=== PATIENT | male | born 1965 | race Caucasian/White ===

== ENCOUNTER 2016-11-10 13:28 | Emergency (ER) | payer MEDICARE ==
[2016-11-10] MEDS ORDERED: BENZTROPINE MESYLATE INJ 2 MG/2 ML AMPULE IV ONE ×2 (14:00→15:15)
--- NOTE | 2016-11-10 14:02 | ER Document Report ---
ED General - General Mode of Arrival: Medic Information source: Patient, Relative - DAUGHTER TRAVEL OUTSIDE OF THE [place] IN LAST 30 DAYS: No - HPI Onset: Just prior to arrival Associated symptoms: None Exacerbated by: Denies Relieved by: Denies Similar symptoms previously: Yes - A few years ago <DEIDRA NUGENT - Last Filed: 11/10/16 19:20> <ANUPAMISHAANASTACIA - Last Filed: 11/11/16 01:35> <BASHIR BERRY - Last Filed: 11/12/16 15:13> - General Chief Complaint: Allergic Reaction Stated Complaint: POSSIBLE ALLERGIC REACTION Notes: Patient presents via EMS for dystonic reaction. Daughter reports that she went to walk November and when she came back patient was jerking. Patient takes multiple medications for history of stroke bipolar schizophrenia depression. He reports he had a lot of pain on his left side last night he woke up crying. He reports he has a history of pain to that area. This is not unusual. He eventually cried himself to sleep. He felt fine this morning when he woke up. Approximately 2 hours ago he started having a dystonic reaction such as muscle jerking the left side. He now has arched back, facial mouth tugging to right side. Reports he feels like he is having a hard time breathing. Denies fever vomiting diarrhea. Denies trauma. (DEIDRA NUGENT) - Related Data Allergies/Adverse Reactions: varenicline tartrate [From Chantix] Allergy (Unknown, Verified 04/18/14 08:47) Past Medical History - General Information source: Patient, Relative - Social History Frequency of alcohol use: None Drug Abuse: None Lives with: Family - Past Medical History Cardiac Medical History: Reports: Hx Coronary Artery Disease, Hx Hypercholesterolemia, Hx Hypertension Denies: Hx Heart Attack Pulmonary Medical History: Reports: Hx COPD, Hx Pneumonia Denies: Hx Asthma, Hx Bronchitis Neurological Medical History: Reports: Hx Cerebrovascular Accident - left side effected. Denies: Hx Seizures Musculoskeltal Medical History: Reports Hx Arthritis Psychiatric Medical History: Reports: Hx Bipolar Disorder - Immunizations Hx Diphtheria, Pertussis, Tetanus Vaccination: No <DEIDRA NUGENT - Last Filed: 11/10/16 19:20> - Social History Smoking Status: Unknown if Ever Smoked Family History: Reviewed & Not Pertinent <BASHIR BERRY - Last Filed: 11/12/16 15:13> Course - Laboratory Result Diagrams: 11/10/16 17:05 11/10/16 13:40 <DEIDRA NUGENT - Last Filed: 11/10/16 19:20> - Laboratory Result Diagrams: 11/10/16 17:05 11/10/16 13:40 <ANUPANASTACIA LION - Last Filed: 11/11/16 01:35> - Laboratory Result Diagrams: 11/10/16 17:05 11/10/16 13:40 <BASHIR BERRY - Last Filed: 11/12/16 15:13> - Re-evaluation Re-evalutation: 11/10/16 14:16 I have consulted the attending provider dr archibald per [facility] guidelines who advised cogentin 1mg IV. Pt has already received 50mg IV benadryl Daughter is not sure of all his medications. Daughter reports she hides his medications from him because he tries to take them as he wants. 11/10/16 14:20 I contacted [facility] they are faxing me his list of medications. 11/10/16 15:01 Received faxed medication list from [facility]. Patient is supposed to be taking Cogentin 2 mg by mouth every day with food. Daughter reports they have not been able to afford the medication he has not been receiving it. Also discovered patient has smoked pot at approximately 10:00. Daughter went to [facility] at around 11:30 when she came back he was having a dystonic type reaction. Patient received 1 mg of Cogentin in his IV. He seems to be relaxing more. 11/10/16 16:48 I had José Miguel from the psych consult patient. She has contacted Dr. Amilcar Limon. During conversation with the daughters it was discovered that he stopped all his antipsychotic medication at one time. The following medications were stopped- cogentin, trazadone, clonopin, celexa, geodon, gapabentin. Dr Limon is concerned for neuro malignant syndrome. 11/10/16 17:42 CK. Not elevated. I contacted Dr. Limon. She reports he came needs to be repeated in 6 hours. She also reports the first CK is often not elevated. She reports needs to be monitored if the CK does go up and he should be admitted to be treated for those symptoms with fluids. If not he should be kept in the emergency department overnight monitored and she will be in in the morning to see him. Patient has been given amantadine and will have another dose later tonight. Dr. Archibald updated on plan of care 11/10/16 19:21 Report given to Anastacia BOLNAOS. (DEIDRA NUGENT) 11/11/16 Patient reevaluated, he states that he feels restless and he wants to be old asleep, he is asking for something for this, ticks and spasms have not appeared to have worsened. Patient given Ativan 0.5 mg after he continued ask. CK trended, is not significantly elevated, no evidence of rhabdomyolysis or other acute abnormality, patient medically cleared. (ANASTACIA SOLORIO) 11/12/16 15:09 Pt has no complaint at this time. CT shows old lacunar infarcts and no acute changes. He is medically cleared. Evaluated by psych and IVC will be upheld. Will be transferred to [facility] under Dr. Johnson's service. (BASHIR BERRY) - Vital Signs Vital signs: Temp Pulse Resp BP Pulse Ox 97.8 F 85 16 145/80 H 97 11/12/16 10:20 11/12/16 10:20 11/12/16 10:20 11/12/16 10:20 11/12/16 10:20 (ANASTACIA SOLORIO) (BASHIR BERRY) - Laboratory Laboratory results interpreted by me: 11/10/16 11/10/16 11/10/16 13:40 15:48 17:05 Hgb 12.4 L 12.4 L Hct 37.4 L MCV 79 L MCH 26.1 L 26.3 L Monocytes % 14.3 H 16.0 H Urine Protein 30 H Urine Ketones TRACE H (ANASTACIA SOLORIO) (BASHIR BERRY) Discharge <DEIDRA NUGENT - Last Filed: 11/10/16 19:20> <ANASTACIA SOLORIO - Last Filed: 11/11/16 01:35> - Discharge Admitting Provider: Dr. Johnson <BASHIR BERRY - Last Filed: 11/12/16 15:13> - Discharge Clinical Impression: Dystonic drug reaction Psychosis Qualifiers: Psychosis type: unspecified psychosis type Qualified Code(s): F29 - Unspecified psychosis not due to a substance or known physiological condition Condition: Stable Disposition: PSYCH HOSP/UNIT Referrals: BASHIR KELLY MD [Primary Care Provider] - Follow up as needed
[2016-11-10 14:56] LABS: ABSOLUTE BASOPHILS # (AUTO) 0.1 10^3/uL (0.0-0.2); ABSOLUTE EOSINOPHILS # (AUTO) 0.1 10^3/uL (0.0-0.6); ABSOLUTE LYMPHOCYTES (AUTO) 1.4 10^3/uL (0.5-4.7); ABSOLUTE NEUT (AUTO) 4.7 10^3/uL (1.7-8.2); BASOPHILS % (AUTO) 0.8 % (0-2); EOSINOPHILS % (AUTO) 1.8 % (0-6); HEMATOCRIT 38.1 % (37.9-51.0); HEMOGLOBIN 12.4 g/dL (13.5-17.0); HGB HCT DIFFERENCE -0.9; LYMPHOCYTES % (AUTO) 18.9 % (13-45); MEAN CORPUSCULAR HEMOGLOBIN 26.1 pg (27.0-33.4); MEAN CORPUSCULAR HGB CONC 32.5 g/dL (32.0-36.0); MEAN CORPUSCULAR VOLUME 80 fl (80-97); MONOCYTES % (AUTO) 14.3 % (3-13); RED BLOOD COUNT 4.75 10^6/uL (4.35-5.55); RED CELL DISTRIBUTION WIDTH 13.9 % (11.5-14.0); SEGMENTED NEUTROPHILS % (AUTO) 64.2 % (42-78); WHITE BLOOD COUNT 7.2 10^3/uL (4.0-10.5)
[2016-11-10 15:11] LABS: ALANINE AMINOTRANSFERASE 23 U/L (21-72); ALBUMIN 3.8 g/dL (3.5-5.0); ALKALINE PHOSPHATASE 108 U/L (38-126); ANION GAP 12 (5-19); ASPARTATE AMINO TRANSFERASE 17 U/L (17-59); BILIRUBIN,TOTAL 0.5 mg/dL (0.2-1.3); BLOOD UREA NITROGEN 11 mg/dL (7-20); CALCIUM 9.5 mg/dL (8.4-10.2); CARBON DIOXIDE 25 mmol/L (22-30); CHLORIDE 103 mmol/L (98-107); CREATININE RESULT 1.08 mg/dL (0.52-1.25); GLUCOSE 82 mg/dL (75-110); POTASSIUM 4.3 mmol/L (3.6-5.0); SODIUM 139.6 mmol/L (137-145); TOTAL PROTEIN 7.4 g/dL (6.3-8.2)
[2016-11-10] MEDS ORDERED: NORMAL SALINE 1000 ML 1,000 ML IV ONE (16:47)
[2016-11-10 17:11] LABS: URINE BARBITURATES SCREEN NEGATIVE; URINE METHADONE SCREEN NEGATIVE; URINE OPIATES LOW NEGATIVE; URINE PHENCYCLIDINE SCREEN NEGATIVE
[2016-11-10 17:21] LABS: ABSOLUTE BASOPHILS # (AUTO) 0.1 10^3/uL (0.0-0.2); ABSOLUTE EOSINOPHILS # (AUTO) 0.1 10^3/uL (0.0-0.6); ABSOLUTE LYMPHOCYTES (AUTO) 1.7 10^3/uL (0.5-4.7); ABSOLUTE MONOCYTES (AUTO) 1.2 10^3/uL (0.1-1.4); ABSOLUTE NEUT (AUTO) 4.4 10^3/uL (1.7-8.2); BASOPHILS % (AUTO) 0.8 % (0-2); EOSINOPHILS % (AUTO) 1.9 % (0-6); HEMATOCRIT 37.4 % (37.9-51.0); HEMOGLOBIN 12.4 g/dL (13.5-17.0); HGB HCT DIFFERENCE -0.2; LYMPHOCYTES % (AUTO) 22.5 % (13-45); MEAN CORPUSCULAR HEMOGLOBIN 26.3 pg (27.0-33.4); MEAN CORPUSCULAR HGB CONC 33.2 g/dL (32.0-36.0); MEAN CORPUSCULAR VOLUME 79 fl (80-97); RED BLOOD COUNT 4.73 10^6/uL (4.35-5.55); SEGMENTED NEUTROPHILS % (AUTO) 58.8 % (42-78); WHITE BLOOD COUNT 7.5 10^3/uL (4.0-10.5)
[2016-11-10] MEDS: AMANTADINE HCL 100 MG CAPSULE PO SCH (17:41)
[2016-11-10 19:10] LABS: APPEARANCE,URINE CLEAR; BILIRUBIN,URINE NEGATIVE (NEGATIVE); GLUCOSE, URINE NEGATIVE (NEGATIVE); KETONES,URINE TRACE mg/dL (NEGATIVE); LEUKOCYTE ESTERASE,URINE NEGATIVE (NEGATIVE); NITRITE,URINE NEGATIVE (NEGATIVE); PROTEIN,URINE 30 mg/dL (NEGATIVE); URINE SPECIFIC GRAVITY 1.008; UROBILINOGEN,URINE NEGATIVE mg/dL (<2.0)
[2016-11-10] MEDS ORDERED: LORAZEPAM INJ 2 MG/1 ML VIAL IV ONE (23:02)
[2016-11-11] MEDS ORDERED: DIPHENHYDRAMINE HCL 50 MG/ML VIAL IV ONE (03:32)
[2016-11-11] MEDS: AMANTADINE HCL 100 MG CAPSULE PO SCH ×3 (05:58→22:00)
[2016-11-11] MEDS: METFORMIN HCL 500 MG TABLET PO SCH ×2 (09:43→19:08)
[2016-11-11] MEDS ORDERED: NORMAL SALINE 1000 ML 1,000 ML IV SCH (10:00)
--- NOTE | 2016-11-11 10:29 | ER Document Report ---
Doctor's Note Notes: 11/11/16 10:25 Patient is currently laying in bed. He still does do some jerking periodically. His total CK on repeated determinations yesterday was quite low. He remains unclear if his behavior was all psychiatric, or partially dystonic due to not taking his medication.
--- NOTE | 2016-11-11 11:00 | PSYCHOLOGICAL NOTE ---
Psych Note - Psych Note Psych Note: Patient presents via EMS for dystonic reaction. Patient is demonstrating inappropriate affect with randomly laughing and crying. Patient states there is a man in the corner who is trying to kill him and he is scared. Patient continued disclosed that he is trying to get a washing machine for his daughter. Patient then discussed broadening his grandson. Patient is demonstrating dystonic reaction. Patient's daughter Navdeep states that the patient is on numerous medications and they were unable to fill the prescription for his psych medications this month. She continue disclosed the patient is seen by [facility] and ran out of his meds on Tuesday. She continued disclosed that she has never seen him like this. Patient is alert and orientated to person place and time. Mood is expanded with labile affect. Patient denies suicidal and homicidal ideation. Patient is responding to internal stimuli in the form of auditory and visual hallucinations; persecutory delusions are noted. Thought process is disorganized. Conversational speech is pressured. Eye contact was poor. Intellectual abilities appear to be average range. Attention and concentration are poor. Insight, judgment, impulse control are poor. 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 Unspecified bipolar per history by family Schizophrenia per history by family Impression\plan: At this time patient needs to be watched for possible medical complications due to stopping all psychiatric medications appropriately. Once medically cleared patient will be reevaluated. Dr. Limon was consulted on the care and management of this patient attending physician is in agreement with recommendations and disposition
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
[2016-11-11] MEDS: LEVETIRACETAM 500 MG TABLET PO SCH (19:09)
[2016-11-11] MEDS: BENZTROPINE MESYLATE 1 MG TABLET PO SCH (19:09)
[2016-11-11] MEDS: HALOPERIDOL 5 MG TABLET PO SCH (19:10)
[2016-11-11] MEDS ORDERED: LORAZEPAM 1 MG TABLET PO ONE (23:19)
[2016-11-12] MEDS: BENZTROPINE MESYLATE 1 MG TABLET PO SCH (10:25)
[2016-11-12] MEDS: METFORMIN HCL 500 MG TABLET PO SCH (10:25)
[2016-11-12] MEDS: LEVETIRACETAM 500 MG TABLET PO SCH (10:25)
[2016-11-12] MEDS: HALOPERIDOL 5 MG TABLET PO SCH (10:25)
--- NOTE | 2016-11-12 12:47 | PSYCHOLOGICAL NOTE ---
Psych Note - Psych Note Psych Note: Clinician conducted check in with patient Patient presented via EMS for dystonic reaction. Patient is demonstrating continued psychosis. Patient discloses that he no longer sees the man in the corner however is continuing with flight of thought and discussion of hallucinations such as the crocodile he states was in his room earlier. Patient was agitated because he felt he was lied to by staff and family because he had been unable to speak with his daughter. Clinician assisted patient in calling his daughter Navdeep. No concerns are noted during phone call other than continued inappropriate laughing. Patient calmly ended phone call went back to room with clinician. Patient is alert and orientated to person place and time. Mood is expanded with labile affect. Patient denies suicidal homicidal ideation. Patient is demonstrating responding to internal stimuli in the form of auditory and visual hallucinations; persecutory delusions are noted. Thought process is disorganized with flight of thought. Conversational speech is pressured. Eye contact was fair. Intellectual abilities. Be within average range. Attention and concentration are poor insight, judgment, impulse control are poor Unspecified bipolar per history by family Schizophrenia per history by family Impression\plan: Patient is recommended for IVC; he currently is a danger to himself with his impaired insight judgment impulse control due to his current psychosis. Patient is recommended for inpatient treatment. Dr. Limon was consulted on the care and management of this patient; attending physician is in agreement with recommendations and disposition.
[2016-11-12 17:14] VITALS: BP 136/80
== END 2016-11-12 17:10 ==
LOC: ER 13:28
DX: G24.09 Other drug induced dystonia (principal); F29 Unspecified psychosis not due to a substance or known physiological condition; I25.10 Atherosclerotic heart disease of native coronary artery without angina pectoris; E78.00 Pure hypercholesterolemia, unspecified; I10 Essential (primary) hypertension; J44.9 Chronic obstructive pulmonary disease, unspecified; Z86.73 Personal history of transient ischemic attack (TIA), and cerebral infarction without residual deficits; F31.9 Bipolar disorder, unspecified; F20.9 Schizophrenia, unspecified
CPT/HCPCS: 96376; 99285; 96374; 96375; 36415; 82550; 85025; 80053; 81001; 80307; 70450; A9270 ×11; J0515; J1200; J2060; J7030; J3490

== ENCOUNTER 2017-08-29 10:35 | Inpatient (IN) | payer MEDICARE ==
[2017-08-29] MEDS ORDERED: NORMAL SALINE 1000 ML 1,000 ML IV ONE (11:31)
--- NOTE | 2017-08-29 11:31 | ER Document Report ---
ED Medical Screen (RME) - General Chief Complaint: Abdominal Pain Stated Complaint: ABDOMINAL PAIN Time Seen by Provider: 08/29/17 11:26 Notes: Patient is a difficult historian. Patient presents with complaints of abdominal pain nausea vomiting as well as chest congestion and shortness of breath. TRAVEL OUTSIDE OF THE [place] IN LAST 30 DAYS: No - Related Data Allergies/Adverse Reactions: varenicline tartrate [From Chantix] Allergy (Unknown, Verified 08/29/17 10:36) Past Medical History - Social History Chew tobacco use (# tins/day): No Frequency of alcohol use: None Drug Abuse: None - Past Medical History Cardiac Medical History: Reports: Hx Coronary Artery Disease, Hx Hypercholesterolemia, Hx Hypertension Denies: Hx Heart Attack Pulmonary Medical History: Reports: Hx COPD, Hx Pneumonia Denies: Hx Asthma, Hx Bronchitis Neurological Medical History: Reports: Hx Cerebrovascular Accident - left side effected. Denies: Hx Seizures Renal/ Medical History: Denies: Hx Peritoneal Dialysis Musculoskeltal Medical History: Reports Hx Arthritis Psychiatric Medical History: Reports: Hx Bipolar Disorder, Hx Schizophrenia - Immunizations Hx Diphtheria, Pertussis, Tetanus Vaccination: No Physical Exam - Vital signs Vitals: Temp Pulse Resp BP Pulse Ox 98.7 F 104 H 17 130/87 H 95 08/29/17 10:46 08/29/17 10:46 08/29/17 10:46 08/29/17 10:46 08/29/17 10:46 Course - Vital Signs Vital signs: Temp Pulse Resp BP Pulse Ox 98.7 F 104 H 17 130/87 H 95 08/29/17 10:46 08/29/17 10:46 08/29/17 10:46 08/29/17 10:46 08/29/17 10:46
[2017-08-29] MEDS ORDERED: ONDANSETRON HCL INJ/PF 4 MG/2 ML SDV ONE (12:11)
[2017-08-29] MEDS ORDERED: ONDANSETRON HCL INJ/PF 4 MG/2 ML SDV IV ONE (12:11)
[2017-08-29] MEDS ORDERED: MORPHINE SULFATE 10 MG/ML INJ IV ONE (12:12)
[2017-08-29 12:25] LABS: HEMATOCRIT 41.6 % (37.9-51.0); HEMOGLOBIN 13.9 g/dL (13.5-17.0); HGB HCT DIFFERENCE 0.1; MEAN CORPUSCULAR HEMOGLOBIN 25.9 pg (27.0-33.4); MEAN CORPUSCULAR HGB CONC 33.5 g/dL (32.0-36.0); MEAN CORPUSCULAR VOLUME 77 fl (80-97); RED BLOOD COUNT 5.39 10^6/uL (4.35-5.55); RED CELL DISTRIBUTION WIDTH 13.7 % (11.5-14.0)
[2017-08-29 12:30] LABS: APPEARANCE,URINE SLIGHTLY-CLOUDY; BILIRUBIN,URINE NEGATIVE (NEGATIVE); GLUCOSE, URINE NEGATIVE (NEGATIVE); KETONES,URINE 20 mg/dL (NEGATIVE); LEUKOCYTE ESTERASE,URINE NEGATIVE (NEGATIVE); NITRITE,URINE NEGATIVE (NEGATIVE); PROTEIN,URINE >=500 mg/dL (NEGATIVE); URINE SPECIFIC GRAVITY 1.026; UROBILINOGEN,URINE NEGATIVE mg/dL (<2.0)
[2017-08-29 12:34] LABS: ALANINE AMINOTRANSFERASE 27 U/L (21-72); ALBUMIN 4.4 g/dL (3.5-5.0); ALKALINE PHOSPHATASE 126 U/L (38-126); ASPARTATE AMINO TRANSFERASE 19 U/L (17-59); BILIRUBIN,DIRECT 0.5 mg/dL (0.0-0.4); BILIRUBIN,TOTAL 0.8 mg/dL (0.2-1.3); BLOOD UREA NITROGEN 17 mg/dL (7-20); CARBON DIOXIDE 34 mmol/L (22-30); CHLORIDE 81 mmol/L (98-107); CREATININE RESULT 0.99 mg/dL (0.52-1.25); GLUCOSE 121 mg/dL (75-110); LIPASE 68.9 U/L (23-300); POTASSIUM 3.6 mmol/L (3.6-5.0); TOTAL PROTEIN 7.7 g/dL (6.3-8.2)
[2017-08-29 12:42] LABS: ANION GAP 19 (5-19); SODIUM 134.2 mmol/L (137-145)
[2017-08-29 12:49] LABS: BACTERIA,URINE TRACE /HPF; WBC,URINE 0-1 /HPF
[2017-08-29 12:49] LABS: BASOPHILS % (MANUAL) 0 % (0-2); EOSINOPHILS % (MANUAL) 0 % (0-6); LYMPHOCYTES % (MANUAL) 7 % (13-45); TOTAL CELLS COUNTED 100
[2017-08-29 12:53] LABS: RBC MORPHOLOGY COMMENT NORMO-CYTIC/CHROMIC
[2017-08-29] MEDS ORDERED: METOCLOPRAMIDE HCL INJ/PF 10 MG/2 ML SDV IV ONE (13:10)
[2017-08-29] MEDS ORDERED: RINGERS SOLUTION,LACTATED 1,000 ML IV ONE (13:10)
--- NOTE | 2017-08-29 13:17 | ER Document Report ---
ED General - General Mode of Arrival: Ambulatory Information source: Patient TRAVEL OUTSIDE OF THE [place] IN LAST 30 DAYS: No - HPI Onset: Yesterday <ALONDRA CASTELLANOS - Last Filed: 08/29/17 13:41> <CHLOE PRATER - Last Filed: 08/29/17 16:03> - General Chief Complaint: Abdominal Pain Stated Complaint: ABDOMINAL PAIN Time Seen by Provider: 08/29/17 11:26 Notes: Patient is a 51 year old male presenting to the emergency department accompanied by relative complaining of multiple symptoms including abdominal pain, nausea and vomiting onset last night. Relative states that the patient had symptoms had started off as rhinorrhea, cough with sputum, and chest congestion onset a week ago that has progressively gotten worse. Relative states patient was at his PCP's, Dr. Kelly, office when he began to repeatedly vomit, to which he was directed to the emergency department. (ALONDRA CASTELLANOS) - Related Data Allergies/Adverse Reactions: varenicline tartrate [From Chantix] Allergy (Unknown, Verified 08/29/17 10:36) Past Medical History - General Information source: Patient - Social History Smoking Status: Current Every Day Smoker Chew tobacco use (# tins/day): No Frequency of alcohol use: None Drug Abuse: None Family History: Reviewed & Not Pertinent Patient has suicidal ideation: No Patient has homicidal ideation: No - Past Medical History Cardiac Medical History: Reports: Hx Coronary Artery Disease, Hx Hypercholesterolemia, Hx Hypertension Pulmonary Medical History: Reports: Hx COPD, Hx Pneumonia Neurological Medical History: Reports: Hx Cerebrovascular Accident - left side effected Musculoskeltal Medical History: Reports Hx Arthritis Psychiatric Medical History: Reports: Hx Bipolar Disorder, Hx Schizophrenia - Immunizations Hx Diphtheria, Pertussis, Tetanus Vaccination: No <ALONDRA CASTELLANOS - Last Filed: 08/29/17 13:41> Review of Systems - Review of Systems Constitutional: No symptoms reported EENT: See HPI, Nose discharge, Other Cardiovascular: No symptoms reported Respiratory: See HPI, Cough, Sputum Gastrointestinal: See HPI, Abdominal pain, Nausea, Vomiting Genitourinary: No symptoms reported Male Genitourinary: No symptoms reported Musculoskeletal: No symptoms reported Skin: No symptoms reported Hematologic/Lymphatic: No symptoms reported Neurological/Psychological: No symptoms reported -: Yes All other systems reviewed and negative <ALONDRA CASTELLANOS - Last Filed: 08/29/17 13:41> Physical Exam - General General appearance: Appears well, Alert In distress: None - HEENT Head: Normocephalic, Atraumatic Eyes: Normal Conjunctiva: Normal Pupils: PERRL Mucous membranes: Moist - Respiratory Respiratory status: No respiratory distress Chest status: Nontender Breath sounds: Rhonchi - Cardiovascular Rhythm: Regular Heart sounds: Normal auscultation Murmur: No Friction rub: No Gallop: None auscultated - Abdominal Inspection: Normal Distension: No distension Bowel sounds: Normal Tenderness: Nontender Organomegaly: No organomegaly - Back Back: Normal - Extremities General upper extremity: Normal inspection, Normal ROM General lower extremity: Normal inspection, Normal ROM - Neurological Neuro grossly intact: Yes Cognition: Normal Orientation: AAOx4 Sd Coma Scale Eye Opening: Spontaneous [place] Coma Scale Verbal: Oriented Sd Coma Scale Motor: Obeys Commands [place] Coma Scale Total: 15 Speech: Normal - Psychological Associated symptoms: Normal affect, Normal mood - Skin Skin Temperature: Warm Skin Moisture: Dry Skin Color: Normal <ALONDRA CASTELLANOS - Last Filed: 08/29/17 13:41> - Vital signs Vitals: Temp Pulse Resp BP Pulse Ox 98.7 F 104 H 17 130/87 H 95 08/29/17 10:46 08/29/17 10:46 08/29/17 10:46 08/29/17 10:46 08/29/17 10:46 Course - Laboratory Result Diagrams: 08/29/17 11:59 08/29/17 11:59 <ALONDRA CASTELLANOS - Last Filed: 08/29/17 13:41> - Laboratory Result Diagrams: 08/29/17 11:59 08/29/17 11:59 - Diagnostic Test Radiology reviewed: Image reviewed, Reports reviewed - CT scan shows gastric distention with no other abdominal abnormality. There is an 8 mm nodule in the right middle lobe. - EKG Interpretation by Dc EKG shows normal: Sinus rhythm, Moira, Intervals, QRS Complexes. abnormal: ST-T Waves - Diffuse nonspecific T abnormalities Rate: Normal - 81 Rhythm: NSR When compared to previous EKG there are: Changes noted - There are biphasic T waves in the V leads which are new compared to 5 years ago. - Consults Dr. Kelly Time consulted: 15:30 Consulted provider: will see as inpatient - Telemetry observation <CHLOE PRATER - Last Filed: 08/29/17 16:03> - Re-evaluation Re-evalutation: 08/29/17 16:02 Patient does have biphasic P waves in the V leads which are new compared to 5 years ago. He is hypomagnesemic at this time. He specifically denies any chest pain last night when the nausea vomiting started or at all throughout the day today. (CHLOE PRATER) - Vital Signs Vital signs: Temp Pulse Resp BP Pulse Ox 98.1 F 100 12 143/87 H 97 08/29/17 12:40 08/29/17 12:40 08/29/17 15:13 08/29/17 15:12 08/29/17 15:13 - Laboratory Laboratory results interpreted by me: 08/29/17 08/29/17 08/29/17 11:40 11:59 11:59 WBC 25.0 H MCV 77 L MCH 25.9 L Seg Neuts % (Manual) 84 H Lymphocytes % (Manual) 7 L Abs Neuts (Manual) 21.0 H Abs Monocytes (Manual) 2.3 H Sodium 134.2 L Chloride 81 L Carbon Dioxide 34 H Glucose 121 H Magnesium Direct Bilirubin 0.5 H Urine Protein >=500 H Urine Ketones 20 H 08/29/17 11:59 WBC MCV MCH Seg Neuts % (Manual) Lymphocytes % (Manual) Abs Neuts (Manual) Abs Monocytes (Manual) Sodium Chloride Carbon Dioxide Glucose Magnesium 1.2 L* Direct Bilirubin Urine Protein Urine Ketones Discharge <ALONDRA CASTELLANOS - Last Filed: 08/29/17 13:41> - Discharge Admitting Provider: Damon Unit Admitted: Telemetry <CHLOE PRATER - Last Filed: 08/29/17 16:03> - Discharge Clinical Impression: Viral upper respiratory tract infection with cough, Hypomagnesemia, Gastric distention Abdominal pain Qualifiers: Abdominal location: unspecified location Qualified Code(s): R10.9 - Unspecified abdominal pain Nausea and vomiting Qualifiers: Vomiting type: unspecified Vomiting Intractability: non-intractable Qualified Code(s): R11.2 - Nausea with vomiting, unspecified Leukocytosis Qualifiers: Leukocytosis type: unspecified Qualified Code(s): D72.829 - Elevated white blood cell count, unspecified Condition: Stable Disposition: ADMITTED OBSERVATION Referrals: BASHIR KELLY MD [Primary Care Provider] - Follow up as needed Scribe Attestation: 08/29/17 14:18 I personally performed the services described in the documentation, reviewed and edited the documentation which was dictated to the scribe in my presence, and it accurately records my words and actions. (CHLOE PRATER) Scribe Documentation - Scribe Written by Blaynee:: Katerin Pedro, 08/29/2017, 13:21 acting as scribe for :: Christiano <ALONDRA CASTELLANOS - Last Filed: 08/29/17 13:41>
[2017-08-29 13:18] LABS: ADD ON TESTING BLD IN LAB ACKNOWLEDGE
[2017-08-29 14:15] LABS: MAGNESIUM 1.2 mg/dL (1.6-2.3)
[2017-08-29] MEDS ORDERED: MAGNESIUM SULFATE/D5W 1 GM/100 ML RTUPB IV ONE (14:17)
--- NOTE | 2017-08-29 14:17 | RADIOLOGY REPORT (SQ) ---
EXAM DESCRIPTION: CHEST PA/LAT COMPLETED DATE/TIME: 08/29/2017 1:44 pm REASON FOR STUDY: abd pain/vomit COMPARISON: 06/12/2012 NUMBER OF VIEWS: Two view. TECHNIQUE: Frontal and lateral radiographic views of the chest acquired. LIMITATIONS: None. FINDINGS: LUNGS AND PLEURA: No opacities, masses or pneumothorax. No pleural effusion. Attenuated bl ood vessels and flattened kolton-diaphragms. MEDIASTINUM AND HILAR STRUCTURES: No masses. No contour abnormalities. HEART AND VASCULAR STRUCTURES: Heart normal in size and contour. No evidence for failure. BONES: No acute findings. HARDWARE: None in the chest. OTHER: No other significant finding. IMPRESSION: COPD. NO ACUTE RADIOGRAPHIC FINDING IN THE CHEST. TECHNICAL DOCUMENTATION: JOB ID: [id number] [employer]- All Rights Reserved
--- NOTE | 2017-08-29 14:21 | RADIOLOGY REPORT (SQ) ---
EXAM DESCRIPTION: CT ABD/PELVIS WITH IV ONLY COMPLETED DATE/TIME: 08/29/2017 2:02 pm REASON FOR STUDY: abd pain/vomit COMPARISON: None. TECHNIQUE: CT scan of the abdomen and pelvis performed using helical scanning technique with dynamic intravenous contrast injection. No oral contrast. Images reviewed with lung, soft tissue, and bone windows. Reconstructed coronal and sagittal MPR images reviewed. Delayed images for evaluation of the urinary system also acquired. All images stored on PACS. All CT scanners at this facility use dose modulation, iterative reconstruction, and/or weight based d osing when appropriate to reduce radiation dose to as low as reasonably achievable (ALARA). [facility]: Dose Right [facility]: CareDose [facility]: Dose Right [facility]: Teradose 4D [facility]: [employer] CONTRAST TYPE AND DOSE: contrast/concentration: Isovue 370.00 mg/ml; Total Contrast Delivered: 63.0 ml; Total Saline Delivered: 61.0 ml RENAL FUNCTION: BUN 17 creatinine 1.0 RADIATION DOSE: . LIMITATIONS: Motion. FINDINGS: LOWER CHEST: 8 mm nodule in the middle lobe. LIVER: Normal size. No masses. No dilated ducts. SPLEEN: Normal size. No focal lesions. PANCREAS: No masses. No significant calcifications. No adjacent inflammation or peripancreatic fluid collections. Pancreatic duct not dilated. GALLBLADDER: No identified stones by CT criteria. No inflammatory changes to suggest cholecystitis. ADRENAL GLANDS: No significant masses or asymmetry. RIGHT KIDNEY AND URETER: No solid masses. No significant calcifications. No hydronephrosis or hyd roureter. LEFT KIDNEY AND URETER: No solid masses. No significant calcifications. No hydronephrosis or hydr oureter. AORTA AND VESSELS: No aneurysm. No dissection. Renal arteries, SMA, celiac without stenosis. RETROPERITONEUM: No retroperitoneal adenopathy, hemorrhage or masses. BOWEL AND PERITONEAL CAVITY: Mild gastric distention. No masses or inflammatory changes. No free flu id or peritoneal masses. APPENDIX: Normal. PELVIS: No mass. No free fluid. Normal bladder. ABDOMINAL WALL: Clips left groin. BONES: No significant or acute findings. OTHER: No other significant finding. IMPRESSION: 1. Mild gastric distention. No evidence of small-bowel obstruction. 2. 8 mm ground-glass nodule in the middle lobe. TECHNICAL DOCUMENTATION: JOB ID: [id number] Quality ID # [id number]: Final reports with documentation of one or more dose reduction techniques (e.g., Au tomated exposure control, adjustment of the mA and/or kV according to patient size, use of iterative reconstruction technique) 2010 [employer]- All Rights Reserved
[2017-08-29 16:05] LABS: ADD ON TESTING BLD IN LAB ACKNOWLEDGE
[2017-08-29 16:45] LABS: CREATINE KINASE 91 U/L (55-170)
[2017-08-29] MEDS ORDERED: ZOLPIDEM TARTRATE 5 MG TABLET PO PRN (17:40)
[2017-08-29] MEDS ORDERED: DOCUSATE SODIUM 100 MG CAPSULE PO PRN (17:40)
[2017-08-29] MEDS ORDERED: IPRATROPIUM/ALBUTEROL 0.5-2.5 MG/3 ML AMPUL NEB PRN (17:51)
[2017-08-29] MEDS ORDERED: MORPHINE SULFATE 10 MG/ML INJ IV PRN (18:12)
--- NOTE | 2017-08-29 18:12 | PDOC H&P ---
History of Present Illness Admission Date/PCP: 08/29/17 16:12 BASHIR KELLY Patient complains of: Nausea, vomiting, abd. pain- for the past 1-2 days; had cough and fever 1 week ago prior to onset of vomiting. History of Present Illness: AMISHA ABBOTT is a 51 year old male with hx of DM2/HTN/Hyperlipidemia/CAD s.p NC/CVD s.p CVA/COPD/GERD/Vitamin D def./Depression/Bipolar disorder/ Schizophrenia/Chronic smoker, who is chronically non- compliant with meds and clinic visit.He was brought by her daughter to my office and he was vomiting continuously and he was sent to ER for evaluation. He has had cough and fever the previous week and started having persistent nausea and vomiting with some abdominal pain the day prior to presentation. Denied hx of travel or diarrhea. Past Medical History Cardiac Medical History: Reports: Coronary Artery Disease, Hyperlipidema, Hypertension Denies: Myocardial Infarction Pulmonary Medical History: Reports: Chronic Obstructive Pulmonary Disease (COPD) , Pneumonia Denies: Asthma, Bronchitis Neurological Medical History: Denies: Seizures Musculoskeltal Medical History: Reports: Arthritis Psychiatric Medical History: Reports: Bipolar Disorder Hematology: Reports: Anemia Social History Smoking Status: Current Every Day Smoker Family History Family History: Reviewed & Not Pertinent Parental Family History Reviewed: Yes Children Family History Reviewed: Yes Sibling(s) Family History Reviewed.: Yes Medication/Allergy Allergies/Adverse Reactions: varenicline tartrate [From Chantix] Allergy (Unknown, Verified 08/29/17 10:36) Review of Systems All systems: as per PMH Constitutional: PRESENT: as per HPI, fever(s), weakness Eyes: PRESENT: as per HPI Ears: PRESENT: as per HPI Nose, Mouth, and Throat: PRESENT: as per HPI Cardiovascular: PRESENT: as per HPI Respiratory: PRESENT: cough Gastrointestinal: PRESENT: abdominal pain, nausea, vomiting Genitourinary: PRESENT: as per HPI Musculoskeletal: PRESENT: as per HPI Integumentary: PRESENT: as per HPI Neurological: PRESENT: as per HPI Psychiatric: PRESENT: as per HPI Endocrine: PRESENT: as per HPI Hematologic/Lymphatic: PRESENT: as per HPI Physical Exam Vital Signs: Temp Pulse Resp BP Pulse Ox 98.1 F 100 17 131/87 H 93 08/29/17 12:40 08/29/17 12:40 08/29/17 17:41 08/29/17 17:41 08/29/17 17:41 General appearance: PRESENT: cooperative, mild distress Eye exam: PRESENT: EOMI, PERRLA Ear exam: PRESENT: normal external ear exam, TM's normal bilaterally Mouth exam: PRESENT: dry mucosa, neck supple Neck exam: PRESENT: full ROM Respiratory exam: PRESENT: decreased breath sounds, symmetrical Cardiovascular exam: PRESENT: +S1, +S2 Pulses: PRESENT: +2 pedal pulses bilateral GI/Abdominal exam: PRESENT: normal bowel sounds, soft Rectal exam: PRESENT: deferred Extremities exam: PRESENT: full ROM Musculoskeletal exam: PRESENT: full ROM Neurological exam: PRESENT: alert, awake, oriented to person, oriented to place , oriented to time Psychiatric exam: PRESENT: normal mood Results Impressions: Abdomen/Pelvis CT 08/29/17 11:26 IMPRESSION: 1. Mild gastric distention. No evidence of small-bowel obstruction. 2. 8 mm ground-glass nodule in the middle lobe. Chest X-Ray 08/29/17 11:26 IMPRESSION: COPD. NO ACUTE RADIOGRAPHIC FINDING IN THE CHEST. Assessment & Plan - Diagnosis (1) Nausea and vomiting Qualifiers: Vomiting type: unspecified Vomiting Intractability: non-intractable Qualified Code(s): R11.2 - Nausea with vomiting, unspecified Is this a current diagnosis for this admission?: Yes Plan: Ct with IV fluid normal saline at 100 longterm/hour; ct with Zofran 4 mg q4h iV prn; Ct with Reglan 5 mg QAC po; Monitor fluid input/out chart; Monitor chemistries daily. (2) Abdominal pain Qualifiers: Abdominal location: unspecified location Qualified Code(s): R10.9 - Unspecified abdominal pain Is this a current diagnosis for this admission?: Yes Plan: Ct with Morphine 2 mg q4h IV prn; Tylenol 650 mg q4h po prn. (3) Leukocytosis Qualifiers: Leukocytosis type: unspecified Qualified Code(s): D72.829 - Elevated white blood cell count, unspecified Is this a current diagnosis for this admission?: Yes Plan: Follow up repeat CBC; monitor vital signs closely; for blood culture if leukocytosis persists. (4) Hypomagnesemia Is this a current diagnosis for this admission?: Yes Plan: Ct with Mg sulfate 2 IV x1; Mg oxide 400 mg BID po; f/u mg level. (5) Diabetes mellitus type 2 in nonobese Is this a current diagnosis for this admission?: Yes Plan: Ct with accucheck qac, qhs with slidding scale humalog insulin [facility] protocol; Metformin 500 mg BID po; 1800 calorie ADA diet. (6) Hypertension Qualifiers: Hypertension type: essential hypertension Qualified Code(s): I10 - Essential (primary) hypertension Is this a current diagnosis for this admission?: Yes Plan: Ct with Losartan 50 mg qd po; 2 g sodium diet. (7) Hyperlipidemia Qualifiers: Hyperlipidemia type: mixed hyperlipidemia Qualified Code(s): E78.2 - Mixed hyperlipidemia Is this a current diagnosis for this admission?: Yes Plan: Ct with Simvastatin 20 mg qhs po; 200 mg cholesterol diet. (8) COPD (chronic obstructive pulmonary disease) Is this a current diagnosis for this admission?: Yes Plan: Ct with Duonebs q6h prn; Oxygen by N/C 2 L/min to keep saturation >92%. (9) CVA (cerebrovascular accident) Is this a current diagnosis for this admission?: Yes Plan: Ct with Aspirin 325 mg qd po, cardiac diet (10) CAD (coronary artery disease) Qualifiers: Associated angina: without angina Is this a current diagnosis for this admission?: Yes Plan: Ct with Aspirin 325 mg qd po; cardiac diet. (11) Reflux esophagitis Is this a current diagnosis for this admission?: Yes Plan: Ct with Prevacid 30 mg qd po. (12) Depression Qualifiers: Depression Type: major depressive disorder Is this a current diagnosis for this admission?: Yes Plan: Ct with Celexa 40 mg qd po. (13) Bipolar disorder Is this a current diagnosis for this admission?: Yes Plan: Ct with Gabapentin 600 mg TID PO. (14) DVT prophylaxis Is this a current diagnosis for this admission?: Yes Plan: Ct with Lovenox 40 mg qd subcut; SCD. - Time Time Spent: 30 to 50 Minutes Smoking Cessation Education: 3 to 10 minutes Medications reviewed and adjusted accordingly: Yes Anticipated discharge: Home Within: within 48 hours
[2017-08-29] MEDS ORDERED: DEXTROSE 40% GEL 15 GM TUBE X 2 PO PRN (18:37)
[2017-08-29] MEDS ORDERED: DEXTROSE 50%-WATER SYRINGE 12.5 GM/25 ML DOSE IV PRN (18:37)
[2017-08-29] MEDS ORDERED: DEXTROSE 50%-WATER SYRINGE 25 GM/50 ML DOSE IV PRN (18:37)
[2017-08-29] MEDS ORDERED: DEXTROSE 40% GEL 15 GM TUBE PO PRN (18:37)
[2017-08-29] MEDS ORDERED: GLUCAGON,HUMAN RECOMB 1 MG INJ IM PRN (18:37)
[2017-08-29] MEDS ORDERED: INFLUENZA ADLT QUAD (36MOS+) 2017-18 VAC 0.5 ML SYR IM PRN (18:39)
[2017-08-29 18:44] LABS: CHOLESTEROL 149.33 mg/dL (0-200); Direct HDL 55 mg/dL (>40); TRIGLYCERIDES 91 mg/dL (<150)
[2017-08-29 18:55] LABS: DIRECT LDL 79 mg/dL (<100)
[2017-08-29] MEDS: ONDANSETRON HCL INJ/PF 4 MG/2 ML SDV IV PRN (18:56)
[2017-08-29] MEDS ORDERED: ENOXAPARIN SODIUM INJ 40 MG/0.4 ML DISP.SYRIN SUBCUT ONE (19:00)
[2017-08-29] MEDS ORDERED: MAGNESIUM OXIDE 400 MG TABLET PO ONE (19:30)
--- NOTE | 2017-08-29 20:35 | EKG REPORT ---
SEVERITY:- ABNORMAL ECG - SINUS RHYTHM NONSPECIFIC T ABNORMALITIES, DIFFUSE LEADS : Confirmed by: Kenna Carlson 29-Aug-2017 20:35:08
[2017-08-29] MEDS: NORMAL SALINE 1000 ML 1,000 ML IV PRN (20:40)
[2017-08-29] MEDS: MAGNESIUM SULFATE/D5W 1 GM/100 ML RTUPB IV SCH ×2 (20:41→22:39)
[2017-08-29] MEDS: METOCLOPRAMIDE HCL 10 MG TABLET PO SCH (21:13)
[2017-08-29] MEDS: SIMVASTATIN 10 MG TABLET PO SCH (21:13)
[2017-08-29] MEDS: GABAPENTIN 300 MG CAPSULE PO SCH (21:13)
[2017-08-30] MEDS: GABAPENTIN 300 MG CAPSULE PO SCH ×3 (05:26→22:11)
[2017-08-30] MEDS: LANSOPRAZOLE 30 MG TAB.RAP.DR PO SCH (05:27)
[2017-08-30 05:49] LABS: HEMATOCRIT 35.6 % (37.9-51.0); HGB HCT DIFFERENCE -0.5; MEAN CORPUSCULAR HEMOGLOBIN 25.9 pg (27.0-33.4); MEAN CORPUSCULAR HGB CONC 32.8 g/dL (32.0-36.0); MEAN CORPUSCULAR VOLUME 79 fl (80-97)
[2017-08-30 05:51] LABS: HEMOGLOBIN 11.7 g/dL (13.5-17.0)
[2017-08-30 05:54] LABS: ANION GAP 11 (5-19); BLOOD UREA NITROGEN 9 mg/dL (7-20); CALCIUM 8.5 mg/dL (8.4-10.2); CARBON DIOXIDE 29 mmol/L (22-30); CHLORIDE 95 mmol/L (98-107); CREATININE RESULT 0.82 mg/dL (0.52-1.25); GLUCOSE 88 mg/dL (75-110); POTASSIUM 3.7 mmol/L (3.6-5.0); SODIUM 135.2 mmol/L (137-145)
[2017-08-30] MEDS: ACETAMINOPHEN 325 MG TABLET PO PRN (06:08)
[2017-08-30] MEDS: NORMAL SALINE 1000 ML 1,000 ML IV PRN ×2 (08:11→16:41)
[2017-08-30] MEDS: METOCLOPRAMIDE HCL 10 MG TABLET PO SCH ×4 (08:13→22:10)
[2017-08-30] MEDS: METFORMIN HCL 500 MG TABLET PO SCH ×2 (08:14→16:38)
[2017-08-30] MEDS: INSULIN LISPRO 100 UNIT/ML 3 ML VIAL SUBCUT SCH ×3 (08:17→16:41)
[2017-08-30] MEDS: ONDANSETRON HCL INJ/PF 4 MG/2 ML SDV IV PRN ×2 (08:17→12:25)
--- NOTE | 2017-08-30 09:57 | PDOC PROGRESS REPORT ---
Subjective Progress Note for:: 08/30/17 Subjective:: He is feeling better He is no longer vomiting but still has mild nausea.He has some throat pain from repeated vomiting yesterday. We will put him on throat lozenges. The leukocytosis has decreased. He is for discharge tomorrow since he is on observation. Reason For Visit: INTRACTABLE VOMITING/METABOLIC ALKALOSIS, Physical Exam Vital Signs: Temp Pulse Resp BP Pulse Ox 97.7 F 68 16 139/97 H 98 08/30/17 07:26 08/30/17 07:26 08/30/17 07:26 08/30/17 07:26 08/30/17 07:26 Intake & Output 08/29/17 08/30/17 08/31/17 06:59 06:59 06:59 Intake Total 2065 260 Output Total 1250 Balance 815 260 Weight 58.6 kg General appearance: PRESENT: no acute distress, cooperative, well-developed, well-nourished Head exam: PRESENT: atraumatic, normocephalic Eye exam: PRESENT: EOMI, PERRLA Ear exam: PRESENT: normal external ear exam, TM's normal bilaterally Mouth exam: PRESENT: neck supple, tongue midline Neck exam: PRESENT: full ROM Respiratory exam: PRESENT: decreased breath sounds, symmetrical Cardiovascular exam: PRESENT: +S1, +S2 Pulses: PRESENT: +2 pedal pulses bilateral GI/Abdominal exam: PRESENT: normal bowel sounds, soft Rectal exam: PRESENT: deferred Extremities exam: PRESENT: full ROM Musculoskeletal exam: PRESENT: full ROM Neurological exam: PRESENT: alert, awake, oriented to person, oriented to place , oriented to time Psychiatric exam: PRESENT: normal mood Results Laboratory Results: 08/30/17 04:58 08/30/17 04:58 08/30/17 08/30/17 04:58 04:58 WBC 16.0 H RBC 4.50 Hgb 11.7 L D Hct 35.6 L MCV 79 L MCH 25.9 L MCHC 32.8 RDW 14.0 Plt Count 276 Sodium 135.2 L Potassium 3.7 Chloride 95 L Carbon Dioxide 29 Anion Gap 11 BUN 9 Creatinine 0.82 Est GFR ( Amer) > 60 Est GFR (Non-Af Amer) > 60 Glucose 88 Calcium 8.5 Impressions: Abdomen/Pelvis CT 08/29/17 11:26 IMPRESSION: 1. Mild gastric distention. No evidence of small-bowel obstruction. 2. 8 mm ground-glass nodule in the middle lobe. Chest X-Ray 08/29/17 11:26 IMPRESSION: COPD. NO ACUTE RADIOGRAPHIC FINDING IN THE CHEST. Assessment & Plan - Diagnosis (1) Nausea and vomiting Qualifiers: Vomiting type: unspecified Vomiting Intractability: non-intractable Qualified Code(s): R11.2 - Nausea with vomiting, unspecified Is this a current diagnosis for this admission?: Yes Plan: Ct with IV fluid normal saline at 100 correction/hour; ct with Zofran 4 mg q4h iV prn; Ct with Reglan 5 mg QAC po; Monitor fluid input/out chart; Monitor chemistries daily. (2) Abdominal pain Qualifiers: Abdominal location: unspecified location Qualified Code(s): R10.9 - Unspecified abdominal pain Is this a current diagnosis for this admission?: Yes Plan: Ct with Morphine 2 mg q4h IV prn; Tylenol 650 mg q4h po prn. (3) Leukocytosis Qualifiers: Leukocytosis type: unspecified Qualified Code(s): D72.829 - Elevated white blood cell count, unspecified Is this a current diagnosis for this admission?: Yes Plan: Follow up repeat CBC; monitor vital signs closely; for blood culture if leukocytosis persists. (4) Hypomagnesemia Is this a current diagnosis for this admission?: Yes Plan: Ct with Mg sulfate 2 IV x1; Mg oxide 400 mg BID po; f/u mg level. (5) Diabetes mellitus type 2 in nonobese Is this a current diagnosis for this admission?: Yes Plan: Ct with accucheck qac, qhs with slidding scale humalog insulin [facility] protocol; Metformin 500 mg BID po; 1800 calorie ADA diet. (6) Hypertension Qualifiers: Hypertension type: essential hypertension Qualified Code(s): I10 - Essential (primary) hypertension Is this a current diagnosis for this admission?: Yes Plan: Ct with Losartan 50 mg qd po; 2 g sodium diet. (7) Hyperlipidemia Qualifiers: Hyperlipidemia type: mixed hyperlipidemia Qualified Code(s): E78.2 - Mixed hyperlipidemia Is this a current diagnosis for this admission?: Yes Plan: Ct with Simvastatin 20 mg qhs po; 200 mg cholesterol diet. (8) COPD (chronic obstructive pulmonary disease) Is this a current diagnosis for this admission?: Yes Plan: Ct with Duonebs q6h prn; Oxygen by N/C 2 L/min to keep saturation >92%. (9) CVA (cerebrovascular accident) Is this a current diagnosis for this admission?: Yes Plan: Ct with Aspirin 325 mg qd po, cardiac diet (10) CAD (coronary artery disease) Qualifiers: Associated angina: without angina Is this a current diagnosis for this admission?: Yes Plan: Ct with Aspirin 325 mg qd po; cardiac diet. (11) Reflux esophagitis Is this a current diagnosis for this admission?: Yes Plan: Ct with Prevacid 30 mg qd po. (12) Depression Qualifiers: Depression Type: major depressive disorder Is this a current diagnosis for this admission?: Yes Plan: Ct with Celexa 40 mg qd po. (13) Bipolar disorder Is this a current diagnosis for this admission?: Yes Plan: Ct with Gabapentin 600 mg TID PO. (14) DVT prophylaxis Is this a current diagnosis for this admission?: Yes Plan: Ct with Lovenox 40 mg qd subcut; SCD.
[2017-08-30] MEDS: ENOXAPARIN SODIUM INJ 40 MG/0.4 ML DISP.SYRIN SUBCUT SCH (10:19)
[2017-08-30] MEDS: ASPIRIN 325 MG TABLET PO SCH (10:19)
[2017-08-30] MEDS: LOSARTAN POTASSIUM 50 MG TABLET PO SCH (10:19)
[2017-08-30] MEDS: MAGNESIUM OXIDE 400 MG TABLET PO SCH ×2 (10:20→17:09)
[2017-08-30] MEDS: CITALOPRAM HYDROBROMIDE 20 MG TABLET PO SCH (10:22)
[2017-08-30] MEDS: BENZOCAINE/MENTHOL SORE THROAT LOZENGE BUCCAL PRN ×3 (10:57→19:24)
--- NOTE | 2017-08-30 11:38 | Physician Advisory Note ---
Physician Advisor ProgressNote .: Pursuant to the plan for [facility], I have reviewed the medical record for this patient. Physician Advisor Statement: Please consider documentin. "Acute ___[location] abd pain, suspect due to " 2. "Acute Hyponatremia, likely due to ____" [intravascular volume depletion?] 3. Medical necessity: "Pt still with , not yet safe for d/c clinically", or "I am concerned about " Ex: substantial leukocytosis, continued hyponatremia, recurrent tachycardia (then bradycardia at 41 on 12 AM?), intermittent tachypnea to 26, relative hypoxemia (?chronic from COPD?), ? not yet able to maintain adequate po intake? , ... - If this Medicare pt is being kept in hospital a 2nd MN for clinical reasons beyond just mild nausea (which is typically managed outpt), then appropriate to change to Inpatient status. 4. Please avoid copy/paste in notes unless fully editing it for accuracy each day. (It's catnip for auditors, & can give inaccurate impressions, such as: - Did you intend to give pt more IV Mag on 08/30, or was that old info that only applied to 08/29?) Thanks for your help with increasing documentation specificity/accuracy! CK
[2017-08-30] MEDS: SIMVASTATIN 10 MG TABLET PO SCH (22:12)
[2017-08-31] MEDS: ACETAMINOPHEN 325 MG TABLET PO PRN (05:00)
[2017-08-31] MEDS: BENZOCAINE/MENTHOL SORE THROAT LOZENGE BUCCAL PRN ×2 (05:00→10:56)
[2017-08-31] MEDS: GABAPENTIN 300 MG CAPSULE PO SCH ×2 (05:01→14:42)
[2017-08-31] MEDS: LANSOPRAZOLE 30 MG TAB.RAP.DR PO SCH (05:01)
[2017-08-31 08:12] LABS: HEMATOCRIT 34.5 % (37.9-51.0); HEMOGLOBIN 11.5 g/dL (13.5-17.0); MEAN CORPUSCULAR HEMOGLOBIN 26.3 pg (27.0-33.4); MEAN CORPUSCULAR HGB CONC 33.3 g/dL (32.0-36.0); MEAN CORPUSCULAR VOLUME 79 fl (80-97); RED BLOOD COUNT 4.38 10^6/uL (4.35-5.55); WHITE BLOOD COUNT 12.1 10^3/uL (4.0-10.5)
[2017-08-31 08:29] LABS: ANION GAP 11 (5-19); BLOOD UREA NITROGEN 6 mg/dL (7-20); CALCIUM 8.5 mg/dL (8.4-10.2); CARBON DIOXIDE 23 mmol/L (22-30); CHLORIDE 105 mmol/L (98-107); CREATININE RESULT 0.77 mg/dL (0.52-1.25); GLUCOSE 130 mg/dL (75-110); SODIUM 139.1 mmol/L (137-145)
[2017-08-31] MEDS: INSULIN LISPRO 100 UNIT/ML 3 ML VIAL SUBCUT SCH (10:45)
[2017-08-31] MEDS: ENOXAPARIN SODIUM INJ 40 MG/0.4 ML DISP.SYRIN SUBCUT SCH (10:56)
[2017-08-31] MEDS: ASPIRIN 325 MG TABLET PO SCH (10:56)
[2017-08-31] MEDS: LOSARTAN POTASSIUM 50 MG TABLET PO SCH (10:56)
[2017-08-31] MEDS: MAGNESIUM OXIDE 400 MG TABLET PO SCH (10:56)
[2017-08-31] MEDS: METOCLOPRAMIDE HCL 10 MG TABLET PO SCH ×2 (10:57→12:33)
[2017-08-31] MEDS: CITALOPRAM HYDROBROMIDE 20 MG TABLET PO SCH (10:57)
[2017-08-31] MEDS: METFORMIN HCL 500 MG TABLET PO SCH (10:57)
[2017-08-31] MEDS ORDERED: INSULIN LISPRO 100 UNIT/ML 3 ML VIAL SUBCUT PRN (12:26)
[2017-08-31] MEDS ORDERED: ALPRAZOLAM 0.5 MG TABLET PO ONE (14:45)
--- NOTE | 2017-08-31 15:03 | PDOC DISCHARGE SUMMARY ---
General - Admit/Disc Date/PCP Admission Date/Primary Care Provider: 08/30/17 16:24 BASHIR KELLY Discharge Date: 08/31/17 - Discharge Diagnosis (1) Nausea and vomiting Is this a current diagnosis for this admission?: Yes (2) Abdominal pain Is this a current diagnosis for this admission?: Yes (3) Leukocytosis Is this a current diagnosis for this admission?: Yes (4) Hypomagnesemia Is this a current diagnosis for this admission?: Yes (5) Diabetes mellitus type 2 in nonobese Is this a current diagnosis for this admission?: Yes (6) Hypertension Is this a current diagnosis for this admission?: Yes (7) Hyperlipidemia Is this a current diagnosis for this admission?: Yes (8) COPD (chronic obstructive pulmonary disease) Is this a current diagnosis for this admission?: Yes (9) CVA (cerebrovascular accident) Is this a current diagnosis for this admission?: Yes (10) CAD (coronary artery disease) Is this a current diagnosis for this admission?: Yes (11) Reflux esophagitis Is this a current diagnosis for this admission?: Yes (12) Depression Is this a current diagnosis for this admission?: Yes (13) Bipolar disorder Is this a current diagnosis for this admission?: Yes (14) DVT prophylaxis Is this a current diagnosis for this admission?: Yes - Additional Information Resuscitation Status: Full Code Home Medications: Aspirin/Dipyridamole [Aggrenox 25 mg-200 mg Capsule] 1 cap PO Q12 08/29/17 Benztropine Mesylate [Benztropine Mesylate 2 mg Tablet] 2 mg PO Q12 08/29/17 Citalopram Hydrobromide [Citalopram HBr] 40 mg PO DAILY 08/29/17 Ergocalciferol (Vitamin D2) [Drisdol 50,000 unit (1.25MG) Capsule] 50,000 unit PO MO@1000 08/29/17 Gabapentin [Neurontin 300 mg Capsule] 600 mg PO Q8 08/29/17 Metformin HCl [Glucophage 500 mg Tablet] 500 mg PO BIDBS 08/29/17 Ranitidine HCl [Zantac 150 mg Tablet] 300 mg PO DAILY 08/29/17 Simvastatin [Zocor 40 mg Tablet] 40 mg PO QHS 08/29/17 Trazodone HCl [Desyrel] 300 mg PO QHS 08/29/17 Ziprasidone HCl [Geodon 40 mg Capsule] 40 mg PO Q12 08/29/17 Zolpidem Tartrate [Ambien 5 mg Tablet] 10 mg PO QHS 08/29/17 Benzocaine/Menthol [Chloraseptic Sore Throat Lozenge] 1 each BUCCAL Q4H PRN #90 lozenge 08/31/17 Losartan Potassium [Cozaar 50 mg Tablet] 50 mg PO DAILY #30 tablet 08/31/17 Magnesium Oxide [Mag-Ox 400 mg Tablet] 400 mg PO DAILY #30 tablet 08/31/17 Metoclopramide HCl [Reglan 10 mg Tablet] 5 mg PO ACHS #120 tablet 08/31/17 History of Present Illness History of Present Illness: AMISHA ABBOTT is a 51 year old male with hx of DM2/HTN/Hyperlipidemia/CAD s.p OR/CVD s.p CVA/COPD/GERD/Vitamin D def./Depression/Bipolar disorder/ Schizophrenia/Chronic smoker, who is chronically non- compliant with meds and clinic visit.He was brought by her daughter to my office and he was vomiting continuously and he was sent to ER for evaluation. He has had cough and fever the previous week and started having persistent nausea and vomiting with some abdominal pain the day prior to presentation. Denied hx of travel or diarrhea. Hospital Course Hospital Course: 51 year old man with multiple medical history and non-compliant to medications and clinic appointments who was admitted for abd. pain and vomiting- resolved/ Hypomagnesemia and hyponatremia- resolved and Leukocytosis- almost resolved. He was admitted at telemetry floor and started on IV fluids, Zofran, Reglan, Morphine prn, Chloraseptic lozenges. The abdominal CT showed only mild gastric distension possibly due to DM gastroparesis. He is table and back to his baseline. Extensive was done on dietary and medication compliance and he has a lot of social issues and was referred to social services aide/data recovery planner. He will be discharged home today to follow up with his PCP in 1 week. All his medications were refilled as requested and called in to [facility] pharmacy, [facility]. Physical Exam Vital Signs: Temp Pulse Resp BP Pulse Ox 98.1 F 71 16 128/76 H 96 08/31/17 12:04 08/31/17 12:08/31/17 12:04 08/31/17 12:04 08/31/17 12:04 Intake & Output 08/30/17 08/31/17 09/01/17 06:59 06:59 06:59 Intake Total 2639 Output Total 1275 Balance 1364 Weight 60.5 kg General appearance: PRESENT: no acute distress, well-developed, well-nourished Head exam: PRESENT: atraumatic, normocephalic Eye exam: PRESENT: PERRLA Mouth exam: PRESENT: moist, neck supple, tongue midline Neck exam: PRESENT: full ROM Respiratory exam: PRESENT: clear to auscultation roshan, symmetrical Cardiovascular exam: PRESENT: +S1, +S2 Pulses: PRESENT: +2 pedal pulses bilateral GI/Abdominal exam: PRESENT: normal bowel sounds, soft Rectal exam: PRESENT: deferred Extremities exam: PRESENT: full ROM Musculoskeletal exam: PRESENT: full ROM Neurological exam: PRESENT: alert, awake, oriented to person, oriented to place , oriented to time Psychiatric exam: PRESENT: normal mood Results Laboratory Results: 08/31/17 07:09 08/31/17 07:09 08/31/17 08/31/17 07:09 07:09 WBC 12.1 H RBC 4.38 Hgb 11.5 L Hct 34.5 L MCV 79 L MCH 26.3 L MCHC 33.3 RDW 14.0 Plt Count 246 Sodium 139.1 Potassium 4.0 Chloride 105 Carbon Dioxide 23 Anion Gap 11 BUN 6 L Creatinine 0.77 Est GFR ( Amer) > 60 Est GFR (Non-Af Amer) > 60 Glucose 130 H Calcium 8.5 Impressions: Abdomen/Pelvis CT 08/29/17 11:26 IMPRESSION: 1. Mild gastric distention. No evidence of small-bowel obstruction. 2. 8 mm ground-glass nodule in the middle lobe. Chest X-Ray 08/29/17 11:26 IMPRESSION: COPD. NO ACUTE RADIOGRAPHIC FINDING IN THE CHEST.
[2017-08-31 16:15] VITALS: BP 148/75
== END 2017-08-31 17:51 | disposition home or self-care (01) | DRG 74 ==
LOC: ER 10:35 → EH 16:12 → 4W 20:02 → OBSVTOIN 08-30 16:24
PROVIDERS: ADMIT Internal Medicine; ATTEND Internal Medicine
PROC: 3E0F73Z Introduction of Anti-inflammatory into Respiratory Tract, Via Natural or Artificial Opening (ICD-10-PCS; principal; 2017-08-30)
DX: E11.43 Type 2 diabetes mellitus with diabetic autonomic (poly)neuropathy (principal); E87.2 Acidosis; I69.854 Hemiplegia and hemiparesis following other cerebrovascular disease affecting left non-dominant side; E87.1 Hypo-osmolality and hyponatremia; K31.84 Gastroparesis; E83.42 Hypomagnesemia; I10 Essential (primary) hypertension; J44.9 Chronic obstructive pulmonary disease, unspecified; I25.10 Atherosclerotic heart disease of native coronary artery without angina pectoris; K21.0 Gastro-esophageal reflux disease with esophagitis; F31.9 Bipolar disorder, unspecified; E55.9 Vitamin D deficiency, unspecified; F20.9 Schizophrenia, unspecified; M19.90 Unspecified osteoarthritis, unspecified site; D64.9 Anemia, unspecified; F17.210 Nicotine dependence, cigarettes, uncomplicated; E78.2 Mixed hyperlipidemia; J06.9 Acute upper respiratory infection, unspecified; Z91.14 Patient's other noncompliance with medication regimen; I25.2 Old myocardial infarction; Z79.899 Other long term (current) drug therapy; Z88.8 Allergy status to other drugs, medicaments and biological substances
CPT/HCPCS: 36415; 71020; 74177; 80048; 80053; 80061; 81001; 82550; 82962; 83036; 83690; 83735; 84484; 85025; 85027; 93005; 93010; 96361; 96365; 96375; 99285; J1650; J2270; J2405; J2765; J3475; J7030; J7120

== ENCOUNTER 2017-09-30 10:20 | Emergency (ER) | payer MEDICARE ==
--- NOTE | 2017-09-30 11:21 | ER Document Report ---
HPI - HPI Patient complains to provider of: Med refill Onset: Last week Quality of pain: No pain Severity: None Pain Level: Denies Context: Patient came to the ED for med refills. He states he had a appointment a couple days ago was not able to keep the appointment due to the snow and now he is out of medications and needs a refill. Associated Symptoms: Other - He states he is starting to feel weird as he is out of his medicines Exacerbated by: Denies Relieved by: Denies Similar symptoms previously: Yes Recently seen / treated by doctor: No - ROS ROS below otherwise negative: Yes - CONSTITUTIONAL Constitutional: DENIES: Fever, Chills - EENT EENT: DENIES: Sore Throat, Ear Pain, Eye problems - NEURO Neurology: DENIES: Headache, Weakness, Vision blurred, Dizzinesss / Vertigo - CARDIOVASCULAR Cardiovascular: DENIES: Chest pain - RESPIRATORY Respiratory: DENIES: Trouble Breathing, Coughing - GASTROINTESTINAL Gastrointestinal: DENIES: Abdominal Pain, Nausea, Patient vomiting, Diarrhea, Constipation, Black / Bloody Stools - URINARY Urinary: DENIES: Dysuria, Urgency, Frequency - REPRODUCTIVE Reproductive: DENIES: :, Postmenopausal, Abnormal bleeding / discharge - MUSCULOSKELETAL Musculoskeletal: DENIES: Extremity pain, Back Pain, Neck Pain, Swelling - DERM Skin Color: Normal Skin Problems: None Past Medical History - General Information source: Patient - Social History Smoking Status: Current Every Day Smoker Cigarette use (# per day): Yes Chew tobacco use (# tins/day): No Smoking Education Provided: Yes - 4 minutes Frequency of alcohol use: None Drug Abuse: None Lives with: Family Family History: Reviewed & Not Pertinent Patient has suicidal ideation: No Patient has homicidal ideation: No - Past Medical History Cardiac Medical History: Reports: Hx Coronary Artery Disease, Hx Hypercholesterolemia, Hx Hypertension Pulmonary Medical History: Reports: Hx COPD, Hx Pneumonia EENT Medical History: Reports: None Neurological Medical History: Reports: Hx Cerebrovascular Accident - left side effected Endocrine Medical History: Reports: None Renal/ Medical History: Reports: None Malignancy Medical History: Reports None GI Medical History: Reports: None Musculoskeltal Medical History: Reports Hx Arthritis Skin Medical History: Reports None Psychiatric Medical History: Reports: Hx Bipolar Disorder, Hx Depression, Hx Schizophrenia Traumatic Medical History: Reports: None Infectious Medical History: Reports: None Past Surgical History: Reports: Hx Abdominal Surgery - hernia x 2 - Immunizations Hx Diphtheria, Pertussis, Tetanus Vaccination: No Vertical Provider Document - CONSTITUTIONAL Agree With Documented VS: Yes Exam Limitations: No Limitations General Appearance: WD/WN, No Apparent Distress - INFECTION CONTROL TRAVEL OUTSIDE OF THE [place] IN LAST 30 DAYS: No - HEENT HEENT: Atraumatic, Normal ENT Exam, Normocephalic, PERRLA - NECK Neck: Normal Inspection - RESPIRATORY Respiratory: Breath Sounds Normal O2 Sat by Pulse Oximetry: 96 - CARDIOVASCULAR Cardiovascular: Regular Rate, Regular Rhythm - MUSCULOSKELETAL/EXTREMETIES Musculoskeletal/Extremeties: MAEW, FROM, Non-Tender - NEURO Level of Consciousness: Awake, Alert Motor/Sensory: No Motor Deficit, No Sensory Deficit - DERM Integumentary: Warm, Dry, No Rash Course - Re-evaluation Re-evalutation: 09/30/17 21:50 Prescriptions for Geodon 40 mg twice daily Cogentin 2 mg twice daily Celexa 40 mg daily gabapentin 600 mg 3 times daily and trazodone 300 mg nightly called into [facility] after discussing with Dr. miguel. Patient was instructed to follow-up with his primary doctor by telephone on Tuesday and schedule an appointment for further refills - Vital Signs Vital signs: Temp Pulse Resp BP Pulse Ox 98.8 F 81 18 122/78 96 09/30/17 10:30 09/30/17 10:30 09/30/17 10:30 09/30/17 10:30 09/30/17 10:30 Discharge - Discharge Clinical Impression: Out of psych meds Condition: Stable Disposition: HOME, SELF-CARE Additional Instructions: He was seen today because your iron of your psych medications. I will write you one weeks worth of your Geodon 40 mg twice daily Cogentin 2 mg twice daily Celexa 40 mg daily Gabapentin 600 mg 3 times a day And trazodone 300 mg every bedtime. These prescriptions were called in to [facility] on [facility] in [place] Please call your psychiatrist as soon as possible to schedule an appointment as I am only writing these for 1 week. FOLLOW-UP CARE: If you have been referred to a physician for follow-up care, call the physician s office for an appointment as you were instructed or within the next two days. If you experience worsening or a significant change in your symptoms, notify the physician immediately or return to the Emergency Department at any time for re-evaluation. Referrals: [facility] [Provider Group] - Follow up as needed
[2017-09-30 12:06] VITALS: BP 116/77
== END 2017-09-30 12:06 | disposition home or self-care (01) ==
LOC: ER 10:20
DX: Z76.0 Encounter for issue of repeat prescription (principal); F17.210 Nicotine dependence, cigarettes, uncomplicated
CPT/HCPCS: 99281; 99406

== ENCOUNTER 2017-12-03 08:39 | Emergency (ER) | payer MEDICARE ==
[2017-12-03] MEDS ORDERED: KETOROLAC TROMETHAMINE INJ/PF 30 MG/1 ML SDV IV ONE (09:07)
[2017-12-03 09:31] LABS: ABSOLUTE EOSINOPHILS # (AUTO) 0.4 10^3/uL (0.0-0.6); ABSOLUTE LYMPHOCYTES (AUTO) 1.8 10^3/uL (0.5-4.7); ABSOLUTE MONOCYTES (AUTO) 0.8 10^3/uL (0.1-1.4); ABSOLUTE NEUT (AUTO) 5.2 10^3/uL (1.7-8.2); BASOPHILS % (AUTO) 0.6 % (0-2); EOSINOPHILS % (AUTO) 4.7 % (0-6); HEMATOCRIT 37.8 % (37.9-51.0); HEMOGLOBIN 12.3 g/dL (13.5-17.0); LYMPHOCYTES % (AUTO) 21.5 % (13-45); MEAN CORPUSCULAR HEMOGLOBIN 25.5 pg (27.0-33.4); MEAN CORPUSCULAR HGB CONC 32.5 g/dL (32.0-36.0); MEAN CORPUSCULAR VOLUME 79 fl (80-97); MONOCYTES % (AUTO) 9.3 % (3-13); PLATELET COUNT 242 10^3/uL (150-450); RED BLOOD COUNT 4.81 10^6/uL (4.35-5.55); RED CELL DISTRIBUTION WIDTH 14.4 % (11.5-14.0); SEGMENTED NEUTROPHILS % (AUTO) 63.9 % (42-78); TOTAL CELLS COUNTED % (AUTO) 100 %; WHITE BLOOD COUNT 8.2 10^3/uL (4.0-10.5)
[2017-12-03 09:52] LABS: ALANINE AMINOTRANSFERASE 23 U/L (21-72); ALBUMIN 4.1 g/dL (3.5-5.0); ALKALINE PHOSPHATASE 76 U/L (38-126); ANION GAP 13 (5-19); ASPARTATE AMINO TRANSFERASE 13 U/L (17-59); BILIRUBIN,DIRECT 0.2 mg/dL (0.0-0.4); BILIRUBIN,TOTAL 0.2 mg/dL (0.2-1.3); BLOOD UREA NITROGEN 24 mg/dL (7-20); CALCIUM 10.4 mg/dL (8.4-10.2); CARBON DIOXIDE 28 mmol/L (22-30); CHLORIDE 100 mmol/L (98-107); GLUCOSE 96 mg/dL (75-110); POTASSIUM 4.5 mmol/L (3.6-5.0); SODIUM 141.3 mmol/L (137-145); TOTAL PROTEIN 6.8 g/dL (6.3-8.2)
[2017-12-03 11:46] LABS: APPEARANCE,URINE CLEAR; BILIRUBIN,URINE NEGATIVE (NEGATIVE); COLOR,URINE YELLOW; GLUCOSE, URINE NEGATIVE (NEGATIVE); KETONES,URINE NEGATIVE (NEGATIVE); LEUKOCYTE ESTERASE,URINE NEGATIVE (NEGATIVE); NITRITE,URINE NEGATIVE (NEGATIVE); PROTEIN,URINE NEGATIVE (NEGATIVE); URINE SPECIFIC GRAVITY 1.006; UROBILINOGEN,URINE NEGATIVE mg/dL (<2.0)
--- NOTE | 2017-12-03 12:12 | ER Document Report ---
ED GI/ - General Chief Complaint: Flank Pain Stated Complaint: FLANK PAIN Time Seen by Provider: 12/03/17 08:59 Mode of Arrival: Ambulatory Information source: Patient Notes: Patient is a 52-year-old male who presents to the ER today for about 5 days of right flank pain. Patient states that it stays in that area, does not radiate anywhere else and feels like a "burn." Patient also admits that he has been having some burning with urination. He denies being concerned about any STDs, denies any history of kidney stones denies any blood in his urine, fever, chills. TRAVEL OUTSIDE OF THE [place] IN LAST 30 DAYS: No - Related Data Allergies/Adverse Reactions: varenicline tartrate [From Chantix] Allergy (Unknown, Verified 12/03/17 08:40) Past Medical History - General Information source: Patient - Social History Smoking Status: Current Every Day Smoker Frequency of alcohol use: None Drug Abuse: None Family History: Reviewed & Not Pertinent Patient has suicidal ideation: No Patient has homicidal ideation: No - Past Medical History Cardiac Medical History: Reports: Hx Coronary Artery Disease, Hx Hypercholesterolemia, Hx Hypertension Denies: Hx Heart Attack Pulmonary Medical History: Reports: Hx COPD, Hx Pneumonia Denies: Hx Asthma, Hx Bronchitis Neurological Medical History: Reports: Hx Cerebrovascular Accident - left side effected. Denies: Hx Seizures Renal/ Medical History: Denies: Hx Peritoneal Dialysis Musculoskeltal Medical History: Reports Hx Arthritis Psychiatric Medical History: Reports: Hx Bipolar Disorder, Hx Depression, Hx Schizophrenia Past Surgical History: Reports: Hx Abdominal Surgery - hernia x 2 - Immunizations Hx Diphtheria, Pertussis, Tetanus Vaccination: No Review of Systems - Review of Systems Constitutional: No symptoms reported EENT: No symptoms reported Cardiovascular: No symptoms reported Respiratory: No symptoms reported Gastrointestinal: No symptoms reported Genitourinary: See HPI Male Genitourinary: No symptoms reported Musculoskeletal: No symptoms reported Skin: No symptoms reported Hematologic/Lymphatic: No symptoms reported Neurological/Psychological: No symptoms reported Physical Exam - Vital signs Vitals: Temp Pulse Resp BP Pulse Ox 98.2 F 73 18 101/51 L 96 12/03/17 08:44 12/03/17 08:44 12/03/17 08:44 12/03/17 08:44 12/03/17 08:44 - Notes Notes: PHYSICAL EXAMINATION: GENERAL: Well-appearing and in no acute distress. HEAD: Atraumatic, normocephalic. EYES: Pupils equal round and reactive to light, extraocular movements intact, sclera anicteric, conjunctiva are normal. NECK: Normal range of motion, supple without lymphadenopathy LUNGS: CTAB and equal. No wheezes rales or rhonchi. HEART: Regular rate and rhythm without murmurs ABDOMEN: Soft, no tenderness. No guarding, no rebound BACk: no vertebral tenderness, normal ROM GI/: Right CVA tenderness EXTREMITIES: Normal range of motion, no pitting edema. No cyanosis. NEUROLOGICAL: Cranial nerves grossly intact. Normal sensory/motor exams. PSYCH: Normal mood, normal affect. SKIN: Warm, Dry, normal turgor, no rashes or lesions noted Course - Re-evaluation Re-evalutation: 12/03/17 13:36 Lab work is unremarkable today, urinalysis is completely clear of any blood or infection. Patient be placed on muscle relaxers as he was exquisitely tender for me to palpate his right lower back. 12/03/17 13:36 Patient cannot give us a second urine sample for urine gonorrhea/chlamydia sample and wants to go home. I did advise that if symptoms continue, especially with burning with urination that he needs evaluation for STDs such as gonorrhea and chlamydia. He does agree to this. He denies any penile discharge. - Vital Signs Vital signs: Temp Pulse Resp BP Pulse Ox 98.5 F 62 16 103/64 98 12/03/17 12:29 12/03/17 12:29 12/03/17 12:29 12/03/17 12:29 12/03/17 12:29 - Laboratory Result Diagrams: 12/03/17 09:10 12/03/17 09:10 Laboratory results interpreted by me: 12/03/17 12/03/17 09:10 09:10 Hgb 12.3 L Hct 37.8 L MCV 79 L MCH 25.5 L RDW 14.4 H BUN 24 H Calcium 10.4 H AST 13 L Discharge - Discharge Clinical Impression: Right flank pain Condition: Stable Disposition: HOME, SELF-CARE Additional Instructions: Return immediately for any new or worsening symptoms. Follow up with primary care provider, call tomorrow to make followup appointment. Prescriptions: Cyclobenzaprine HCl [Flexeril 10 mg Tablet] 10 mg PO TIDP PRN #15 tab PRN Reason: Referrals: BASHIR KELLY MD [Primary Care Provider] - Follow up as needed
[2017-12-03 12:30] VITALS: BP 103/64
== END 2017-12-03 12:29 | disposition home or self-care (01) ==
LOC: ER 08:39
DX: R10.9 Unspecified abdominal pain (principal); R30.0 Dysuria; F17.200 Nicotine dependence, unspecified, uncomplicated; I25.10 Atherosclerotic heart disease of native coronary artery without angina pectoris; I10 Essential (primary) hypertension; J44.9 Chronic obstructive pulmonary disease, unspecified; Z88.8 Allergy status to other drugs, medicaments and biological substances
CPT/HCPCS: 99284; 96374; 36415; 85025; 80053; 81001; J1885

== ENCOUNTER 2017-12-29 16:46 | Observation (INO) | payer MEDICARE ==
[2017-12-29] MEDS ORDERED: NORMAL SALINE 1000 ML 1,000 ML IV ONE ×3 (17:08→19:10)
[2017-12-29 17:45] LABS: ABSOLUTE EOSINOPHILS # (AUTO) 0.4 10^3/uL (0.0-0.6); ABSOLUTE LYMPHOCYTES (AUTO) 1.7 10^3/uL (0.5-4.7); ABSOLUTE NEUT (AUTO) 9.6 10^3/uL (1.7-8.2); BASOPHILS % (AUTO) 0.3 % (0-2); HEMATOCRIT 37.4 % (37.9-51.0); HEMOGLOBIN 12.1 g/dL (13.5-17.0); LYMPHOCYTES % (AUTO) 13.3 % (13-45); MEAN CORPUSCULAR HEMOGLOBIN 25.1 pg (27.0-33.4); MEAN CORPUSCULAR HGB CONC 32.3 g/dL (32.0-36.0); MEAN CORPUSCULAR VOLUME 78 fl (80-97); MONOCYTES % (AUTO) 8.1 % (3-13); PLATELET COUNT 239 10^3/uL (150-450); RED BLOOD COUNT 4.81 10^6/uL (4.35-5.55); RED CELL DISTRIBUTION WIDTH 14.3 % (11.5-14.0); SEGMENTED NEUTROPHILS % (AUTO) 75.3 % (42-78); TOTAL CELLS COUNTED % (AUTO) 100 %; WHITE BLOOD COUNT 12.8 10^3/uL (4.0-10.5)
[2017-12-29 17:48] LABS: PROTHROMBIN TIME 13.7 SEC (11.4-15.4)
[2017-12-29 18:03] LABS: ALANINE AMINOTRANSFERASE 16 U/L (21-72); ALBUMIN 3.8 g/dL (3.5-5.0); ALKALINE PHOSPHATASE 70 U/L (38-126); ANION GAP 12 (5-19); ASPARTATE AMINO TRANSFERASE 24 U/L (17-59); BILIRUBIN,DIRECT 0.2 mg/dL (0.0-0.4); BILIRUBIN,TOTAL 0.2 mg/dL (0.2-1.3); BLOOD UREA NITROGEN 36 mg/dL (7-20); CARBON DIOXIDE 25 mmol/L (22-30); CHLORIDE 99 mmol/L (98-107); GLUCOSE 109 mg/dL (75-110); SODIUM 136.3 mmol/L (137-145); TOTAL PROTEIN 6.8 g/dL (6.3-8.2)
[2017-12-29 18:26] LABS: VENOUS BLOOD BASE EXCESS -0.2 mmol/L; VENOUS BLOOD HCO3 24.3 mmol/L (20-32); VENOUS BLOOD PCO2 38.8 mmHg (35-63); VENOUS BLOOD PH 7.41 (7.30-7.42)
[2017-12-29 19:49] LABS: APPEARANCE,URINE SLIGHTLY-CLOUDY; BILIRUBIN,URINE SMALL (NEGATIVE); COLOR,URINE YELLOW; GLUCOSE, URINE NEGATIVE (NEGATIVE); KETONES,URINE NEGATIVE (NEGATIVE); LEUKOCYTE ESTERASE,URINE NEGATIVE (NEGATIVE); NITRITE,URINE NEGATIVE (NEGATIVE); PROTEIN,URINE 30 mg/dL (NEGATIVE); URINE SPECIFIC GRAVITY 1.018; UROBILINOGEN,URINE NEGATIVE mg/dL (<2.0)
--- NOTE | 2017-12-29 20:46 | RADIOLOGY REPORT (SQ) ---
EXAM DESCRIPTION: CHEST SINGLE VIEW COMPLETED DATE/TIME: 12/29/2017 8:14 pm REASON FOR STUDY: hypotension COMPARISON: 08/29/2017 EXAM PARAMETERS: NUMBER OF VIEWS: One view. TECHNIQUE: Single frontal radiographic view of the chest acquired. RADIATION DOSE: NA LIMITATIONS: None. FINDINGS: LUNGS AND PLEURA: Mild basilar subsegmental atelectasis. No dense consolidation or signif icant effusion. Similar emphysema and chronic interstitial changes. No pneumothorax. MEDIASTINUM AND HILAR STRUCTURES: Stable. HEART AND VASCULAR STRUCTURES: Stable. BONES: No acute findings. HARDWARE: None in the chest. OTHER: No other significant finding. IMPRESSION: Mild basilar subsegmental atelectasis. No dense consolidation or significant effusion. TECHNICAL DOCUMENTATION: JOB ID: [id number] [place]-72 2010 [employer]- All Rights Reserved Reading location - IP/workstation name: [email or web address]
--- NOTE | 2017-12-29 21:49 | EKG REPORT ---
SEVERITY:- BORDERLINE ECG - SINUS RHYTHM BORDERLINE PROLONGED QT INTERVAL : Confirmed by: Kenna Carlson 29-Dec-2017 21:48:57
--- NOTE | 2017-12-29 22:12 | RADIOLOGY REPORT (SQ) ---
EXAM DESCRIPTION: CT LTD RENAL STONE PROTOCOL ON COMPLETED DATE/TIME: 12/29/2017 9:04 pm REASON FOR STUDY: abd pain hypotension COMPARISON: None. TECHNIQUE: CT scan of the abdomen and pelvis performed without intravenous or oral contrast. Images reviewed with lung, soft tissue, and bone windows. Reconstructed coronal and sagittal MPR images revi ewed. All images stored on PACS. All CT scanners at this facility use dose modulation, iterative reconstruction, and/or weight based d osing when appropriate to reduce radiation dose to as low as reasonably achievable (ALARA). [facility]: Dose Right [facility]: CareDose [facility]: Dose Right [facility]: Teradose 4D [facility]: Smart Technologies RADIATION DOSE: CT Rad equipment meets quality standard of care and radiation dose reduction techniq ues were employed. CTDIvol: 5.1 mGy. DLP: 249 mGy-cm.mGy. LIMITATIONS: None. FINDINGS: LOWER CHEST: Chronic interstitial changes and basilar scarring -subsegmental atelectasis. NON-CONTRASTED LIVER, SPLEEN, ADRENALS: Evaluation limited by lack of IV contrast. No identified sign ificant masses. PANCREAS: No masses. No peripancreatic inflammatory changes. GALLBLADDER: No identified stones by CT criteria. No inflammatory changes to suggest cholecystitis. RIGHT KIDNEY AND URETER: No suspicious masses. Assessment limited by lack of IV contrast. No signif icant calcifications. No hydronephrosis or hydroureter. LEFT KIDNEY AND URETER: No suspicious masses. Assessment limited by lack of IV contrast. No signifi cant calcifications. No hydronephrosis or hydroureter. AORTA AND RETROPERITONEUM: No aneurysm. No retroperitoneal masses or adenopathy. BOWEL AND PERITONEAL CAVITY: No obvious masses or inflammatory changes. No free fluid. APPENDIX: Normal. PELVIS, BLADDER, AND ABDOMINAL WALL:No abnormal masses. No free fluid. Bladder normal. BONES: No acute findings. OTHER: No other significant finding. IMPRESSION: NO ACUTE PROCESS IN THE ABDOMEN OR PELVIS. COMMENT: Quality ID # [id number]: Final reports with documentation of one or more dose reduction techniques (e.g., Automated exposure control, adjustment of the mA and/or kV according to patient size, use of iterative reconstruction technique) TECHNICAL DOCUMENTATION: JOB ID: [id number] [place]-72 2010 [employer]- All Rights Reserved Reading location - IP/workstation name: [email or web address]
--- NOTE | 2017-12-29 23:28 | ER Document Report ---
ED General - General Chief Complaint: Low Blood Pressure Stated Complaint: BLOOD PRESSURE ISSUES Time Seen by Provider: 12/29/17 17:08 TRAVEL OUTSIDE OF THE U.[place]. IN LAST 30 DAYS: No - HPI Patient complains to provider of: Generalized weakness low blood pressure Notes: Patient coming in for generalized weakness and low blood pressure. Patient states diffuse diarrhea or last few days denies any vomiting. Patient denies any pain upon my evaluation but does complain of significant dizziness. States dizziness is worse with movement. Patient states he does have a history of stroke in the past however currently patient is moving all 4 extremities. Patient resting comfortably upon my evaluation with systolic blood pressure in the 70s. Denies fevers chills nausea vomiting - Related Data Allergies/Adverse Reactions: varenicline tartrate [From Chantix] Allergy (Unknown, Verified 12/29/17 16:57) Past Medical History - Social History Smoking Status: Current Every Day Smoker Chew tobacco use (# tins/day): No Frequency of alcohol use: Social Drug Abuse: None Family History: Reviewed & Not Pertinent Patient has suicidal ideation: No Patient has homicidal ideation: No - Past Medical History Cardiac Medical History: Reports: Hx Coronary Artery Disease, Hx Hypercholesterolemia, Hx Hypertension Denies: Hx Heart Attack Pulmonary Medical History: Reports: Hx COPD, Hx Pneumonia Denies: Hx Asthma, Hx Bronchitis Neurological Medical History: Reports: Hx Cerebrovascular Accident - left side effected. Denies: Hx Seizures Renal/ Medical History: Reports: Hx Peritoneal Dialysis Musculoskeltal Medical History: Reports Hx Arthritis Psychiatric Medical History: Reports: Hx Bipolar Disorder, Hx Depression, Hx Schizophrenia Past Surgical History: Reports: Hx Abdominal Surgery - hernia x 2 - Immunizations Hx Diphtheria, Pertussis, Tetanus Vaccination: No Review of Systems - Review of Systems Constitutional: Other - Hypertension weakness diarrhea dizziness EENT: No symptoms reported Cardiovascular: No symptoms reported Respiratory: No symptoms reported Gastrointestinal: No symptoms reported Genitourinary: No symptoms reported Male Genitourinary: No symptoms reported Musculoskeletal: No symptoms reported Skin: No symptoms reported Hematologic/Lymphatic: No symptoms reported Neurological/Psychological: No symptoms reported -: Yes All other systems reviewed and negative Physical Exam - Vital signs Vitals: Resp Pulse Ox 16 96 12/29/17 16:56 12/29/17 16:56 Interpretation: Hypotensive - General General appearance: Appears well, Alert - HEENT Head: Normocephalic, Atraumatic Eyes: Normal Pupils: PERRL - Respiratory Respiratory status: No respiratory distress Chest status: Nontender Breath sounds: Normal Chest palpation: Normal - Cardiovascular Rhythm: Regular Heart sounds: Normal auscultation Murmur: No - Abdominal Inspection: Normal Distension: No distension Bowel sounds: Normal Tenderness: Nontender Organomegaly: No organomegaly - Back Back: Normal, Nontender - Extremities General upper extremity: Normal inspection, Nontender, Normal color, Normal ROM , Normal temperature General lower extremity: Normal inspection, Nontender, Normal color, Normal ROM , Normal temperature, Normal weight bearing. No: Russell's sign - Neurological Neuro grossly intact: Yes Cognition: Normal Orientation: AAOx4 [place] Coma Scale Eye Opening: Spontaneous Sd Coma Scale Verbal: Oriented Sd Coma Scale Motor: Obeys Commands Sd Coma Scale Total: 15 Speech: Normal Motor strength normal: LUE, RUE, LLE, RLE Sensory: Normal - Psychological Associated symptoms: Normal affect, Normal mood - Skin Skin Temperature: Warm Skin Moisture: Dry Skin Color: Normal Course - Re-evaluation Re-evalutation: 12/29/17 23:26 Laboratory studies not reveal any critical pathology for the patient's symptoms but does show signs of acute renal failure. Patient blood pressure did respond to boluses however still monitoring the patient's blood pressures in the past normally 120-140 systolics. Systolics here still remain 100. Patient still states slightly dizzy. Because of new onset renal failure and patient still be symptomatic the discussed with hospital staff will admit the patient for further evaluation for his prerenal azotemia due to dehydration - Vital Signs Vital signs: Temp Pulse Resp BP Pulse Ox 98.1 F 14 98/64 L 94 12/29/17 20:10 12/29/17 23:01 12/29/17 23:00 12/29/17 23:01 - Laboratory Result Diagrams: 12/29/17 17:20 12/29/17 17:20 Laboratory results interpreted by me: 12/29/17 12/29/17 12/29/17 17:20 17:20 18:54 WBC 12.8 H Hgb 12.1 L Hct 37.4 L MCV 78 L MCH 25.1 L RDW 14.3 H Absolute Neutrophils 9.6 H Sodium 136.3 L BUN 36 H Creatinine 1.99 H Est GFR ( Amer) 43 L Est GFR (Non-Af Amer) 35 L ALT 16 L Urine Protein 30 H Urine Bilirubin SMALL H Critical Care Note - Critical Care Note Total time excluding time spent on procedures (mins): 35 Comments: Multiple evaluation for hypotension Discharge - Discharge Clinical Impression: Diarrhea Qualifiers: Diarrhea type: unspecified type Qualified Code(s): R19.7 - Diarrhea, unspecified Hypotension Qualifiers: Hypotension type: unspecified hypotension type Qualified Code(s): I95.9 - Hypotension, unspecified Acute renal failure Qualifiers: Acute renal failure type: unspecified Qualified Code(s): N17.9 - Acute kidney failure, unspecified Condition: Good Disposition: ADMITTED OBSERVATION Admitting Provider: [facility] Unit Admitted: Medical Floor Referrals: BASHIR KELLY MD [Primary Care Provider] - Follow up as needed
[2017-12-29] MEDS ORDERED: ZOLPIDEM TARTRATE 5 MG TABLET PO PRN (23:40)
[2017-12-29] MEDS ORDERED: ONDANSETRON HCL INJ/PF 4 MG/2 ML SDV IV PRN (23:40)
[2017-12-29] MEDS ORDERED: NORMAL SALINE 1000 ML 1,000 ML IV PRN (23:47)
--- NOTE | 2017-12-30 00:02 | PDOC H&P ---
History of Present Illness Admission Date/PCP: 12/29/17 23:42 BASHIR KELLY History of Present Illness: AMISHA ABBOTT is a 52 year old male patient with past medical history of bipolar disorder, schizophrenia, COPD, coronary artery disease, hyperlipidemia, history of stroke 2x and tobacco dependence. He presented with several day history of watery diarrhea and associated generalized weakness and dizziness. Patient denied any sick contact or any similar illness in the family. At presentation in ER patient found to be hypoxic hypotensive with blood pressure of 70/51. 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 His labs shows creatinine of 1.99 due to prerenal azotemia. Since his blood pressure stays on the low side patient will be admitted for observation and will hydrate him further and his potential discharge in the next 24 hours. Past Medical History Cardiac Medical History: Reports: Coronary Artery Disease, Hyperlipidema, Hypertension Denies: Myocardial Infarction Pulmonary Medical History: Reports: Chronic Obstructive Pulmonary Disease (COPD) , Pneumonia Denies: Asthma, Bronchitis Neurological Medical History: Denies: Seizures Musculoskeltal Medical History: Reports: Arthritis Psychiatric Medical History: Reports: Bipolar Disorder, Depression Hematology: Reports: Anemia Past Surgical History Past Surgical History: Reports: None Social History Smoking Status: Current Every Day Smoker Frequency of Alcohol Use: None Hx Recreational Drug Use: No Hx Prescription Drug Abuse: No Family History Family History: Reviewed & Not Pertinent, COPD Parental Family History Reviewed: Yes Children Family History Reviewed: No Sibling(s) Family History Reviewed.: Yes Medication/Allergy Home Medications: Benztropine Mesylate [Benztropine Mesylate 2 mg Tablet] 2 mg PO Q12 08/29/17 Citalopram Hydrobromide [Citalopram HBr] 40 mg PO DAILY 08/29/17 Ergocalciferol (Vitamin D2) [Drisdol 50,000 unit (1.25MG) Capsule] 50,000 unit PO MO@1000 08/29/17 Gabapentin [Neurontin 300 mg Capsule] 600 mg PO Q8 08/29/17 Metformin HCl [Glucophage 500 mg Tablet] 500 mg PO BIDBS 08/29/17 Ranitidine HCl [Zantac 150 mg Tablet] 300 mg PO DAILY 08/29/17 Simvastatin [Zocor 40 mg Tablet] 40 mg PO QHS 08/29/17 Trazodone HCl [Desyrel] 300 mg PO QHS 08/29/17 Ziprasidone HCl [Geodon 40 mg Capsule] 40 mg PO Q12 08/29/17 Zolpidem Tartrate [Ambien 5 mg Tablet] 10 mg PO QHS 08/29/17 Losartan Potassium [Cozaar 50 mg Tablet] 50 mg PO DAILY #30 tablet 08/31/17 Magnesium Oxide [Mag-Ox 400 mg Tablet] 400 mg PO DAILY #30 tablet 08/31/17 Metoclopramide HCl [Reglan 10 mg Tablet] 5 mg PO ACHS #120 tablet 08/31/17 Allergies/Adverse Reactions: varenicline tartrate [From Chantix] Allergy (Unknown, Verified 12/29/17 16:57) Review of Systems Constitutional: ABSENT: chills, fever(s), headache(s), weight gain, weight loss Ears: ABSENT: hearing changes Cardiovascular: ABSENT: chest pain, dyspnea on exertion, edema, orthropnea, palpitations Respiratory: PRESENT: cough Gastrointestinal: PRESENT: diarrhea Musculoskeletal: PRESENT: muscle weakness Neurological: PRESENT: focal weakness Physical Exam Vital Signs: Temp Pulse Resp BP Pulse Ox 98.1 F 14 98/64 L 94 12/29/17 20:10 12/29/17 23:01 12/29/17 23:00 12/29/17 23:01 General appearance: PRESENT: no acute distress Head exam: PRESENT: atraumatic Mouth exam: PRESENT: dry mucosa Cardiovascular exam: PRESENT: RRR Pulses: PRESENT: normal carotid pulses GI/Abdominal exam: PRESENT: hyperactive bowel sounds Results Impressions: Chest X-Ray 12/29/17 20:00 IMPRESSION: Mild basilar subsegmental atelectasis. No dense consolidation or significant effusion. Limited or Localized CT 12/29/17 20:47 IMPRESSION: NO ACUTE PROCESS IN THE ABDOMEN OR PELVIS. Assessment & Plan - Diagnosis (1) Acute kidney injury Is this a current diagnosis for this admission?: Yes Plan: We will cautiously hydrate him with normal saline at a rate of 1 25 mL/h. Avoid nephrotoxic agent is and monitor his renal function test (2) Hypotension Qualifiers: Hypotension type: other hypotension type Qualified Code(s): I95.89 - Other hypotension Is this a current diagnosis for this admission?: Yes Plan: We will continue hydration (3) Diarrhea Qualifiers: Diarrhea type: unspecified type Qualified Code(s): R19.7 - Diarrhea, unspecified Is this a current diagnosis for this admission?: Yes Plan: Isolation Stool for C. difficile colitis - Time Critical Time spent with patient: 25-34 minutes
[2017-12-30] MEDS ORDERED: LANSOPRAZOLE 30 MG TAB.RAP.DR PO SCH (06:00)
[2017-12-30 07:49] LABS: HEMATOCRIT 34.5 % (37.9-51.0); HEMOGLOBIN 11.1 g/dL (13.5-17.0); MEAN CORPUSCULAR HEMOGLOBIN 25.1 pg (27.0-33.4); MEAN CORPUSCULAR HGB CONC 32.2 g/dL (32.0-36.0); MEAN CORPUSCULAR VOLUME 78 fl (80-97); PLATELET COUNT 201 10^3/uL (150-450); RED BLOOD COUNT 4.42 10^6/uL (4.35-5.55); RED CELL DISTRIBUTION WIDTH 14.4 % (11.5-14.0); WHITE BLOOD COUNT 9.5 10^3/uL (4.0-10.5)
[2017-12-30 08:14] LABS: ANION GAP 11 (5-19); BLOOD UREA NITROGEN 23 mg/dL (7-20); CALCIUM 8.9 mg/dL (8.4-10.2); CARBON DIOXIDE 23 mmol/L (22-30); CHLORIDE 106 mmol/L (98-107); GLUCOSE 88 mg/dL (75-110); POTASSIUM 4.3 mmol/L (3.6-5.0); SODIUM 140.4 mmol/L (137-145)
[2017-12-30] MEDS ORDERED: ACETAMINOPHEN 325 MG TABLET PO PRN (08:51)
[2017-12-30] MEDS ORDERED: NORMAL SALINE 1000 ML 1,000 ML IV PRN (09:01)
[2017-12-30] MEDS ORDERED: ENOXAPARIN SODIUM INJ 40 MG/0.4 ML DISP.SYRIN SUBCUT SCH (10:00)
[2017-12-30] MEDS ORDERED: (PENDING PHARMACY ID) (Citalopram Hydrobromide [Citalopram Hbr] 40 MG) PO SCH (10:00)
[2017-12-30] MEDS ORDERED: (PENDING PHARMACY ID) (Ranitidine Hcl [Zantac 150 Mg Tablet] 300 MG) PO SCH (10:00)
[2017-12-30] MEDS ORDERED: ZIPRASIDONE HCL 40 MG CAPSULE PO SCH (10:00)
[2017-12-30] MEDS ORDERED: MAGNESIUM OXIDE 400 MG TABLET PO SCH (10:00)
[2017-12-30] MEDS ORDERED: (PENDING PHARMACY ID) (Benztropine Mesylate [Benztropine Mesylate 2 Mg Tablet] 2 MG) PO SCH (10:00)
[2017-12-30] MEDS ORDERED: METOCLOPRAMIDE HCL 10 MG TABLET PO SCH (11:00)
[2017-12-30] MEDS ORDERED: BENZTROPINE MESYLATE 1 MG TABLET PO ONE (11:30)
[2017-12-30] MEDS ORDERED: CITALOPRAM HYDROBROMIDE 20 MG TABLET PO ONE (11:30)
[2017-12-30] MEDS ORDERED: GABAPENTIN 300 MG CAPSULE PO SCH (14:00)
--- NOTE | 2017-12-30 14:47 | PDOC DISCHARGE SUMMARY ---
General - Admit/Disc Date/PCP Admission Date/Primary Care Provider: 12/29/17 23:42 BASHIR KELLY Discharge Date: 12/30/17 - Discharge Diagnosis (1) Acute kidney injury Is this a current diagnosis for this admission?: Yes (2) Diarrhea Is this a current diagnosis for this admission?: Yes Summary: resolved prior to admission (3) Hypotension Is this a current diagnosis for this admission?: Yes Summary: resolved (4) Abdominal pain Is this a current diagnosis for this admission?: Yes (5) Bipolar disorder Is this a current diagnosis for this admission?: Yes (6) CAD (coronary artery disease) Is this a current diagnosis for this admission?: Yes (7) COPD (chronic obstructive pulmonary disease) Is this a current diagnosis for this admission?: Yes (8) CVA (cerebrovascular accident) Is this a current diagnosis for this admission?: Yes Summary: H/O (9) Hyperlipidemia Is this a current diagnosis for this admission?: Yes (10) Hypertension Is this a current diagnosis for this admission?: Yes (11) Reflux esophagitis Is this a current diagnosis for this admission?: Yes - Additional Information Resuscitation Status: Full Code Discharge Diet: As Tolerated Discharge Activity: Activity As Tolerated Home Medications: Benztropine Mesylate [Benztropine Mesylate 2 mg Tablet] 2 mg PO Q12 08/29/17 Citalopram Hydrobromide [Citalopram HBr] 40 mg PO DAILY 08/29/17 Ergocalciferol (Vitamin D2) [Drisdol 50,000 unit (1.25MG) Capsule] 50,000 unit PO MO@1000 08/29/17 Gabapentin [Neurontin 300 mg Capsule] 600 mg PO Q8 08/29/17 Metformin HCl [Glucophage 500 mg Tablet] 500 mg PO BIDBS 08/29/17 Ranitidine HCl [Zantac 150 mg Tablet] 300 mg PO DAILY 08/29/17 Simvastatin [Zocor 40 mg Tablet] 40 mg PO QHS 08/29/17 Trazodone HCl [Desyrel] 300 mg PO QHS 08/29/17 Ziprasidone HCl [Geodon 40 mg Capsule] 40 mg PO Q12 08/29/17 Zolpidem Tartrate [Ambien 5 mg Tablet] 10 mg PO QHS 08/29/17 Magnesium Oxide [Mag-Ox 400 mg Tablet] 400 mg PO DAILY #30 tablet 12/06/17 Metoclopramide HCl [Reglan 10 mg Tablet] 5 mg PO ACHS #120 tablet 08/31/17 History of Present Illness History of Present Illness: AMISHA ABBOTT is a 52 year old male patient with past medical history of bipolar disorder, schizophrenia, COPD, coronary artery disease, hyperlipidemia, history of stroke 2x and tobacco dependence. He presented with several day history of watery diarrhea and associated generalized weakness and dizziness. Patient denied any sick contact or any similar illness in the family. At presentation in ER patient found to be hypoxic hypotensive with blood pressure of 70/51. He was given about 2 L of normal saline and his blood pressure started to picker tender. His labs shows creatinine of 1.99 due to prerenal azotemia. Since his blood pressure stays on the low side patient will be admitted for observation and will hydrate him further and his potential discharge in the next 24 hours. Hospital Course Hospital Course: He was admitted for IVFs. His ARB was held. His creatinine normalized. His BP improved as well. His hospital stay was uneventful. CT abdomen was unremarkable. He was instructed to follow up with his PCP, Dr Kelly before resuming losartan. Physical Exam Vital Signs: Temp Pulse Resp BP Pulse Ox 97.6 F 79 16 95/45 L 94 12/30/17 12:12 12/30/17 12:12 12/30/17 09:29 12/30/17 12:12 12/30/17 12:12 Intake & Output 12/29/17 12/30/17 12/31/17 06:59 06:59 06:59 Intake Total 200 Output Total 1050 Balance -850 Weight 53.2 kg General appearance: PRESENT: no acute distress, well-developed, well-nourished Head exam: PRESENT: atraumatic, normocephalic Eye exam: PRESENT: EOMI, PERRLA Respiratory exam: PRESENT: clear to auscultation roshan. ABSENT: rales, rhonchi, wheezes Cardiovascular exam: PRESENT: RRR. ABSENT: diastolic murmur, rubs, systolic murmur GI/Abdominal exam: PRESENT: normal bowel sounds, soft, tenderness - mild RUQ. ABSENT: distended, guarding, mass, organolmegaly, rebound Musculoskeletal exam: PRESENT: ambulatory Neurological exam: PRESENT: alert, awake, oriented to person, oriented to place , oriented to time, oriented to situation, CN II-XII grossly intact. ABSENT: motor sensory deficit Psychiatric exam: PRESENT: appropriate affect, normal mood. ABSENT: homicidal ideation, suicidal ideation Results Laboratory Results: 12/30/17 07:16 12/30/17 07:16 12/30/17 12/30/17 07:16 07:16 WBC 9.5 RBC 4.42 Hgb 11.1 L Hct 34.5 L MCV 78 L MCH 25.1 L MCHC 32.2 RDW 14.4 H Plt Count 201 Sodium 140.4 Potassium 4.3 Chloride 106 Carbon Dioxide 23 Anion Gap 11 BUN 23 H Creatinine 1.01 Est GFR ( Amer) > 60 Est GFR (Non-Af Amer) > 60 Glucose 88 Calcium 8.9 Impressions: Chest X-Ray 12/29/17 20:00 IMPRESSION: Mild basilar subsegmental atelectasis. No dense consolidation or significant effusion. Limited or Localized CT 12/29/17 20:47 IMPRESSION: NO ACUTE PROCESS IN THE ABDOMEN OR PELVIS. Qualifiers - * PATEINT BEING DISCHARGED WITH ANY OF THE FOLLOWING DIAGNOSIS?: No Plan Time Spent: Greater than 30 Minutes - 35 minutes
[2017-12-30 14:49] VITALS: BP 104/61
[2017-12-30] MEDS ORDERED: TRAZODONE HCL 50 MG TABLET PO SCH (22:00)
[2017-12-30] MEDS ORDERED: (PENDING PHARMACY ID) (Trazodone Hcl [Desyrel] 300 MG) PO SCH (22:00)
[2017-12-30] MEDS ORDERED: ZOLPIDEM TARTRATE 5 MG TABLET PO SCH (22:00)
[2017-12-30] MEDS ORDERED: SIMVASTATIN 40 MG TABLET PO SCH (22:00)
[2017-12-30] MEDS ORDERED: BENZTROPINE MESYLATE 1 MG TABLET PO SCH (22:00)
[2017-12-31] MEDS ORDERED: CITALOPRAM HYDROBROMIDE 20 MG TABLET PO SCH (10:00)
== END 2017-12-30 15:17 | disposition home or self-care (01) ==
LOC: ER 16:46 → EH 23:42 → 5 12-30 02:16
PROVIDERS: ADMIT Internal Medicine; ATTEND Internal Medicine
DX: N17.9 Acute kidney failure, unspecified (principal); I95.9 Hypotension, unspecified; R19.7 Diarrhea, unspecified; I25.10 Atherosclerotic heart disease of native coronary artery without angina pectoris; J44.9 Chronic obstructive pulmonary disease, unspecified; F31.9 Bipolar disorder, unspecified; F20.9 Schizophrenia, unspecified; E78.5 Hyperlipidemia, unspecified; I10 Essential (primary) hypertension; K21.0 Gastro-esophageal reflux disease with esophagitis; Z86.73 Personal history of transient ischemic attack (TIA), and cerebral infarction without residual deficits; F17.200 Nicotine dependence, unspecified, uncomplicated; Z79.899 Other long term (current) drug therapy
CPT/HCPCS: 93005; 99291; 96360; 96361; 36415 ×2; 87040; 87086; 82962; 85025; 85027; 85610; 80048; 80053; 81001; 84484; 82803; 83605; 71045; 76380; 93010; 97110; 97163; A9270 ×6; J1650; J7030 ×2; G8978; G8979

== ENCOUNTER 2019-02-24 10:17 | Emergency (ER) | payer MEDICARE ==
[2019-02-24] MEDS ORDERED: ACETAMINOPHEN 325 MG TABLET PO ONE (10:36)
--- NOTE | 2019-02-24 10:38 | ER Document Report ---
ED Medical Screen (RME) - General Chief Complaint: Headache Stated Complaint: HEADACHE Time Seen by Provider: 02/24/19 10:34 Primary Care Provider: BASHIR KELLY MD [Primary Care Provider] - Follow up as needed Mode of Arrival: Wheelchair Information source: Patient Notes: Patient presents with headache that started around 5:00 this morning. Patient initially stated headache with light to the left side but later in the interview reports that headache is global. Patient also reports that he is having left arm pain shortness of breath chest pain. Patient is concerned he may be having a heart attack as well as stroke. Patient does have a history of CVA x2 in the past. Patient had residual left leg weakness altered sensation and left arm weakness. Patient states that he could be having an anxiety attack as he has a history of this as well but he went to be certain he was not having a stroke or heart attack. hx: Diabetes, anxiety, bipolar COPD, GERD, CVA I have greeted and performed a rapid initial assessment of this patient. A comprehensive ED assessment and evaluation of the patient, analysis of test results and completion of the medical decision making process will be conducted by additional ED providers. TRAVEL OUTSIDE OF THE [place] IN LAST 30 DAYS: No - Related Data Allergies/Adverse Reactions: varenicline tartrate [From Chantix] Allergy (Unknown, Verified 12/29/17 16:57) Past Medical History - Social History Frequency of alcohol use: None Drug Abuse: None - Past Medical History Cardiac Medical History: Reports: Hx Coronary Artery Disease, Hx Hypercholesterolemia, Hx Hypertension Denies: Hx Congestive Heart Failure, Hx Heart Attack Pulmonary Medical History: Reports: Hx COPD, Hx Pneumonia Denies: Hx Asthma, Hx Bronchitis, Hx Tuberculosis Neurological Medical History: Reports: Hx Cerebrovascular Accident - left side effected. Denies: Hx Seizures Renal/ Medical History: Denies: Hx Benign Prostatic Hyperplasia, Hx End Stage Renal Disease, Hx Kidney Stones, Hx Peritoneal Dialysis GI Medical History: Reports: Hx Gastroesophageal Reflux Disease, Hx Ulcer. Denies: Hx Cirrhosis Musculoskeltal Medical History: Reports Hx Arthritis, Denies Hx Multiple Sclerosis Psychiatric Medical History: Reports: Hx Bipolar Disorder, Hx Depression, Hx Schizophrenia Past Surgical History: Reports: Hx Abdominal Surgery - hernia x 2 - Immunizations Hx Diphtheria, Pertussis, Tetanus Vaccination: No History of Influenza Vaccine for 06/2017 - 11/2017 Season: No Physical Exam - Vital signs Vitals: Temp Pulse Resp BP Pulse Ox 97.8 F 58 L 16 108/60 94 02/24/19 10:26 02/24/19 10:26 02/24/19 10:02/24/19 10:02/24/19 10:26 - Neurological Orientation: AAOx4 [place] Coma Scale Eye Opening: Spontaneous Sd Coma Scale Verbal: Oriented [place] Coma Scale Motor: Obeys Commands [place] Coma Scale Total: 15 Cranial nerves: No: Facial palsy, Tongue deviation Course - Vital Signs Vital signs: Temp Pulse Resp BP Pulse Ox 97.8 F 58 L 16 108/60 94 02/24/19 10:26 02/24/19 10:02/24/19 10:26 02/24/19 10:02/24/19 10:26 Doctor's Discharge - Discharge Referrals: BASHIR KELLY MD [Primary Care Provider] - Follow up as needed
--- NOTE | 2019-02-24 10:58 | RADIOLOGY REPORT (SQ) ---
EXAM DESCRIPTION: CHEST SINGLE VIEW COMPLETED DATE/TIME: 02/24/2019 10:41 am REASON FOR STUDY: SANCHES COMPARISON: None. NUMBER OF VIEWS: One view. TECHNIQUE: Single frontal radiographic view of the chest acquired. LIMITATIONS: None. FINDINGS: LUNGS AND PLEURA: No opacities, masses or pneumothorax. No pleural effusion. Attenuated bl ood vessels and flattened kolton-diaphragms. MEDIASTINUM AND HILAR STRUCTURES: No masses. Contour normal. HEART AND VASCULAR STRUCTURES: Heart normal in size. Normal vasculature. BONES: No acute findings. HARDWARE: None in the chest. OTHER: No other significant finding. IMPRESSION: COPD. NO ACUTE RADIOGRAPHIC FINDING IN THE CHEST. TECHNICAL DOCUMENTATION: JOB ID: [id number] [employer]- All Rights Reserved Reading location - IP/workstation name: [email or web address]
--- NOTE | 2019-02-24 11:16 | RADIOLOGY REPORT (SQ) ---
EXAM DESCRIPTION: CT HEAD WITHOUT COMPLETED DATE/TIME: 02/24/2019 10:54 am REASON FOR STUDY: SANCHES COMPARISON: 2017 TECHNIQUE: Axial images acquired through the brain without intravenous contrast. Images reviewed wi th bone, brain and subdural windows. Additional sagittal and coronal reconstructions were generated. Images stored on PACS. All CT scanners at this facility use dose modulation, iterative reconstruction, and/or weight based d osing when appropriate to reduce radiation dose to as low as reasonably achievable (ALARA). [facility]: Dose Right [facility]: CareDose [facility]: Dose Right [facility]: Teradose 4D [facility]: Smart Technologies RADIATION DOSE: CT Rad equipment meets quality standard of care and radiation dose reduction techniq ues were employed. CTDIvol: 53.2 mGy. DLP: 964 mGy-cm. mGy. LIMITATIONS: None. FINDINGS: VENTRICLES: Normal size and contour. CEREBRUM: No masses. No hemorrhage. No midline shift. No evidence for acute infarction. Chronic r ight thalamus lacunar infarct. Normal arana/white matter differentiation. No areas of low density in t he white matter. CEREBELLUM: No masses. No hemorrhage. No alteration of density. No evidence for acute infarction. EXTRAAXIAL SPACES: No fluid collections. No masses. ORBITS AND GLOBE: No intra- or extraconal masses. Normal contour of globe without masses. CALVARIUM: No fracture. PARANASAL SINUSES: No fluid or mucosal thickening. SOFT TISSUES: No mass or hematoma. OTHER: No other significant finding. IMPRESSION: Chronic changes. No acute finding. EVIDENCE OF ACUTE STROKE: NO. COMMENT: Quality ID # [id number]: Final reports with documentation of one or more dose reduction techniques (e.g., Automated exposure control, adjustment of the mA and/or kV according to patient size, use of iterative reconstruction technique) TECHNICAL DOCUMENTATION: JOB ID: [id number] [employer]- All Rights Reserved Reading location - IP/workstation name: [email or web address]
[2019-02-24] MEDS ORDERED: PROCHLORPERAZINE EDISYLATE INJ 10 MG/2 ML VIAL IV ONE ×2 (11:18→12:54)
[2019-02-24] MEDS ORDERED: KETOROLAC TROMETHAMINE INJ/PF 30 MG/1 ML SDV IV ONE ×2 (11:18→12:53)
[2019-02-24] MEDS ORDERED: DIPHENHYDRAMINE HCL 50 MG/ML VIAL IV ONE (11:18)
[2019-02-24] MEDS ORDERED: NORMAL SALINE 1000 ML 1,000 ML IV ONE (11:18)
[2019-02-24 11:21] LABS: ABSOLUTE EOSINOPHILS # (AUTO) 0.2 10^3/uL (0.0-0.6); ABSOLUTE LYMPHOCYTES (AUTO) 1.3 10^3/uL (0.5-4.7); ABSOLUTE MONOCYTES (AUTO) 0.6 10^3/uL (0.1-1.4); BASOPHILS % (AUTO) 0.6 % (0-2); EOSINOPHILS % (AUTO) 2.5 % (0-6); HEMATOCRIT 36.7 % (37.9-51.0); MEAN CORPUSCULAR HEMOGLOBIN 25.8 pg (27.0-33.4); MEAN CORPUSCULAR HGB CONC 32.8 g/dL (32.0-36.0); MEAN CORPUSCULAR VOLUME 79 fl (80-97); MONOCYTES % (AUTO) 7.9 % (3-13); PLATELET COUNT 195 10^3/uL (150-450); RED BLOOD COUNT 4.67 10^6/uL (4.35-5.55); TOTAL CELLS COUNTED % (AUTO) 100 %; WHITE BLOOD COUNT 7.1 10^3/uL (4.0-10.5)
--- NOTE | 2019-02-24 11:25 | ER Document Report ---
ED Headache - General Chief Complaint: Headache Stated Complaint: HEADACHE Time Seen by Provider: 02/24/19 10:34 Primary Care Provider: BASHIR KELLY MD [Primary Care Provider] - Follow up as needed Mode of Arrival: Wheelchair Information source: Patient, Emergency Med Personnel, [facility] Records Notes: This 53-year-old male patient comes emergency room complaining of a headache that has been present since he woke up at 7 AM this morning. Headache is across the back of his head and upper neck. He reports he thought drinking some coffee would help the headache but it did not help today, so he called 911. He does get these headaches frequently, states these headaches will wake him up if the pain in his left leg does not wake him up first. He has had 2 strokes, with some left-sided weakness. He does not have any new weakness at this time. The patient is not a TPA candidate. He has chronic headaches and this is no different. He has no new neurological deficits. TRAVEL OUTSIDE OF THE [place] IN LAST 30 DAYS: No - Related Data Allergies/Adverse Reactions: varenicline tartrate [From Chantix] Allergy (Unknown, Verified 12/29/17 16:57) Past Medical History - General Information source: Patient - Social History Smoking Status: Current Every Day Smoker Cigarette use (# per day): Yes Chew tobacco use (# tins/day): No Smoking Education Provided: Yes - The patient is smoking and mechanisms to try to stop were discussed Frequency of alcohol use: None Drug Abuse: None Occupation: Employed Lives with: Family Family History: Reviewed & Not Pertinent, COPD Patient has suicidal ideation: No Patient has homicidal ideation: No - Past Medical History Cardiac Medical History: Reports: Hx Coronary Artery Disease, Hx Hypercholesterolemia, Hx Hypertension Pulmonary Medical History: Reports: Hx COPD, Hx Pneumonia Neurological Medical History: Reports: Hx Cerebrovascular Accident - left side effected GI Medical History: Reports: Hx Gastroesophageal Reflux Disease, Hx Ulcer Musculoskeletal Medical History: Reports Hx Arthritis Psychiatric Medical History: Reports: Hx Bipolar Disorder, Hx Depression, Hx Schizophrenia Past Surgical History: Reports: Hx Herniorrhaphy - Hernia repair x2 - Immunizations Hx Diphtheria, Pertussis, Tetanus Vaccination: No Review of Systems - Review of Systems Constitutional: No symptoms reported EENT: No symptoms reported Cardiovascular: No symptoms reported Respiratory: No symptoms reported Gastrointestinal: No symptoms reported Genitourinary: No symptoms reported Musculoskeletal: Other - Frequent chronic pain in the left lower extremity Skin: No symptoms reported Neurological/Psychological: Headaches Physical Exam - Vital signs Vitals: Temp Pulse Resp BP Pulse Ox 97.8 F 58 L 16 108/60 94 02/24/19 10:26 02/24/19 10:26 02/24/19 10:26 02/24/19 10:26 02/24/19 10:26 Interpretation: Normal - General General appearance: Appears well In distress: None - HEENT Head: Normocephalic, Atraumatic, Tenderness - There is some tenderness at the nuchal ridge. Eyes: Normal Extraocular movements intact: Yes Pupils: PERRL Neck: Supple, Other - Sure cervical muscles are quite tender to palpate starting at the nuchal ridge and extending down into the trapezius muscles.. No: Carotid bruit - Respiratory Respiratory status: No respiratory distress Chest status: Nontender Breath sounds: Normal - Cardiovascular Rhythm: Regular Heart sounds: Normal auscultation Murmur: No - Abdominal Inspection: Normal Distension: No distension Tenderness: Nontender - Back Back: Tender - There is some mild tenderness to the paravertebral lumbar and thoracic muscles. - Extremities General upper extremity: Normal inspection General lower extremity: Normal inspection - Neurological Neuro grossly intact: Yes - There seems to be a very slight weakness noted to the left lower extremity - Psychological Associated symptoms: Normal affect, Normal mood Course - Vital Signs Vital signs: Temp Pulse Resp BP Pulse Ox 97.8 F 58 L 12 134/75 H 97 02/24/19 10:26 02/24/19 10:26 02/24/19 13:01 02/24/19 13:01 02/24/19 13:01 - Laboratory Result Diagrams: 02/24/19 10:58 02/24/19 10:58 Laboratory results interpreted by me: 02/24/19 02/24/19 02/24/19 10:58 10:58 10:58 Hgb 12.0 L Hct 36.7 L MCV 79 L MCH 25.8 L APTT 53.1 H BUN 21 H AST 15 L ALT 14 L Creatine Kinase 31 L - Diagnostic Test Radiology reviewed: Image reviewed, Reports reviewed - CT scan of the head shows chronic changes nothing acute. Chest x-ray shows COPD with flattened diaphragms. - EKG Interpretation by Mi EKG shows normal: Sinus rhythm, [place], Intervals, QRS Complexes, ST-T Waves Rate: Bradycardia - 47 When compared to previous EKG there are: No significant change Discharge - Discharge Clinical Impression: Muscle tension headache Condition: Stable Disposition: HOME, SELF-CARE Additional Instructions: Tension Headache Your problem has been diagnosed as muscle tension headache. This very co mmon type of headache occurs because of tightness in the muscles of the head and neck. The cause may be neck or jaw joint problems, but most commonly the cause is emotional stress. The headache may last hours or days. The treatment of uncomplicated tension headaches is rest and pain medicatio n. Often, the newer antiinflammatory pain medications are prescribed, as these also decrease the irritability of the painful tissues. Muscle relaxers, cold packs, or warm packs are sometimes helpful. Anti-anxiety medication or narcotics are sometimes needed temporarily, but are best avoided in the long run. Your doctor has evaluated your headache problem, and finds no evidence of a serious health problem as a cause for the headache. If your headache becomes more severe, or if new symptoms develop (such as fever, stiff neck, vomiting, or decreasing alertness) you should be re-examined by the physician. Follow-up with Dr. Kelly Tuesday if not improving. RETURN TO THE EMERGENCY ROOM IF ANY NEW OR WORSENING SYMPTOMS. Referrals: BASHIR KELLY MD [Primary Care Provider] - Follow up as needed
[2019-02-24 11:27] LABS: INTERNATIONAL RATION (INR) 1.03
[2019-02-24 11:29] LABS: PARTIAL THROMBOPLASTIN TIME 53.1 SEC (23.5-35.8)
[2019-02-24 11:41] LABS: ALANINE AMINOTRANSFERASE 14 U/L (21-72); ALBUMIN 4.3 g/dL (3.5-5.0); ALKALINE PHOSPHATASE 69 U/L (38-126); ANION GAP 13 (5-19); ASPARTATE AMINO TRANSFERASE 15 U/L (17-59); BILIRUBIN,DIRECT 0.3 mg/dL (0.0-0.4); BILIRUBIN,TOTAL 0.4 mg/dL (0.2-1.3); BLOOD UREA NITROGEN 21 mg/dL (7-20); CARBON DIOXIDE 25 mmol/L (22-30); CHLORIDE 105 mmol/L (98-107); CREATINE KINASE 31 U/L (55-170); GLUCOSE 82 mg/dL (75-110); POTASSIUM 4.6 mmol/L (3.6-5.0); SODIUM 142.6 mmol/L (137-145); TOTAL PROTEIN 7.3 g/dL (6.3-8.2)
[2019-02-24 11:54] LABS: CREATINE KINASE MB < 0.22 ng/mL (<4.55); TROPONIN I < 0.012 ng/mL
[2019-02-24] MEDS ORDERED: FENTANYL CITRATE INJ/PF 100 MCG/2 ML AMPUL IV ONE (12:54)
[2019-02-24 14:42] VITALS: BP 134/79
--- NOTE | 2019-02-24 23:42 | EKG REPORT ---
SEVERITY:- OTHERWISE NORMAL ECG - SINUS BRADYCARDIA : Confirmed by: Carla Downs MD 24-Feb-2019 23:41:33
== END 2019-02-24 14:43 | disposition home or self-care (01) ==
LOC: ER 10:17
DX: G44.209 Tension-type headache, unspecified, not intractable (principal); M54.2 Cervicalgia; F17.210 Nicotine dependence, cigarettes, uncomplicated; I25.10 Atherosclerotic heart disease of native coronary artery without angina pectoris; E78.00 Pure hypercholesterolemia, unspecified; I10 Essential (primary) hypertension; I69.954 Hemiplegia and hemiparesis following unspecified cerebrovascular disease affecting left non-dominant side
CPT/HCPCS: 93005; 96376; 99285; 96361; 96374; 96375; 36415; 82553; 82550; 85025; 85610; 85730; 80053; 84484; 71045; 70450; 93010; A9270; J1200; J3010; J1885; J0780; J7030

== ENCOUNTER 2019-03-09 20:14 | Emergency (ER) | payer MEDICARE ==
[2019-03-09 20:31] VITALS: BP 108/66
== END 2019-03-09 20:50 | disposition left against medical advice (07) ==
LOC: ER 20:14
DX: Z53.21 Procedure and treatment not carried out due to patient leaving prior to being seen by health care provider (principal)

== ENCOUNTER 2019-07-30 10:40 | Emergency (ER) | payer MEDICARE ==
--- NOTE | 2019-07-30 10:58 | ER Document Report ---
ED General - General Stated Complaint: ALTERED MENTAL STATUS Time Seen by Provider: 07/30/19 10:49 Primary Care Provider: BASHIR KELLY MD [Primary Care Provider] - Follow up as needed Notes: HPI: 53-year-old male with past medical history as recorded including 2 strokes with some baseline left-sided deficits who presents with EMS secondary to home health stating around 925 he started to feel "a little weak" and had some "garbled speech". Supposedly no fevers, vomiting, diarrhea, or trauma. Patient himself denies any and all symptomatology including weakness or pain. He is oriented to person and place. ROS: See HPI All other review of systems reviewed and otherwise negative Reviewed vital signs and nursing note as charted by RN. PHYSICAL EXAM: CONSTITUTIONAL: Alert and oriented and responds appropriately to questions. Patient follows all commands HEAD: Normocephalic; atraumatic EYES: PERRL; Conjunctivae clear, sclerae non-icteric ENT: Normal nose; no rhinorrhea; moist mucous membranes; pharynx without lesions noted NECK: Supple without meningismus; non-tender; no cervical lymphadenopathy, no masses CARD: Regular rate and rhythm; no murmurs; symmetric distal pulses RESP: Normal chest excursion without splinting or tachypnea; breath sounds clear and equal bilaterally ABD/GI: Normal bowel sounds; non-distended; soft, non-tender; no palpable organomegaly or masses BACK: The back appears normal and is non-tender to palpation EXT: Normal ROM in all joints; non-tender to palpation; no edema SKIN: No acute lesions noted NEURO: CN 2-12 intact; slightly garbled speech at a very low tone; 5/5 bilateral upper and lower extremity strength with sensation intact to light touch PSYCH: The patient's mood and manner are appropriate. Grooming and personal hygiene are appropriate. TRAVEL OUTSIDE OF THE [place] IN LAST 30 DAYS: No - Related Data Allergies/Adverse Reactions: varenicline tartrate [From Chantix] Allergy (Unknown, Verified 03/09/19 20:17) amoxicillin Allergy (Verified 07/30/19 11:34) Penicillins Allergy (Verified 07/30/19 11:34) Past Medical History - Social History Smoking Status: Unknown if Ever Smoked Family History: Reviewed & Not Pertinent, COPD - Past Medical History Cardiac Medical History: Reports: Hx Coronary Artery Disease, Hx Hypercholesterolemia, Hx Hypertension Denies: Hx Congestive Heart Failure, Hx Heart Attack Pulmonary Medical History: Reports: Hx COPD, Hx Pneumonia Denies: Hx Asthma, Hx Bronchitis, Hx Tuberculosis Neurological Medical History: Reports: Hx Cerebrovascular Accident - left side effected. Denies: Hx Seizures, Hx Parkinson's Disease Renal/ Medical History: Denies: Hx Benign Prostatic Hyperplasia, Hx End Stage Renal Disease, Hx Kidney Stones, Hx Peritoneal Dialysis GI Medical History: Reports: Hx Gastroesophageal Reflux Disease, Hx Ulcer. Denies: Hx Cirrhosis Musculoskeletal Medical History: Reports Hx Arthritis, Denies Hx Multiple Sclerosis Psychiatric Medical History: Reports: Hx Bipolar Disorder, Hx Depression, Hx Schizophrenia Past Surgical History: Reports: Hx Abdominal Surgery - hernia x 2, Hx Herniorrhaphy - Hernia repair x2 - Immunizations Hx Diphtheria, Pertussis, Tetanus Vaccination: No Physical Exam - Vital signs Vitals: Pulse Ox 96 07/30/19 10:55 Course - Re-evaluation Re-evalutation: Onset of possibly garbled speech at around 9:25 AM according to EMS. Accu-Chek and vital signs as recorded. Code stroke was activated. 07/30/19 10:55 NIH score is a 1 secondary only to some garbled speech. Van score negative. I do not believe that the patient is a TPA candidate at this moment. 07/30/19 11:36 CT scan of the head is unremarkable. Labs are pending. No change in exam. 07/30/19 12:05 EKG shows a heart of 52, normal sinus rhythm, normal axis, no ST elevation or depression 07/30/19 12:20 On repeat exam, patient now appears to have 3 out of 5 strength to the left leg with possibly some left-sided ptosis and left facial droop. VAN score is still negative with no neglect or facial drooping. Given the waxing and waning symptomatology with previous strokes, blood pressure stable, INR is recorded, platelet level as recorded, no history of intracranial mass, with family at bedside corroborating the story, weight at the 3-hour window, I have called the neurologist over at [facility] to discuss the case. I have also ordered a CTA head and neck to evaluate for the possibility of large vessel occlusion. 07/30/19 12:36 I spoke with the neurologist Dr. Hartley regarding the patient's waxing and waning symptomatology with history. I have explained the full history and physical. He does believe that the patient would be a TPA candidate with the waxing and waning symptoms even though it is been 3 hours and 10 minutes. I wood zayas explained the risks and benefits to the patient and family and they are in agreement. 07/30/19 12:56 The patient's power of claims attorney is her daughter at [phone]. - Vital Signs Vital signs: Temp Pulse Resp BP Pulse Ox 58 L 17 131/77 H 96 07/30/19 11:30 07/30/19 11:30 07/30/19 11:30 07/30/19 11:30 - Laboratory Result Diagrams: 07/30/19 11:29 07/30/19 11:29 Laboratory results interpreted by me: 07/30/19 07/30/19 07/30/19 11:29 11:29 11:29 Hgb 11.7 L Hct 36.0 L MCV 79 L MCH 25.7 L RDW 14.4 H APTT 48.9 H AST 15 L Creatine Kinase 28 L Critical Care Note - Critical Care Note Total time excluding time spent on procedures (mins): 35 Discharge - Discharge Clinical Impression: Slurred speech, Left leg weakness Condition: Serious Disposition: [facility] Referrals: BASHIR KELLY MD [Primary Care Provider] - Follow up as needed
--- NOTE | 2019-07-30 11:31 | RADIOLOGY REPORT (SQ) ---
EXAM DESCRIPTION: CT HEAD WITHOUT COMPLETED DATE/TIME: 07/30/2019 11:13 am REASON FOR STUDY: stroke COMPARISON: 02/24/2019 TECHNIQUE: Axial images acquired through the brain without intravenous contrast. Images reviewed wi th bone, brain and subdural windows. Additional sagittal and coronal reconstructions were generated. Images stored on PACS. All CT scanners at this facility use dose modulation, iterative reconstruction, and/or weight based d osing when appropriate to reduce radiation dose to as low as reasonably achievable (ALARA). [facility]: Dose Right [facility]: CareDose [facility]: Dose Right [facility]: Teradose 4D [facility]: [facility]ARE RADIATION DOSE: 990 mGy cm LIMITATIONS: None. FINDINGS: VENTRICLES: Normal size and contour. CEREBRUM: No masses. No hemorrhage. No midline shift. No evidence for acute infarction. Normal gra y/white matter differentiation. No areas of low density in the white matter. CEREBELLUM: No masses. No hemorrhage. No alteration of density. No evidence for acute infarction. EXTRAAXIAL SPACES: No fluid collections. No masses. ORBITS AND GLOBE: No intra- or extraconal masses. Normal contour of globe without masses. CALVARIUM: No fracture. PARANASAL SINUSES: No fluid or mucosal thickening. SOFT TISSUES: No mass or hematoma. OTHER: No other significant finding. IMPRESSION: No acute intracranial pathology. No CT evidence of acute stroke or hemorrhage. EVIDENCE OF ACUTE STROKE: NO. Findings reported to the emergency department by the [facility] critical findings reporting system at the [facility]. COMMENT: Quality ID # [id number]: Final reports with documentation of one or more dose reduction techniques (e.g., Automated exposure control, adjustment of the mA and/or kV according to patient size, use of iterative reconstruction technique) TECHNICAL DOCUMENTATION: JOB ID: [id number] [employer]- All Rights Reserved Reading location - IP/workstation name: [email or web address]
[2019-07-30 11:50] LABS: ABSOLUTE EOSINOPHILS # (AUTO) 0.1 10^3/uL (0.0-0.6); ABSOLUTE LYMPHOCYTES (AUTO) 1.2 10^3/uL (0.5-4.7); ABSOLUTE MONOCYTES (AUTO) 0.7 10^3/uL (0.1-1.4); ABSOLUTE NEUT (AUTO) 5.7 10^3/uL (1.7-8.2); BASOPHILS % (AUTO) 0.4 % (0-2); EOSINOPHILS % (AUTO) 1.4 % (0-6); HEMOGLOBIN 11.7 g/dL (13.5-17.0); LYMPHOCYTES % (AUTO) 15.5 % (13-45); MEAN CORPUSCULAR HEMOGLOBIN 25.7 pg (27.0-33.4); MEAN CORPUSCULAR HGB CONC 32.5 g/dL (32.0-36.0); MEAN CORPUSCULAR VOLUME 79 fl (80-97); MONOCYTES % (AUTO) 9.1 % (3-13); PLATELET COUNT 209 10^3/uL (150-450); RED BLOOD COUNT 4.55 10^6/uL (4.35-5.55); RED CELL DISTRIBUTION WIDTH 14.4 % (11.5-14.0); SEGMENTED NEUTROPHILS % (AUTO) 73.6 % (42-78); TOTAL CELLS COUNTED % (AUTO) 100 %; WHITE BLOOD COUNT 7.7 10^3/uL (4.0-10.5)
[2019-07-30 11:52] LABS: PARTIAL THROMBOPLASTIN TIME 48.9 SEC (23.5-35.8)
[2019-07-30 11:54] LABS: PROTHROMBIN TIME 14.2 SEC (11.4-15.4)
--- NOTE | 2019-07-30 11:56 | RADIOLOGY REPORT (SQ) ---
EXAM DESCRIPTION: CHEST SINGLE VIEW COMPLETED DATE/TIME: 07/30/2019 11:33 am REASON FOR STUDY: stroke COMPARISON: 02/24/2019 EXAM PARAMETERS: NUMBER OF VIEWS: One view. TECHNIQUE: Single frontal radiographic view of the chest acquired. RADIATION DOSE: NA LIMITATIONS: None. FINDINGS: LUNGS AND PLEURA: Mild interstitial changes seen in the lung bases. No infiltrate or pleu ral effusion. No pulmonary mass. MEDIASTINUM AND HILAR STRUCTURES: No masses. Contour normal. HEART AND VASCULAR STRUCTURES: Heart normal in size. Normal vasculature. BONES: No acute findings. HARDWARE: None in the chest. OTHER: No other significant finding. IMPRESSION: Mild chronic lung changes with no acute cardiopulmonary findings. TECHNICAL DOCUMENTATION: JOB ID: [id number] [employer]- All Rights Reserved Reading location - IP/workstation name: [email or web address]
[2019-07-30 12:11] LABS: ALBUMIN 3.9 g/dL (3.5-5.0); ALKALINE PHOSPHATASE 70 U/L (38-126); ANION GAP 9 (5-19); ASPARTATE AMINO TRANSFERASE 15 U/L (17-59); BILIRUBIN,DIRECT 0.1 mg/dL (0.0-0.4); BILIRUBIN,TOTAL 0.4 mg/dL (0.2-1.3); BLOOD UREA NITROGEN 15 mg/dL (7-20); CALCIUM 9.7 mg/dL (8.4-10.2); CARBON DIOXIDE 26 mmol/L (22-30); CHLORIDE 105 mmol/L (98-107); CREATINE KINASE 28 U/L (55-170); GLUCOSE 84 mg/dL (75-110); POTASSIUM 4.4 mmol/L (3.6-5.0)
[2019-07-30 12:26] LABS: CREATINE KINASE MB < 0.22 ng/mL (<4.55); TROPONIN I < 0.012 ng/mL
[2019-07-30] MEDS ORDERED: ALTEPLASE INJ 100 MG VIAL IV ONE ×2 (12:39→12:40)
[2019-07-30] MEDS ORDERED: ALTEPLASE INJ 100 MG VIAL ONE (12:42)
[2019-07-30 13:13] VITALS: BP 143/69
--- NOTE | 2019-07-31 09:35 | EKG REPORT ---
SEVERITY:- NORMAL ECG - SINUS RHYTHM : Confirmed by: Kenna Carlson 31-Jul-2019 09:35:00
== END 2019-07-30 13:17 | disposition short-term general hospital (02) ==
LOC: ER 10:40
DX: R47.81 Slurred speech (principal); R53.1 Weakness; I25.10 Atherosclerotic heart disease of native coronary artery without angina pectoris; I10 Essential (primary) hypertension; J44.9 Chronic obstructive pulmonary disease, unspecified; Z86.73 Personal history of transient ischemic attack (TIA), and cerebral infarction without residual deficits; Z88.8 Allergy status to other drugs, medicaments and biological substances; Z88.0 Allergy status to penicillin
CPT/HCPCS: 93005; 36415; 82553; 82962; 82550; 85025; 85610; 85730; 80053; 84484; 71045; 70450; 93010; J2997; 96365; 99291

== ENCOUNTER 2019-11-28 15:43 | Inpatient (IN) | payer MEDICARE ==
--- NOTE | 2019-11-28 16:10 | ER Document Report ---
ED Medical Screen (RME) - General Chief Complaint: S/S of Possible Stroke Stated Complaint: POSSIBLE STROKE Time Seen by Provider: 11/28/19 16:05 Primary Care Provider: BASHIR KELLY MD [Primary Care Provider] - Follow up as needed Mode of Arrival: Ambulatory Information source: Patient Notes: 54-year-old male presented to ED for complaint of pain and weakness to the left arm and leg since this morning before he went to his mental health provider appointment. He stopped he states he told his mental health provider that he was having the weakness and pain in the left leg and arm and face and they told him to come to the emergency room. The patient states that the daughter took him home and was going to take him to the primary care doctor but she called the primary care doctor and they told her to bring him to the emergency room not to the primary care doctor. He came to emergency room around 4:00. Patient has now had the pain and weakness since 9:30 in the morning and it is 4 oh 8 in the afternoon. We will get a head CT and blood work at this time. Patient is on blood thinners and his daughter is parking the car at this time. I have greeted and performed a rapid initial assessment of this patient. A comprehensive ED assessment and evaluation of the patient, analysis of test results and completion of medical decision making process will be conducted by an additional ED providers. TRAVEL OUTSIDE OF THE [place] IN LAST 30 DAYS: No - Related Data Allergies/Adverse Reactions: varenicline tartrate [From Chantix] Allergy (Unknown, Verified 03/09/19 20:17) amoxicillin Allergy (Verified 07/30/19 11:34) Penicillins Allergy (Verified 07/30/19 11:34) Past Medical History - Past Medical History Cardiac Medical History: Reports: Hx Coronary Artery Disease, Hx Hypercholesterolemia, Hx Hypertension Denies: Hx Congestive Heart Failure, Hx Heart Attack Pulmonary Medical History: Reports: Hx COPD, Hx Pneumonia Denies: Hx Asthma, Hx Bronchitis, Hx Tuberculosis Neurological Medical History: Reports: Hx Cerebrovascular Accident - left side effected. Denies: Hx Seizures, Hx Parkinson's Disease Renal/ Medical History: Denies: Hx Benign Prostatic Hyperplasia, Hx End Stage Renal Disease, Hx Kidney Stones, Hx Peritoneal Dialysis GI Medical History: Reports: Hx Gastroesophageal Reflux Disease, Hx Ulcer. Denies: Hx Cirrhosis Musculoskeltal Medical History: Reports Hx Arthritis, Denies Hx Multiple Sclerosis Psychiatric Medical History: Reports: Hx Bipolar Disorder, Hx Depression, Hx Schizophrenia Past Surgical History: Reports: Hx Abdominal Surgery - hernia x 2, Hx Herniorrhaphy - Hernia repair x2 - Immunizations Hx Diphtheria, Pertussis, Tetanus Vaccination: No Physical Exam - Vital signs Vitals: Temp Pulse Resp BP Pulse Ox 97.6 F 61 16 136/75 H 99 11/28/19 15:56 11/28/19 15:56 11/28/19 15:56 11/28/19 15:56 11/28/19 15:56 Course - Vital Signs Vital signs: Temp Pulse Resp BP Pulse Ox 97.6 F 61 16 136/75 H 99 11/28/19 15:56 11/28/19 15:56 11/28/19 15:56 11/28/19 15:56 11/28/19 15:56 Doctor's Discharge - Discharge Referrals: BASHIR KELLY MD [Primary Care Provider] - Follow up as needed
[2019-11-28 16:47] LABS: INTERNATIONAL RATION (INR) 1.08
[2019-11-28 16:48] LABS: ABSOLUTE BASOPHILS # (AUTO) 0.1 10^3/uL (0.0-0.2); ABSOLUTE EOSINOPHILS # (AUTO) 0.2 10^3/uL (0.0-0.6); ABSOLUTE LYMPHOCYTES (AUTO) 1.7 10^3/uL (0.5-4.7); ABSOLUTE MONOCYTES (AUTO) 0.7 10^3/uL (0.1-1.4); ABSOLUTE NEUT (AUTO) 4.1 10^3/uL (1.7-8.2); BASOPHILS % (AUTO) 0.9 % (0-2); EOSINOPHILS % (AUTO) 2.9 % (0-6); HEMATOCRIT 37.8 % (37.9-51.0); HEMOGLOBIN 12.5 g/dL (13.5-17.0); LYMPHOCYTES % (AUTO) 24.8 % (13-45); MEAN CORPUSCULAR HEMOGLOBIN 25.8 pg (27.0-33.4); MEAN CORPUSCULAR HGB CONC 33.2 g/dL (32.0-36.0); MEAN CORPUSCULAR VOLUME 78 fl (80-97); MONOCYTES % (AUTO) 10.5 % (3-13); PARTIAL THROMBOPLASTIN TIME 47.8 SEC (23.5-35.8); PLATELET COUNT 193 10^3/uL (150-450); RED BLOOD COUNT 4.86 10^6/uL (4.35-5.55); RED CELL DISTRIBUTION WIDTH 14.6 % (11.5-14.0); SEGMENTED NEUTROPHILS % (AUTO) 60.9 % (42-78); TOTAL CELLS COUNTED % (AUTO) 100 %; WHITE BLOOD COUNT 6.7 10^3/uL (4.0-10.5)
--- NOTE | 2019-11-28 17:01 | RADIOLOGY REPORT (SQ) ---
EXAM DESCRIPTION: CT HEAD WITHOUT COMPLETED DATE/TIME: 11/28/2019 4:42 pm REASON FOR STUDY: left sided weakness since 929 COMPARISON: CT of the head without contrast from 07/30/2019 TECHNIQUE: Axial images acquired through the brain without intravenous contrast. Images reviewed wi th bone, brain and subdural windows. Additional sagittal and coronal reconstructions were generated. Images stored on PACS. All CT scanners at this facility use dose modulation, iterative reconstruction, and/or weight based d osing when appropriate to reduce radiation dose to as low as reasonably achievable (ALARA). [facility]: Dose Right [facility]: CareDose [facility]: Dose Right [facility]: Teradose 4D [facility]: [employer] RADIATION DOSE: CT Rad equipment meets quality standard of care and radiation dose reduction techniq ues were employed. CTDIvol: 53.2 mGy. DLP: 964 mGy-cm. LIMITATIONS: None. FINDINGS: There is no acute intracranial hemorrhage, vascular territorial infarct, extra-axial fluid collection, mass effect or midline shift. The arana-white matter differentiation is preserved. There is no effacement of the cerebral sulci or basal subarachnoid cisterns. The caliber the ventricles is concordant with the degree of sulcation. The orbits and globes are intact. The paranasal sinuses are clear. There is no fracture of the calv arium. IMPRESSION: No acute intracranial abnormality. EVIDENCE OF ACUTE STROKE: NO. COMMENT: Quality ID # [id number]: Final reports with documentation of one or more dose reduction techniques (e.g., Automated exposure control, adjustment of the mA and/or kV according to patient size, use of iterative reconstruction technique) TECHNICAL DOCUMENTATION: JOB ID: [id number] 2010 [employer]- All Rights Reserved Reading location - IP/workstation name: [email or web address]
[2019-11-28 17:09] LABS: ALBUMIN 4.2 g/dL (3.5-5.0); ALKALINE PHOSPHATASE 65 U/L (38-126); ANION GAP 10 (5-19); ASPARTATE AMINO TRANSFERASE 18 U/L (17-59); BILIRUBIN,DIRECT 0.3 mg/dL (0.0-0.4); BILIRUBIN,TOTAL 0.5 mg/dL (0.2-1.3); BLOOD UREA NITROGEN 17 mg/dL (7-20); CALCIUM 9.9 mg/dL (8.4-10.2); CARBON DIOXIDE 29 mmol/L (22-30); CHLORIDE 102 mmol/L (98-107); GLUCOSE 87 mg/dL (75-110); POTASSIUM 4.5 mmol/L (3.6-5.0); TOTAL PROTEIN 7.6 g/dL (6.3-8.2)
--- NOTE | 2019-11-28 18:11 | RADIOLOGY REPORT (SQ) ---
EXAM DESCRIPTION: CHEST 2 VIEWS COMPLETED DATE/TIME: 11/28/2019 5:40 pm REASON FOR STUDY: numbness/ting COMPARISON: 07/30/2019 EXAM PARAMETERS: NUMBER OF VIEWS: two views TECHNIQUE: Digital Frontal and Lateral radiographic views of the chest acquired. RADIATION DOSE: NA LIMITATIONS: none FINDINGS: LUNGS AND PLEURA: Hyperexpansion of the lungs. No infiltrate, effusion, or mass. MEDIASTINUM AND HILAR STRUCTURES: No masses or contour abnormalities. HEART AND VASCULAR STRUCTURES: Heart normal size. No evidence for failure. BONES: No acute findings. HARDWARE: None in the chest. OTHER: No other significant finding. IMPRESSION: Chronic lung changes with no acute cardiopulmonary finding. TECHNICAL DOCUMENTATION: JOB ID: [id number] 2010 [employer]- All Rights Reserved Reading location - IP/workstation name: [email or web address]
--- NOTE | 2019-11-28 18:38 | EKG REPORT ---
SEVERITY:- NORMAL ECG - SINUS RHYTHM : Confirmed by: William Pacheco MD 28-Nov-2019 18:37:15
[2019-11-28] MEDS ORDERED: ASPIRIN 81 MG TABLET, CHEWABLE PO ONE (20:02)
--- NOTE | 2019-11-28 20:54 | ER Document Report ---
ED General - General Chief Complaint: S/S of Possible Stroke Stated Complaint: POSSIBLE STROKE Time Seen by Provider: 11/28/19 16:05 Primary Care Provider: BASHIR KELLY MD [Primary Care Provider] - Follow up as needed Mode of Arrival: Ambulatory Information source: Patient, Relative Notes: Patient is a 54-year-old male presenting to the emergency department chief complaint of possible stroke. When speaking to the patient he said that the symptoms started about 830 this morning. He states that he was having difficulty with speech. Patient was taken to his mental health appointment by family and they stated that they did not realize that he had slurred speech and facial droop until they were there. At that point it was recommended that they either go to their primary care provider or the emergency department. On presentation to the emergency department the patient was still having difficulty with speech and left-sided facial droop. Patient denies any travel history trauma history sick contacts. Patient states that he has had 2 prior strokes. Patient is diabetic use does smoke tobacco. Patient states he has been taking his medications as prescribed. At time of evaluation patient is able to answer questions does have mild slurring to his speech and obvious left-sided facial droop that is confirmed new per family member. TRAVEL OUTSIDE OF THE [place] IN LAST 30 DAYS: No - HPI Onset: This morning Onset/Duration: Persistent Quality of pain: No pain Severity: None Pain Level: Denies Associated symptoms: Slow to respond Exacerbated by: Denies Relieved by: Denies Similar symptoms previously: Yes Recently seen / treated by doctor: Yes - Related Data Allergies/Adverse Reactions: varenicline tartrate [From Chantix] Allergy (Unknown, Verified 11/28/19 16:09) amoxicillin Allergy (Verified 11/28/19 16:09) Penicillins Allergy (Verified 11/28/19 16:09) Home Medications: blood thinners Past Medical History - General Information source: Patient, Relative - Social History Smoking Status: Current Every Day Smoker Chew tobacco use (# tins/day): No Smoking Education Provided: Yes Frequency of alcohol use: None Drug Abuse: None Lives with: Family Family History: Reviewed & Not Pertinent, COPD Patient has suicidal ideation: No Patient has homicidal ideation: No - Past Medical History Cardiac Medical History: Reports: Hx Coronary Artery Disease, Hx Hypercholesterolemia, Hx Hypertension Denies: Hx Congestive Heart Failure, Hx Heart Attack Pulmonary Medical History: Reports: Hx COPD, Hx Pneumonia Denies: Hx Asthma, Hx Bronchitis, Hx Tuberculosis Neurological Medical History: Reports: Hx Cerebrovascular Accident - left side effected. Denies: Hx Seizures, Hx Parkinson's Disease Renal/ Medical History: Denies: Hx Benign Prostatic Hyperplasia, Hx End Stage Renal Disease, Hx Kidney Stones, Hx Peritoneal Dialysis GI Medical History: Reports: Hx Gastroesophageal Reflux Disease, Hx Ulcer. Denies: Hx Cirrhosis Musculoskeletal Medical History: Reports Hx Arthritis, Denies Hx Multiple Sclerosis Psychiatric Medical History: Reports: Hx Bipolar Disorder, Hx Depression, Hx Schizophrenia Past Surgical History: Reports: Hx Abdominal Surgery - hernia x 2, Hx Herniorrhaphy - Hernia repair x2 - Immunizations Hx Diphtheria, Pertussis, Tetanus Vaccination: No Review of Systems - Review of Systems Notes: REVIEW OF SYSTEMS: CONSTITUTIONAL : Denies fever, chills, or sweats. Denies recent illness. EENT: Denies eye, ear, throat, or mouth pain or symptoms. Denies nasal or sinus congestion. CARDIOVASCULAR: Denies chest pain. RESPIRATORY: Denies cough, cold, or chest congestion. Denies shortness of breath, difficulty breathing, or wheezing. GASTROINTESTINAL: Denies abdominal pain. Denies nausea, vomiting, or diarrhea. Denies constipation. GENITOURINARY: Denies difficulty urinating, painful urination, burning, frequency, or blood in urine. MUSCULOSKELETAL: Denies neck or back pain or joint pain or swelling. SKIN: Denies rash or skin lesions. HEMATOLOGIC : Denies easy bruising or bleeding. NEUROLOGICAL: Per HPI PSYCHIATRIC: Denies suicidal or homicidal ideations 10 Systems are negative unless otherwise specified above Physical Exam - Vital signs Vitals: Pulse Resp BP Pulse Ox 53 L 15 135/81 H 99 11/28/19 15:44 11/28/19 15:44 11/28/19 15:44 11/28/19 15:44 - Notes Notes: PHYSICAL EXAMINATION: GENERAL: Well-appearing, well-nourished and in no acute distress. HEAD: Atraumatic, normocephalic. EYES: Pupils equal round and reactive to light, extraocular movements intact, sclera anicteric, conjunctiva are normal. ENT: nares patent, oropharynx clear without exudates. Dry mucous membranes. NECK: Normal range of motion, supple without lymphadenopathy, no appreciable JVD LUNGS: Lungs clear to auscultation bilaterally and equal. No wheezes rales or rhonchi. HEART: Bradycardic rate and rhythm without murmurs ABDOMEN: Soft, nontender, normal bowel sounds. No guarding, no rebound. No masses appreciated. EXTREMITIES: Active full range of motion, no pitting or edema. No cyanosis. 2+ pulses x4, there is weakness to the left lower extremity however patient and family state this is secondary to previous stroke NEUROLOGICAL: At time of evaluation patient is alert and oriented x3 there is persistent left-sided facial droop however patient answers questions appropriately follows commands appropriately there is no obvious pronator drift. Sd Coma Scale of 15 cranial nerves II through XII are otherwise appropriate except for facial droop and mild slurring to speech. Patient was not ambulated at this time but did have sensation bilaterally to lower extremities. SKIN: Warm, Dry, and intact. Normal turgor, no rashes or lesions noted. Course - Re-evaluation Re-evalutation: 11/28/19 20:55 Patient has been maintained on a school bus monitor while in the emergency department. Patient has remained stable without decompensation. I have discussed the EKG laboratory and radiologic findings with the patient patient is given aspirin per stroke protocol. Please see nurses notes for stroke scale. I have spoken to the hospitalist they are agreeable with admission and probable ne urology consult tomorrow. - Vital Signs Vital signs: Temp Pulse Resp BP Pulse Ox 97.6 F 61 16 143/87 H 97 11/28/19 15:56 11/28/19 15:56 11/28/19 19:01 11/28/19 19:01 11/28/19 19:01 - Laboratory Result Diagrams: 11/28/19 16:18 11/28/19 16:18 Laboratory results interpreted by me: 11/28/19 11/28/19 16:18 16:18 Hgb 12.5 L Hct 37.8 L MCV 78 L MCH 25.8 L RDW 14.6 H APTT 47.8 H - Diagnostic Test Radiology reviewed: Reports reviewed - EKG Interpretation by Ga EKG shows normal: Sinus rhythm Rate: Bradycardia Rhythm: NSR When compared to previous EKG there are: Previous EKG unavailable Additional EKG results interpreted by me: 11/28/19 20:54 EKG demonstrates sinus rhythm 51 bpm there is no ST elevation no axis deviation no ectopy no old EKG for comparison. Discharge - Discharge Clinical Impression: CVA (cerebral vascular accident) Qualifiers: CVA mechanism: unspecified Qualified Code(s): I63.9 - Cerebral infarction, unspecified Condition: Stable Disposition: ADMITTED OBSERVATION Admitting Provider: Elias (Hospitalist) Unit Admitted: Telemetry Referrals: BASHIR KELLY MD [Primary Care Provider] - Follow up as needed
[2019-11-28] MEDS ORDERED: ONDANSETRON 4 MG TAB.RAPDIS PO PRN (21:55)
[2019-11-28] MEDS ORDERED: ACETAMINOPHEN 325 MG TABLET PO PRN (21:55)
[2019-11-28] MEDS ORDERED: ONDANSETRON HCL INJ/PF 4 MG/2 ML SDV IV PRN (21:55)
[2019-11-28] MEDS ORDERED: DOCUSATE SODIUM 100 MG CAPSULE PO PRN (21:55)
[2019-11-28] MEDS ORDERED: ATORVASTATIN CALCIUM 40 MG TABLET PO SCH (22:00)
--- NOTE | 2019-11-28 22:12 | PDOC H&P ---
History of Present Illness Admission Date/PCP: 11/28/19 21:09 BASHIR KELLY History of Present Illness: AMISHA ABBOTT is a 54 year old male with past medical history of previous CVA events, TIA, T2 DM, HTN, HLD, COPD, CAD, bipolar disorder who presented to ED with complaints of LUE weakness worse than baseline weakness from previous stroke, dysarthria, word finding difficulty, slurred speech. Patient states the symptoms are consistent with his previous CVAs. He states he takes 81 mg aspirin daily which was given to him by his daughter and endorses full compliance with this. He states he takes all his medications that are given to him by his daughter. He was not a candidate for TPA as his symptoms began at 8:30 AM and he did not present to ED until 4 PM that same day. Symptoms gradually improving on admission. Admitted for further stroke work-up Past Medical History Cardiac Medical History: Reports: Coronary Artery Disease, Hyperlipidema, Hypertension Denies: Congestive Heart Failure, Myocardial Infarction Pulmonary Medical History: Reports: Chronic Obstructive Pulmonary Disease (COPD), Pneumonia Denies: Asthma, Bronchitis, Tuberculosis Neurological Medical History: Denies: Seizures Renal/ Medical History: Denies: End Stage Renal Disease GI Medical History: Reports: Gastroesophageal Reflux Disease Denies: Cirrhosis Musculoskeltal Medical History: Reports: Arthritis Psychiatric Medical History: Reports: Bipolar Disorder, Depression Hematology: Reports: Anemia Denies: Bleeding Tendencies Past Surgical History Past Surgical History: Reports: Herniorrhaphy - Hernia repair x2 Social History Lives with: Family Smoking Status: Current Every Day Smoker Electronic Cigarette use?: No Frequency of Alcohol Use: None Hx Recreational Drug Use: No Drugs: None Hx Prescription Drug Abuse: No Past Social History Note: Continues to smoke cigarettes daily - Advance Directive Resuscitation Status: Full Code Family History Family History: Reviewed & Not Pertinent, COPD Parental Family History Reviewed: Yes Children Family History Reviewed: Yes Sibling(s) Family History Reviewed.: Yes Medication/Allergy Home Medications: Benztropine Mesylate [Benztropine Mesylate 2 mg Tablet] 2 mg PO Q8 08/29/17 Gabapentin [Neurontin 300 mg Capsule] 600 mg PO Q8 08/29/17 Metformin HCl [Glucophage 500 mg Tablet] 500 mg PO BIDBS 08/29/17 Ranitidine HCl [Zantac 150 mg Tablet] 300 mg PO DAILY 08/29/17 Simvastatin [Zocor 40 mg Tablet] 40 mg PO QHS 08/29/17 Trazodone HCl [Desyrel] 300 mg PO QHS 08/29/17 Eszopiclone [Lunesta] 2 mg PO QHS 02/24/19 Sertraline HCl [Zoloft 50 mg Tablet] 50 mg PO DAILY 02/24/19 Valbenazine Tosylate [Ingrezza] 80 mg PO DAILY 02/24/19 Ziprasidone HCl [Geodon 60 Mg Capsule] 60 mg PO Q12 02/24/19 Cholecalciferol (Vitamin D3) [Vitamin D3] 50,000 unit PO ONCE PRN 11/28/19 Allergies/Adverse Reactions: varenicline tartrate [From Chantix] Allergy (Unknown, Verified 11/28/19 16:09) amoxicillin Allergy (Verified 11/28/19 16:09) Penicillins Allergy (Verified 11/28/19 16:09) Review of Systems All systems: reviewed and no additional remarkable complaints except as stated - See HPI for full ROS. Physical Exam Vital Signs: Temp Pulse Resp BP Pulse Ox 97.6 F 61 15 142/81 H 96 11/28/19 15:56 11/28/19 15:56 11/28/19 21:01 11/28/19 21:01 11/28/19 21:01 Intake & Output 11/27/19 11/28/19 11/29/19 06:59 06:59 06:59 Weight 52.617 kg General appearance: PRESENT: no acute distress, cooperative Head exam: PRESENT: atraumatic, normocephalic Eye exam: PRESENT: conjunctiva pink Mouth exam: PRESENT: moist Respiratory exam: PRESENT: clear to auscultation roshan. ABSENT: rales, rhonchi, wheezes Cardiovascular exam: PRESENT: RRR. ABSENT: diastolic murmur, rubs, systolic murmur GI/Abdominal exam: PRESENT: normal bowel sounds, soft. ABSENT: distended, guarding, mass, organolmegaly, rebound, tenderness Rectal exam: PRESENT: deferred Extremities exam: ABSENT: pedal edema Neurological exam: PRESENT: alert, awake, oriented to person, oriented to place, oriented to time, oriented to situation, motor sensory deficit - LUE weakness 4/5, strength normal in RUE and BLE. ABSENT: CN II-XII grossly intact - Mild dysarthria persistent, perhaps mild right facial droop though very subtle Psychiatric exam: PRESENT: appropriate affect, normal mood Skin exam: PRESENT: dry, intact, warm Results Laboratory Results: 11/28/19 16:18 11/28/19 16:18 11/28/19 11/28/19 16:18 16:18 WBC 6.7 RBC 4.86 Hgb 12.5 L Hct 37.8 L MCV 78 L MCH 25.8 L MCHC 33.2 RDW 14.6 H Plt Count 193 Seg Neutrophils % 60.9 Sodium 141.2 Potassium 4.5 Chloride 102 Carbon Dioxide 29 Anion Gap 10 BUN 17 Creatinine 0.89 Est GFR ( Amer) > 60 Glucose 87 Calcium 9.9 Total Bilirubin 0.5 AST 18 Alkaline Phosphatase 65 Total Protein 7.6 Albumin 4.2 11/28/19 16:18 Troponin I < 0.012 Impressions: Chest X-Ray 11/28/19 00:00 IMPRESSION: Chronic lung changes with no acute cardiopulmonary finding. Head CT 11/28/19 16:11 IMPRESSION: No acute intracranial abnormality. EVIDENCE OF ACUTE STROKE: NO. Assessment and Plan - Diagnosis (1) CVA (cerebrovascular accident) Qualifiers: CVA mechanism: unspecified Qualified Code(s): I63.9 - Cerebral infarction, unspecified Is this a current diagnosis for this admission?: Yes Plan: Suspect acute CVA CT head without contrast showed no acute abnormalities, old strokes noted MRI brain ordered Carotid PVL Echocardiogram Full-strength aspirin daily Would likely benefit from 21 days of DAPT if stroke is confirmed Change to high intensity statin Lipid panel Neurochecks Permissive hypertension for 48 hours or until stroke is ruled out (2) Bipolar disorder Is this a current diagnosis for this admission?: Yes Plan: Home medications continued (3) CAD (coronary artery disease) Qualifiers: Associated angina: without angina Is this a current diagnosis for this admission?: Yes Plan: Aspirin, statin No chest pain (4) COPD (chronic obstructive pulmonary disease) Is this a current diagnosis for this admission?: Yes Plan: Stable, does not use home oxygen (5) Diabetes mellitus type 2 in nonobese Is this a current diagnosis for this admission?: Yes Plan: Does not use insulin at home, only metformin Accu-Cheks, low-dose correctional insulin here, hold oral diabetes meds (6) Hyperlipidemia Qualifiers: Hyperlipidemia type: mixed hyperlipidemia Qualified Code(s): E78.2 - Mixed hyperlipidemia Is this a current diagnosis for this admission?: Yes Plan: High intensity statin (7) Hypertension Qualifiers: Hypertension type: essential hypertension Qualified Code(s): I10 - Essential (primary) hypertension Is this a current diagnosis for this admission?: Yes Plan: Not on any medications prior to admission Permissive hypertension until rule out CVA - Time Time Spent with patient: 35 or more minutes Smoking Cessation Education: 3 to 10 minutes Medications reviewed and adjusted accordingly: Yes Anticipated discharge: Home Within: within 48 hours - Inpatient Certification Medical Necessity: Significant Comorbidiites Make Outpatient Treatment Too Risky, Need Close Monitoring Due to Risk of Patient Decompensation
[2019-11-29] MEDS ORDERED: INFLUENZA QUAD (6MOS+) 2019-20 VAC 0.5 ML SYR IM ONE (00:08)
[2019-11-29] MEDS ORDERED: BENZTROPINE MESYLATE 1 MG TABLET PO ONE (00:30)
[2019-11-29] MEDS: TRAZODONE HCL 50 MG TABLET PO SCH ×2 (00:47→21:53)
[2019-11-29] MEDS: ZIPRASIDONE HCL 60 MG CAPSULE PO SCH ×3 (00:48→21:50)
[2019-11-29] MEDS: GABAPENTIN 300 MG CAPSULE PO SCH ×4 (00:48→21:50)
--- NOTE | 2019-11-29 02:10 | ADVANCED CARE ---
- Diagnosis (1) CVA (cerebrovascular accident) Diagnosis Current: Yes (2) Bipolar disorder Diagnosis Current: Yes (3) CAD (coronary artery disease) Diagnosis Current: Yes (4) COPD (chronic obstructive pulmonary disease) Diagnosis Current: Yes (5) Diabetes mellitus type 2 in nonobese Diagnosis Current: Yes (6) Hyperlipidemia Diagnosis Current: Yes (7) Hypertension Diagnosis Current: Yes Attendance: patient Resuscitation Status: Full Code Discussion: All aspects of CODE STATUS discussed including chest compressions, cardioversion, intubation, patient stated he wishes to be full code. Time Spent: 17 minutes
[2019-11-29 05:41] LABS: ABSOLUTE BASOPHILS # (AUTO) 0.1 10^3/uL (0.0-0.2); ABSOLUTE EOSINOPHILS # (AUTO) 0.5 10^3/uL (0.0-0.6); ABSOLUTE LYMPHOCYTES (AUTO) 1.9 10^3/uL (0.5-4.7); ABSOLUTE MONOCYTES (AUTO) 0.6 10^3/uL (0.1-1.4); ABSOLUTE NEUT (AUTO) 2.7 10^3/uL (1.7-8.2); BASOPHILS % (AUTO) 1.2 % (0-2); EOSINOPHILS % (AUTO) 8.6 % (0-6); HEMATOCRIT 35.8 % (37.9-51.0); LYMPHOCYTES % (AUTO) 33.4 % (13-45); MEAN CORPUSCULAR HEMOGLOBIN 25.7 pg (27.0-33.4); MEAN CORPUSCULAR HGB CONC 33.5 g/dL (32.0-36.0); MEAN CORPUSCULAR VOLUME 77 fl (80-97); MONOCYTES % (AUTO) 10.1 % (3-13); PLATELET COUNT 177 10^3/uL (150-450); RED BLOOD COUNT 4.65 10^6/uL (4.35-5.55); RED CELL DISTRIBUTION WIDTH 14.5 % (11.5-14.0); SEGMENTED NEUTROPHILS % (AUTO) 46.7 % (42-78); TOTAL CELLS COUNTED % (AUTO) 100 %; WHITE BLOOD COUNT 5.8 10^3/uL (4.0-10.5)
[2019-11-29 05:54] LABS: ANION GAP 12 (5-19); BLOOD UREA NITROGEN 15 mg/dL (7-20); CALCIUM 9.6 mg/dL (8.4-10.2); CARBON DIOXIDE 25 mmol/L (22-30); CHLORIDE 102 mmol/L (98-107); CHOLESTEROL 120.09 mg/dL (0-200); GLUCOSE 81 mg/dL (75-110); POTASSIUM 3.9 mmol/L (3.6-5.0); TRIGLYCERIDES 91 mg/dL (<150)
[2019-11-29] MEDS: BENZTROPINE MESYLATE 1 MG TABLET PO SCH ×3 (05:56→21:44)
[2019-11-29] MEDS: HEPARIN SOD (PORCINE) 5,000 UNIT/ML 1 ML VIAL SUBCUT SCH ×4 (05:57→21:44)
[2019-11-29 06:05] LABS: DIRECT LDL 64 mg/dL (<100)
[2019-11-29] MEDS ORDERED: GLUCAGON,HUMAN RECOMB 1 MG INJ SUBCUT PRN (07:56)
[2019-11-29] MEDS ORDERED: DEXTROSE 40% GEL 15 GM TUBE PO PRN ×2 (07:56)
[2019-11-29] MEDS ORDERED: DEXTROSE 50%-WATER 25 GM/50 ML DISP.SYRIN IV PRN ×2 (07:56)
[2019-11-29] MEDS ORDERED: INSULIN LISPRO 100 UNIT/ML 3 ML VIAL SUBCUT SCH (08:00)
[2019-11-29] MEDS ORDERED: ASPIRIN 325 MG TABLET, ENT COATED PO SCH (10:00)
[2019-11-29] MEDS ORDERED: VALBENAZINE TOSYLATE 80 MG PO SCH (10:00)
[2019-11-29] MEDS ORDERED: FAMOTIDINE 20 MG TABLET PO SCH (10:00)
[2019-11-29] MEDS ORDERED: SERTRALINE HCL 50 MG TABLET PO SCH (10:00)
[2019-11-29] MEDS: INSULIN LISPRO 100 UNIT/ML 3 ML VIAL SUBCUT SCH ×2 (11:30→18:36)
--- NOTE | 2019-11-29 13:23 | PDOC PROGRESS REPORT ---
Subjective Progress Note for:: 11/29/19 Subjective:: AMISHA ABBOTT is a 54 year old male with past medical history of previous CVA events, TIA, T2 DM, HTN, HLD, COPD, CAD, bipolar disorder who presented to ED with complaints of LUE weakness worse than baseline weakness from previous stroke, dysarthria, word finding difficulty, slurred speech. Patient states the symptoms are consistent with his previous CVAs. He states he takes 81 mg aspirin daily which was given to him by his daughter and endorses full compliance with this. He states he takes all his medications that are given to him by his daughter. He was not a candidate for TPA as his symptoms began at 8:30 AM and he did not present to ED until 4 PM that same day. Symptoms gradually improving on admission. Admitted for further stroke work-up 11/29/2019. No acute events overnight. Saw patient this morning resting in bed comfortably, no apparent distress, patient stating that he has some chronic deficits from previous stroke on left upper and lower extremity but he feels like it is getting worse on this admission. Reason For Visit: ACUTE CVA VS TIA Physical Exam Vital Signs: Temp Pulse Resp BP Pulse Ox 97.2 F 54 L 16 131/70 H 97 11/29/19 11:21 11/29/19 11:21 11/29/19 11:21 11/29/19 11:21 11/29/19 11:21 Intake & Output 11/28/19 11/29/19 11/30/19 06:59 06:59 06:59 Weight 53.5 kg General appearance: PRESENT: no acute distress, well-developed, well-nourished Head exam: PRESENT: atraumatic, normocephalic Respiratory exam: PRESENT: clear to auscultation roshan. ABSENT: rales, rhonchi, wheezes Cardiovascular exam: PRESENT: RRR. ABSENT: diastolic murmur, rubs, systolic murmur GI/Abdominal exam: PRESENT: normal bowel sounds, soft. ABSENT: distended, guarding, mass, organolmegaly, rebound, tenderness Extremities exam: PRESENT: full ROM. ABSENT: calf tenderness, clubbing, pedal edema Neurological exam: PRESENT: alert, awake, oriented to person, oriented to place, oriented to time, oriented to situation, CN II-XII grossly intact - Left facial droop.. ABSENT: motor sensory deficit - Left upper extremity strength 4/5. Left lower extremity strength 3/5. Dull sensation to upper and lower extremities. Results Laboratory Results: 11/29/19 05:10 11/29/19 05:10 11/28/19 11/28/19 11/29/19 16:18 16:18 05:10 WBC 6.7 5.8 RBC 4.86 4.65 Hgb 12.5 L 12.0 L Hct 37.8 L 35.8 L MCV 78 L 77 L MCH 25.8 L 25.7 L MCHC 33.2 33.5 RDW 14.6 H 14.5 H Plt Count 193 177 Seg Neutrophils % 60.9 46.7 Sodium 141.2 Potassium 4.5 Chloride 102 Carbon Dioxide 29 Anion Gap 10 BUN 17 Creatinine 0.89 Est GFR ( Amer) > 60 Glucose 87 Calcium 9.9 Total Bilirubin 0.5 AST 18 Alkaline Phosphatase 65 Total Protein 7.6 Albumin 4.2 Triglycerides Cholesterol LDL Cholesterol Direct VLDL Cholesterol HDL Cholesterol 11/29/19 05:10 WBC RBC Hgb Hct MCV MCH MCHC RDW Plt Count Seg Neutrophils % Sodium 139.0 Potassium 3.9 Chloride 102 Carbon Dioxide 25 Anion Gap 12 BUN 15 Creatinine 0.73 Est GFR ( Amer) > 60 Glucose 81 Calcium 9.6 Total Bilirubin AST Alkaline Phosphatase Total Protein Albumin Triglycerides 91 Cholesterol 120.09 LDL Cholesterol Direct 64 VLDL Cholesterol 18.0 HDL Cholesterol 43 11/28/19 16:18 Troponin I < 0.012 Impressions: Chest X-Ray 11/28/19 00:00 IMPRESSION: Chronic lung changes with no acute cardiopulmonary finding. Head CT 11/28/19 16:11 IMPRESSION: No acute intracranial abnormality. EVIDENCE OF ACUTE STROKE: NO. Assessment and Plan - Diagnosis (1) CVA (cerebrovascular accident) Qualifiers: CVA mechanism: unspecified Qualified Code(s): I63.9 - Cerebral infarction, unspecified Is this a current diagnosis for this admission?: Yes Plan: Complaining of worsening left upper or lower extremity numbness and tingling. Left facial droop. Suspect acute CVA/TIA CT head without contrast showed no acute abnormalities, old strokes noted Pending MRI brain, 2D carotid. Echo. Continue neuro check, fall, aspiration and seizure precautions. PT/ST/OT. DAPT. Optimize BP. High intensity statins. Optimize diabetic control. Permissive hypertension for 48 hours or until stroke is ruled out (2) Bipolar disorder Is this a current diagnosis for this admission?: Yes Plan: Restart home meds. Outpatient PCP and psychiatry follow-up. (3) CAD (coronary artery disease) Qualifiers: Associated angina: without angina Is this a current diagnosis for this admission?: Yes Plan: Denies any anginal symptoms. EKG no acute changes. Troponins negative. Continue DAPT, statins, NINA and beta-blockers. (4) COPD (chronic obstructive pulmonary disease) Is this a current diagnosis for this admission?: Yes Plan: Not acutely exacerbated. SPO2 WNL on RA. History of non-oxygen dependent COPD. Restart home meds. Monitor vitals. Outpatient PCP and pulmonology follow-up. (5) Diabetes mellitus type 2 in nonobese Is this a current diagnosis for this admission?: Yes Plan: Well controlled on p.o. meds. Hemoglobin A1c 5.3. Diabetic diet. Accu-Chek. Hypoglycemic protocol. Sliding scale insulin. Hold antidiabetics. Resume it upon discharge.
--- NOTE | 2019-11-29 15:07 | ST Inp Modified Barium Swallow ---
Medical Diagnosis - Medical Diagnoses Medical Diagnosis Description & ICD-10 Code(s): CVA - ICD-10 Tx Diagnosis Coding (1) CVA (cerebrovascular accident) ICD-10 Code(s): I63.9 - CEREBRAL INFARCTION, UNSPECIFIED ST Inpatient [facility] [place] - General Date: 11/29/19 - History History Obtained From: Patient - Patient reports "some difficutly with swallow before" and "no trouble following last stroke." -: Medical - patient admitted 3/ with LUE weakness, dysarthria, word finding deficits. Prior medical history includes prior CVA events, TIA, diabetes, hypertension, hyperlipidemia, COPD, CAD, bipolar disorder. No reported residual deficits following prior CVA. Patient failed nursing swallow screen x2. Bedside completed this morning with patient demonstrating signs/symptoms of aspiration. Currently NPO. Medications: Medications Reviewed Allergies: Refer to medical record - Subjective Current Nutritional Means: NPO Current PO Diet: N/A (NPO) Current Symptoms: Coughing, Wet/gurgly voice Pain: no signs/symptoms of pain - Objective Assessment: Upright - Food Trials Food Trials Used: Thin liquids, Conley thick liquids, Pureed, Regular The Patient: Was Able to Self Feed - Assessment Labial Function: Within Normal Limits Lingual Function: Within Normal Limits Mandibular Function: Impaired - noted reduced fluidity with mandibular function in speech and with mastication Velo-Pharyngeal Function: Not assessed Laryngeal Function: Volitional Cough, Volitional Swallow - Pharyngeal Stage Initiation of Pharyngeal Stage: Delayed Decreased Laryngeal Elevation: Yes Reduced Velo-Pharyngeal Closure: no Reduced Pressure Generation: Yes Pre-Swallowing Pooling in Valleculae: Mild Pre-Swallowing Pooling in Pyriforms: Mild Reduced Thyro-Hyiod Approximation: Yes Reduced Epiglottic Excursion: Yes Reduced Pharyngeal Peristalsis: Yes Multiple Swallows With: Effective Post Swallow Residuals in Valleculae: Mild Post Swallow Residuals in Pyriforms: Moderate - Increased residue with regular solids compared to puree trials. Post Swallow Residuals: throughout pharynx Pahryngeal Stage Comments: Patient presents with severe pharyngeal dysphagia characterized by uncoordinated swallow mechanism, reduced epiglottic inversion, and reduced airway protection, leading to observed penetration with thin liquids and leading patient to be at a high risk of aspiration with all consistencies. Patient able to clear penetration with cued throat clear. Residuals noted throughout pharynx post-swallow for all consistencies, with increased residuals with regular solid trial. Residuals cleared with 3-4 subsequent swallows with dry swallows for solid and liquid trials. Noted mildly increased epiglottic inversion with nectar thick liquid compared to thin liquid trials. Given patients high risk of airway compromise recommend patient continue to be NPO with ice chips for re-conditioning of swallow function. Patient likely to benefit from repeat MBSS at the beginning of following week to determine readiness to start oral diet. Patient educated on results of study, high risk nature of swallow, need for alternative means of nutrition, and use of ice chips to re-condition swallow mechanism. Patient reported understanding. MBSS not recorded due to technical difficulty with recording. - Impression/Summary Laryngeal Penetration: Yes, Silent, after swallow Tracheal Aspiration: no Effective Clearing: yes Patient Presents With: Pharyngeal stage dysph., Severe Risk of Aspiration: Moderate - Recommendations NPO: yes Dysphagia Therapy with SKIN PILER: Yes, Inpatient Supervision: Constant Other Recommendations: Given patients high risk of airway compromise recommend patient continue to be NPO with ice chips for re-conditioning of swallow fun ction. and RN aware. - Time Total Time: 30 Total Timed Minutes: 30
--- NOTE | 2019-11-29 15:35 | RADIOLOGY REPORT (SQ) ---
EXAM DESCRIPTION: MRI HEAD WITHOUT COMPLETED DATE/TIME: 11/29/2019 2:39 pm REASON FOR STUDY: CVA COMPARISON: CT dated 11/28/2019. TECHNIQUE: Multiplanar imaging includes non-contrasted T1, T2, FLAIR, and Diffusion with ADC map seq uences. Images stored on PACS. LIMITATIONS: Motion artifact. FINDINGS: ANATOMY: No anomalies. Normal vascular flow voids. Pituitary fossa normal. CSF SPACES: Normal in size and contour. No hemorrhage. CEREBRUM: A few high-signal intensity lesions scattered throughout the white matter on FLAIR imaging with distribution suggesting chronic micro-vascular ischemic change. Sulci and gyri normal in size a nd contour. No evidence of hemorrhage, mass or extraaxial fluid collection. POSTERIOR FOSSA: No signal alteration. No hemorrhage. No edema, masses or mass effect. Internal mariana tory canals, cerebello-pontine angles, mastoids normal. DIFFUSION: Negative for acute or sub-acute infarction. ORBITS: No masses. Globes normal. PARANASAL SINUSES: No fluid levels. Mucosa normal. OTHER: No other significant finding. IMPRESSION: MINIMAL MICROVASCULAR ISCHEMIC CHANGE. OTHERWISE NORMAL STUDY. EVIDENCE OF ACUTE STROKE: NO. TECHNICAL DOCUMENTATION: JOB ID: [id number] 2010 [employer]- All Rights Reserved Reading location - IP/workstation name: [email or web address]
--- NOTE | 2019-11-29 15:44 | RADIOLOGY REPORT (SQ) ---
EXAM DESCRIPTION: MICHAEL SWALLOW COMPLETED DATE/TIME: 11/29/2019 2:37 pm REASON FOR STUDY: dysphagia following CVA COMPARISON: None. TECHNIQUE: Videofluoroscopic swallowing examination was performed in conjunction with speech patholo gy. Videofluoroscopic imaging was obtained and reviewed and these are the findings: RADIATION DOSE: 5.4 MINUTES OF FLUOROSCOPY WAS USED. 3 images saved to PACS. LIMITATIONS: None FINDINGS: The patient was brought into the fluoro room and placed upright on a modified barium swall ow chair. The patient was then given multiple consistencies mixed with barium to swallow under live fluoroscopic video guidance. According to the Speech Pathologist there was laryngeal penetration wit h thin liquids without aspiration. Patient demonstrates a discoordinated swallow with poor oral cont rol of the bolus and weak epiglottic excursion. IMPRESSION: LARYNGEAL PENETRATION WITHOUT ASPIRATION. PLEASE SEE SPEECH PATHOLOGIST REPORT FOR OTHER FINDINGS AND RECOMMENDATIONS. COMMENT: Quality ID 145: Final reports for procedures using fluoroscopy that document radiation exp osure indices, or exposure time and number of fluorographic images (if radiation exposure indices are not available) TECHNICAL DOCUMENTATION: JOB ID: [id number] 2010 [employer]- All Rights Reserved Reading location - IP/workstation name: [email or web address]
--- NOTE | 2019-11-29 16:42 | RADIOLOGY REPORT (SQ) ---
EXAM DESCRIPTION: CAROTID DOPPLER COMPLETED DATE/TIME: 11/29/2019 3:47 pm REASON FOR STUDY: cva COMPARISON: 02/05/2015. TECHNIQUE: Grayscale ultrasound, Doppler velocity and spectra, and color Doppler images acquired of the extra-cranial carotid and vertebral arteries. Images stored on PACS. LIMITATIONS: None. FINDINGS: RIGHT CAROTID CCA Velocities: Within normal limits. ICA Velocities Peak systolic 1.15 m/s. End diastolic 0.29 m/s. Proximal ICA/CCA peak systolic ratio 1.08. Spectra normal. No significant plaque. LEFT CAROTID CCA Velocities: Within normal limits. ICA Velocities Peak systolic 0.9 m/s. End diastolic 0.21 m/s. Proximal ICA/CCA peak systolic ratio 0.85. Spectra normal. No significant plaque. VERTEBRAL ARTERIES: Right vertebral artery antegrade flow. Left vertebral artery not visualized. SUBCLAVIAN ARTERIES: No finding. OTHER: No other significant finding. IMPRESSION: NO HEMODYNAMICALLY SIGNIFICANT STENOSIS IN THE INTERNAL CAROTID ARTERIES. THE LEFT VERTEBRAL ARTERY IS NOT VISUALIZED. THE VESSEL MAY BE SMALL OR OCCLUDED. RIGHT VERTEBRAL A RTERY ANTEGRADE FLOW. COMMENT: Quality ID #[id number]: Velocity criteria are extrapolated from the diameter data as defined by t he Society of Radiologists in Ultrasound Consensus Conference. Radiology 2003: 229; 340-346. TECHNICAL DOCUMENTATION: JOB ID: [id number] 2010 [employer]- All Rights Reserved Reading location - IP/workstation name: [email or web address]
--- NOTE | 2019-11-29 20:05 | XCELERA REPORT ---
[address] [address] Transthoracic Echocardiogram Report Name: AMISHA ABBOTT Age: 54 yrs Gender: Male : 1965 Patient Status: Inpatient Patient Location: [address] [place] [address] Study Date: 11/29/2019 08:20 AM Procedure: A complete two-dimensional transthoracic echocardiogram was performed (2D, M-mode, spectral and color flow Doppler). The study was technically difficult with many images being suboptimal in quality. Reason For Study: cva Ordering Physician: MALINDA COCHRAN Performed By: Shawnee Acevedo Interpretation Summary study performed with student The left ventricular ejection fraction is within normal limits. There is borderline concentric left ventricular hypertrophy. The left ventricle is grossly normal size. Doppler measurements suggest pseudonormalized left ventricular relaxation, which is associated with grade II/IV or mild to moderate diastolic dysfunction Wall motion cannot be accurately commented on, but no definite regional wall motion abnormalities noted. The right ventricular systolic function is normal. The left atrium is mildly dilated. The right atrium is normal. There is a trace amount of mitral regurgitation There is no mitral valve stenosis. A bicuspid aortic valve cannot be excluded. There is no aortic valve stenosis There is a trace to mild amount of aortic regurgitation There is a trace or physiologic amount of tricuspid regurgitation Tricuspid regurgitation jet envelope not well defined to measure RV systolic pressure accurately. The aortic root is not well visualized. The inferior vena cava appeared normal and decreased > 50% with respiration (RAP 5-10 mmHg) No definite cardiac source of CVA/TIA noted on this particular trans-thoracic study. Consider NEHAL if clinically indicated. MMode/2D Measurements & Calculations RVDd: 2.0 cm LVIDd: 4.7 cm FS: 36.0 % Ao root diam: 2.0 cm IVSd: 0.81 cm LVIDs: 3.0 cm EDV(Teich): 104.4 ml Ao root area: 3.1 cm2 LVPWd: 0.90 cm ESV(Teich): 36.0 ml EF(Teich): 65.5 % Doppler Measurements & Calculations MV E max jenni: MV dec slope: AI max jenni: LV V1 max P.2 cm/sec 199.9 cm/sec 2.9 mmHg MV A max jenni: 238.4 cm/sec2 AI max P.0 mmHg LV V1 max: 69.3 cm/sec MV dec time: AI dec slope: 85.0 cm/sec MV E/A: 0.95 0.28 sec 113.2 cm/sec2 AI P1/2t: 517.3 msec PA V2 max: TR max jenni: 93.0 cm/sec 208.7 cm/sec PA max PG: TR max P.6 mmHg 3.5 mmHg Left Ventricle The left ventricle is grossly normal size. There is borderline concentric left ventricular hypertrophy. The left ventricular ejection fraction is within normal limits. Doppler measurements suggest pseudonormalized left ventricular relaxation, which is associated with grade II/IV or mild to moderate diastolic dysfunction. Wall motion cannot be accurately commented on, but no definite regional wall motion abnormalities noted. Right Ventricle The right ventricle is grossly normal size. There is normal right ventricular wall thickness. The right ventricular systolic function is normal. Atria The right atrium is normal. The left atrium is mildly dilated. Interarterial septum not well visualized and not well dopplered. Cannot comment on ASD/PFO presence. Mitral Valve The mitral valve is grossly normal. There is no mitral valve stenosis. There is a trace amount of mitral regurgitation. Aortic Valve A bicuspid aortic valve cannot be excluded. There is no aortic valve stenosis. There is a trace to mild amount of aortic regurgitation. Tricuspid Valve The tricuspid valve is not well visualized, but is grossly normal. There is no tricuspid stenosis. There is a trace or physiologic amount of tricuspid regurgitation. Tricuspid regurgitation jet envelope not well defined to measure RV systolic pressure accurately. Pulmonic Valve The pulmonic valve is not well seen, but is grossly normal. Great Vessels The aortic root is not well visualized. The inferior vena cava appeared normal and decreased > 50% with respiration (RAP 5-10 mmHg). Effusions There is no pericardial effusion. Incidental Findings No definite cardiac source of CVA/TIA noted on this particular trans-thoracic study. Consider NEHAL if clinically indicated. : MALINDA COCHRAN Shyamal
[2019-11-29] MEDS ORDERED: ZOLPIDEM TARTRATE 5 MG TABLET PO SCH (22:00)
[2019-11-29] MEDS ORDERED: ATORVASTATIN CALCIUM 80 MG TABLET PO SCH (22:00)
[2019-11-29] MEDS ORDERED: ATORVASTATIN CALCIUM 40 MG TABLET PO SCH (22:00)
[2019-11-30] MEDS: INSULIN LISPRO 100 UNIT/ML 3 ML VIAL SUBCUT SCH ×4 (00:53→18:48)
[2019-11-30] MEDS: BENZTROPINE MESYLATE 1 MG TABLET PO SCH (06:30)
[2019-11-30] MEDS: GABAPENTIN 300 MG CAPSULE PO SCH (06:31)
[2019-11-30] MEDS: HEPARIN SOD (PORCINE) 5,000 UNIT/ML 1 ML VIAL SUBCUT SCH ×3 (06:35→22:12)
[2019-11-30] MEDS ORDERED: GLUCAGON,HUMAN RECOMB 1 MG INJ IM PRN (07:28)
[2019-11-30] MEDS ORDERED: DEXTROSE 40% GEL 15 GM TUBE PO PRN ×2 (07:28)
[2019-11-30] MEDS ORDERED: DEXTROSE 50%-WATER 25 GM/50 ML DISP.SYRIN IV PRN ×2 (07:28)
[2019-11-30] MEDS ORDERED: DOCUSATE SODIUM 100 MG/10 ML UDC PO PRN (08:59)
[2019-11-30] MEDS ORDERED: DOCUSATE SODIUM 100 MG/10 ML UDC NG PRN (09:00)
[2019-11-30] MEDS ORDERED: ACETAMINOPHEN 325 MG TABLET NG PRN (09:00)
[2019-11-30] MEDS ORDERED: PHARMACY COMMUNICATION ORDER MC NR (09:00)
[2019-11-30] MEDS ORDERED: ONDANSETRON 4 MG TAB.RAPDIS NG PRN (09:30)
[2019-11-30] MEDS: ZIPRASIDONE HCL 60 MG CAPSULE PO SCH (11:16)
--- NOTE | 2019-11-30 11:54 | RADIOLOGY REPORT (SQ) ---
EXAM DESCRIPTION: KUB/ABDOMEN (SINGLE VIEW) COMPLETED DATE/TIME: 11/30/2019 11:21 am REASON FOR STUDY: Check Placement of NG Tube COMPARISON: None. NUMBER OF VIEWS: One view. TECHNIQUE: Supine radiographic image of the abdomen acquired. LIMITATIONS: None. FINDINGS: BOWEL GAS PATTERN: Nonobstructive pattern. Gas and enteric contrast throughout the colon. CALCIFICATIONS: No suspicious calcifications. SOFT TISSUES: No gross mass or suggestion of organomegaly. HARDWARE: Nasogastric tube down. BONES: No acute fracture. No worrisome bone lesions. OTHER: No other significant finding. IMPRESSION: NO RADIOGRAPHIC EVIDENCE FOR ACUTE ABDOMINAL DISEASE. TECHNICAL DOCUMENTATION: JOB ID: [id number] 2010 [employer]- All Rights Reserved Reading location - IP/workstation name: [email or web address]
[2019-11-30] MEDS: SERTRALINE HCL 50 MG TABLET NG SCH (12:19)
[2019-11-30] MEDS: ASPIRIN 325 MG TABLET NG SCH (12:20)
[2019-11-30] MEDS: FAMOTIDINE 20 MG TABLET NG SCH (12:20)
--- NOTE | 2019-11-30 12:43 | PDOC PROGRESS REPORT ---
Subjective Progress Note for:: 11/30/19 Subjective:: AMISHA ABBOTT is a 54 year old male with past medical history of previous CVA events, TIA, T2 DM, HTN, HLD, COPD, CAD, bipolar disorder who presented to ED with complaints of LUE weakness worse than baseline weakness from previous stroke, dysarthria, word finding difficulty, slurred speech. Patient states the symptoms are consistent with his previous CVAs. He states he takes 81 mg aspirin daily which was given to him by his daughter and endorses full compliance with this. He states he takes all his medications that are given to him by his daughter. He was not a candidate for TPA as his symptoms began at 8:30 AM and he did not present to ED until 4 PM that same day. Symptoms gradually improving on admission. Admitted for further stroke work-up 11/29/2019. No acute events overnight. Saw patient this morning resting in bed comfortably, no apparent distress, patient stating that he has some chronic deficits from previous stroke on left upper and lower extremity but he feels like it is getting worse on this admission. 11/30/2019. No acute events overnight. Patient reports mild improvement of left upper extremity numbness, no changes from left lower extremity, still have left facial droop and dysphagia, MRI, CT, 2D carotid and 2D echo has all been negative for any acute changes, unfortunately patient failed swallow eval yesterday and as per speech therapy did not recommend any p.o. intake until Tuesday when they can repeat the study again. Meanwhile patient is complaining of being extremely hungry and also he is on several medications that could not be crushed, minimal will put an NG tube for medication administration and feeding until Tuesday when speech therapy has reevaluated the patient again. Patient denies any fever, chills, nausea, vomiting, diarrhea, constipation. Reason For Visit: ACUTE CVA VS TIA Physical Exam Vital Signs: Temp Pulse Resp BP Pulse Ox 97.6 F 59 L 16 115/64 96 11/30/19 08:08 11/30/19 08:08 11/30/19 08:08 11/30/19 08:08 11/30/19 08:08 Intake & Output 11/29/19 11/30/19 12/01/19 06:59 06:59 06:59 Intake Total 60 Balance 60 Weight 53.5 kg 52.8 kg 52.8 kg General appearance: PRESENT: no acute distress, well-developed, well-nourished Head exam: PRESENT: atraumatic, normocephalic Respiratory exam: PRESENT: clear to auscultation roshan. ABSENT: rales, rhonchi, wheezes Cardiovascular exam: PRESENT: RRR. ABSENT: diastolic murmur, rubs, systolic murmur GI/Abdominal exam: PRESENT: normal bowel sounds, soft. ABSENT: distended, guarding, mass, organolmegaly, rebound, tenderness Neurological exam: PRESENT: alert, awake, oriented to person, oriented to place, oriented to time, oriented to situation, CN II-XII grossly intact - Left facial droop. Dysarthria.. ABSENT: motor sensory deficit - Left upper extremity strength 4/5, dull sensation. Left lower extremity strength 3/5. Results Laboratory Results: 11/29/19 05:10 11/29/19 05:10 11/28/19 16:18 Troponin I < 0.012 Impressions: Chest X-Ray 11/28/19 00:00 IMPRESSION: Chronic lung changes with no acute cardiopulmonary finding. Head CT 11/28/19 16:11 IMPRESSION: No acute intracranial abnormality. EVIDENCE OF ACUTE STROKE: NO. Head MRI 11/29/19 00:00 IMPRESSION: MINIMAL MICROVASCULAR ISCHEMIC CHANGE. OTHERWISE NORMAL STUDY. EVIDENCE OF ACUTE STROKE: NO. Modified Barium Swallow 11/29/19 00:00 IMPRESSION: LARYNGEAL PENETRATION WITHOUT ASPIRATION. PLEASE SEE SPEECH PATHOLOGIST REPORT FOR OTHER FINDINGS AND RECOMMENDATIONS. Carotid Doppler Study 11/29/19 21:55 IMPRESSION: NO HEMODYNAMICALLY SIGNIFICANT STENOSIS IN THE INTERNAL CAROTID ARTERIES. THE LEFT VERTEBRAL ARTERY IS NOT VISUALIZED. THE VESSEL MAY BE SMALL OR OCCLUDED. RIGHT VERTEBRAL ARTERY ANTEGRADE FLOW. KUB X-Ray 11/30/19 08:49 IMPRESSION: NO RADIOGRAPHIC EVIDENCE FOR ACUTE ABDOMINAL DISEASE. Assessment and Plan - Diagnosis (1) CVA (cerebrovascular accident) Qualifiers: CVA mechanism: unspecified Qualified Code(s): I63.9 - Cerebral infarction, unspecified Is this a current diagnosis for this admission?: Yes Plan: Suspect acute CVA/TIA initially however patient's work-up is all negative. Left lower extremity numbness improving compared to admission. Persistent left facial droop and left lower extremity weakness. Of note patient had history of previous CVA and has had deficits on left upper and lower extremities CT head negative for any acute stroke. Howie brain negative for any acute stroke. 2D carotid negative for any hemodynamically significant stenosis except for left vertebral artery occlusion. 2D echo LVEF WNL. PFO/ASD could not be determined. Please refer to echo report. Continue fall, aspiration and seizure precautions. PT/ST/OT. DAPT. Optimize BP. High intensity statins. Optimize diabetic control. Permissive hypertension for 48 hours or until stroke is ruled out (2) Bipolar disorder Is this a current diagnosis for this admission?: Yes Plan: Restart home meds. Outpatient PCP and psychiatry follow-up. (3) CAD (coronary artery disease) Qualifiers: Associated angina: without angina Is this a current diagnosis for this admission?: Yes Plan: Denies any anginal symptoms. EKG no acute changes. Troponins negative. Continue DAPT, statins, NINA and beta-blockers. (4) COPD (chronic obstructive pulmonary disease) Is this a current diagnosis for this admission?: Yes Plan: Not acutely exacerbated. SPO2 WNL on RA. History of non-oxygen dependent COPD. Restart home meds. Monitor vitals. Outpatient PCP and pulmonology follow-up. (5) Diabetes mellitus type 2 in nonobese Is this a current diagnosis for this admission?: Yes Plan: Well controlled on p.o. meds. Hemoglobin A1c 5.3. Diabetic diet. Accu-Chek. Hypoglycemic protocol. Sliding scale insulin. Hold antidiabetics. Resume it upon discharge. (6) Dysphagia Qualifiers: Dysphagia type: oropharyngeal phase Qualified Code(s): R13.12 - Dysphagia, oropharyngeal phase Is this a current diagnosis for this admission?: Yes Plan: Due to chronic CVA. Failed modified barium swallow eval. Repeat modified barium swallow eval recommended on Tuesday. Patient is on multiple p.o. medication including his antipsychotics which could not be crushed and there is no IV or IM forms of them and also patient is diabetic and complaining of being extremely hungry. While patient is waiting to be reevaluated by speech therapy on Tuesday we will start on NG tube for continuing his feeds and medication administration. Patient is in agreement with the plan. Continue NG-tube care. Monitor for aspiration.
[2019-11-30] MEDS: GABAPENTIN 300 MG CAPSULE NG SCH ×2 (14:15→22:11)
[2019-11-30] MEDS: BENZTROPINE MESYLATE 1 MG TABLET NG SCH ×2 (14:15→22:11)
[2019-11-30] MEDS: ATORVASTATIN CALCIUM 80 MG TABLET NG SCH (22:10)
[2019-11-30] MEDS: TRAZODONE HCL 50 MG TABLET NG SCH (22:10)
[2019-11-30] MEDS: ZOLPIDEM TARTRATE 5 MG TABLET NG SCH (22:10)
[2019-11-30] MEDS: OLANZAPINE 5 MG TABLET PO SCH (22:11)
[2019-12-01] MEDS: INSULIN LISPRO 100 UNIT/ML 3 ML VIAL SUBCUT SCH ×4 (04:08→18:24)
[2019-12-01] MEDS: GABAPENTIN 300 MG CAPSULE NG SCH ×3 (06:12→21:12)
[2019-12-01] MEDS: BENZTROPINE MESYLATE 1 MG TABLET NG SCH ×3 (06:12→21:12)
[2019-12-01] MEDS: HEPARIN SOD (PORCINE) 5,000 UNIT/ML 1 ML VIAL SUBCUT SCH ×3 (06:13→21:14)
[2019-12-01] MEDS: OLANZAPINE 5 MG TABLET PO SCH ×2 (11:09→21:12)
[2019-12-01] MEDS: FAMOTIDINE 20 MG TABLET NG SCH (11:09)
[2019-12-01] MEDS: ASPIRIN 325 MG TABLET NG SCH (11:09)
[2019-12-01] MEDS: SERTRALINE HCL 50 MG TABLET NG SCH (11:10)
--- NOTE | 2019-12-01 12:29 | RADIOLOGY REPORT (SQ) ---
EXAM DESCRIPTION: KUB/ABDOMEN (SINGLE VIEW) COMPLETED DATE/TIME: 12/01/2019 12:16 pm REASON FOR STUDY: NG placement COMPARISON: None. NUMBER OF VIEWS: One view. TECHNIQUE: Supine radiographic image of the abdomen acquired. LIMITATIONS: None. FINDINGS: BOWEL GAS PATTERN: Contrast in the colon. No evidence for obstruction. CALCIFICATIONS: No suspicious calcifications. SOFT TISSUES: No gross mass or suggestion of organomegaly. HARDWARE: Nasogastric tube tip is into the stomach. BONES: No acute fracture. No worrisome bone lesions. OTHER: No other significant finding. IMPRESSION: NG tube tip in the stomach. TECHNICAL DOCUMENTATION: JOB ID: [id number] 2010 [employer]- All Rights Reserved Reading location - IP/workstation name: [email or web address]
--- NOTE | 2019-12-01 12:29 | PDOC PROGRESS REPORT ---
Subjective Progress Note for:: 12/01/19 Subjective:: AMISHA ABBOTT is a 54 year old male with past medical history of previous CVA events, TIA, T2 DM, HTN, HLD, COPD, CAD, bipolar disorder who presented to ED with complaints of LUE weakness worse than baseline weakness from previous stroke, dysarthria, word finding difficulty, slurred speech. Patient states the symptoms are consistent with his previous CVAs. He states he takes 81 mg aspirin daily which was given to him by his daughter and endorses full compliance with this. He states he takes all his medications that are given to him by his daughter. He was not a candidate for TPA as his symptoms began at 8:30 AM and he did not present to ED until 4 PM that same day. Symptoms gradually improving on admission. Admitted for further stroke work-up 11/29/2019. No acute events overnight. Saw patient this morning resting in bed comfortably, no apparent distress, patient stating that he has some chronic deficits from previous stroke on left upper and lower extremity but he feels like it is getting worse on this admission. 11/30/2019. No acute events overnight. Patient reports mild improvement of left upper extremity numbness, no changes from left lower extremity, still have left facial droop and dysphagia, MRI, CT, 2D carotid and 2D echo has all been negative for any acute changes, unfortunately patient failed swallow eval yesterday and as per speech therapy did not recommend any p.o. intake until Tuesday when they can repeat the study again. Meanwhile patient is complaining of being extremely hungry and also he is on several medications that could not be crushed, minimal will put an NG tube for medication administration and feeding until Tuesday when speech therapy has reevaluated the patient again. Patient denies any fever, chills, nausea, vomiting, diarrhea, constipation. 12/01/2019. No acute events overnight. Patient reporting mild improvement of his left lower extremity, moderate improvement of left lower extremity numbness, and mild improvement of left facial droop and dysarthria, alert and oriented x3 no apparent distress, denies any fever, chills, nausea, vomiting, diarrhea, constipation or any urinary symptoms. NG tube was placed yesterday feeds had been started but unfortunately accidentally patient removed his NG tube today which will be reinserted. Patient is aware if he failed modified barium swallow on Tuesday he would likely need to have a PEG tube placed and he agrees with the plan. Reason For Visit: ACUTE CVA VS TIA Physical Exam Vital Signs: Temp Pulse Resp BP Pulse Ox 97.8 F 54 L 16 129/71 H 95 12/01/19 09:34 12/01/19 09:34 12/01/19 09:34 12/01/19 09:34 12/01/19 09:34 Intake & Output 11/30/19 12/01/19 12/02/19 06:59 06:59 07:59 Intake Total 60 603 150 Output Total 775 Balance 60 -172 150 Weight 52.8 kg 52.2 kg General appearance: PRESENT: no acute distress, well-developed, well-nourished Head exam: PRESENT: atraumatic, normocephalic Respiratory exam: PRESENT: clear to auscultation roshan. ABSENT: rales, rhonchi, wheezes Cardiovascular exam: PRESENT: RRR. ABSENT: diastolic murmur, rubs, systolic murmur GI/Abdominal exam: PRESENT: normal bowel sounds, soft. ABSENT: distended, guarding, mass, organolmegaly, rebound, tenderness Neurological exam: PRESENT: alert, awake, oriented to person, oriented to place, oriented to time, oriented to situation, CN II-XII grossly intact - Left facial droop. Mild dysarthria.. ABSENT: motor sensory deficit - Left upper extremity strength 5/5, mild dullness to sensation, left lower extremity strength 3/5. Results Laboratory Results: 11/29/19 05:10 11/29/19 05:10 11/28/19 16:18 Troponin I < 0.012 Impressions: Chest X-Ray 11/28/19 00:00 IMPRESSION: Chronic lung changes with no acute cardiopulmonary finding. Head CT 11/28/19 16:11 IMPRESSION: No acute intracranial abnormality. EVIDENCE OF ACUTE STROKE: NO. Head MRI 11/29/19 00:00 IMPRESSION: MINIMAL MICROVASCULAR ISCHEMIC CHANGE. OTHERWISE NORMAL STUDY. EVIDENCE OF ACUTE STROKE: NO. Modified Barium Swallow 11/29/19 00:00 IMPRESSION: LARYNGEAL PENETRATION WITHOUT ASPIRATION. PLEASE SEE SPEECH PATHOLOGIST REPORT FOR OTHER FINDINGS AND RECOMMENDATIONS. Carotid Doppler Study 11/29/19 21:55 IMPRESSION: NO HEMODYNAMICALLY SIGNIFICANT STENOSIS IN THE INTERNAL CAROTID ARTERIES. THE LEFT VERTEBRAL ARTERY IS NOT VISUALIZED. THE VESSEL MAY BE SMALL OR OCCLUDED. RIGHT VERTEBRAL ARTERY ANTEGRADE FLOW. Assessment and Plan - Diagnosis (1) CVA (cerebrovascular accident) Qualifiers: CVA mechanism: unspecified Qualified Code(s): I63.9 - Cerebral infarction, unspecified Is this a current diagnosis for this admission?: Yes Plan: Suspect acute CVA/TIA initially however patient's work-up is all negative. Left lower extremity numbness improving compared to admission. Mild improvement of left facial droop and left lower extremity weakness. Of note patient had history of previous CVA and has had deficits on left upper and lower extremities CT head negative for any acute stroke. MRI brain negative for any acute stroke. 2D carotid negative for any hemodynamically significant stenosis except for left vertebral artery occlusion. 2D echo LVEF WNL. PFO/ASD could not be determined. Please refer to echo report. Continue fall, aspiration and seizure precautions. PT/ST/OT. DAPT. Optimize BP. High intensity statins. Optimize diabetic control. (2) Dysphagia Qualifiers: Dysphagia type: oropharyngeal phase Qualified Code(s): R13.12 - Dysphagia, oropharyngeal phase Is this a current diagnosis for this admission?: Yes Plan: Due to chronic CVA. Failed modified barium swallow eval. Repeat modified barium swallow eval recommended on Tuesday. Possible PEG tube placement if fails modified barium swallow eval again on Tuesday. Possible PEG tube placement has been discussed with patient and he seems to be in agreement. Patient is on multiple p.o. medication including his antipsychotics which could not be crushed and there is no IV or IM forms of them and also patient is diabetic and complaining of being extremely hungry. While patient is waiting to be reevaluated by speech therapy on Tuesday we will start on NG tube for continuing his feeds and medication administration. Patient is in agreement with the plan. Continue NG-tube care. Monitor for aspiration. Note. Not sure if this dysphagia is due to previous stroke or he has tardive dyskinesia oropharyngeal muscles. Patient has been on antipsychotic for several years and stopping them at this point may not reverse side effects. Patient states his dysphagia has been sudden onset which makes tardive dyskinesia less likely. (3) Bipolar disorder Is this a current diagnosis for this admission?: Yes Plan: Restart home meds. Outpatient PCP and psychiatry follow-up. (4) CAD (coronary artery disease) Qualifiers: Associated angina: without angina Is this a current diagnosis for this admission?: Yes Plan: Denies any anginal symptoms. EKG no acute changes. Troponins negative. Continue DAPT, statins, NINA and beta-blockers. (5) COPD (chronic obstructive pulmonary disease) Is this a current diagnosis for this admission?: Yes Plan: Not acutely exacerbated. SPO2 WNL on RA. History of non-oxygen dependent COPD. Restart home meds. Monitor vitals. Outpatient PCP and pulmonology follow-up. (6) Diabetes mellitus type 2 in nonobese Is this a current diagnosis for this admission?: Yes Plan: Well controlled on p.o. meds. Hemoglobin A1c 5.3. Diabetic diet. Accu-Chek. Hypoglycemic protocol. Sliding scale insulin. Hold antidiabetics. Resume it upon discharge.
[2019-12-01] MEDS: ATORVASTATIN CALCIUM 80 MG TABLET NG SCH (21:12)
[2019-12-01] MEDS: TRAZODONE HCL 50 MG TABLET NG SCH (21:12)
[2019-12-01] MEDS: ZOLPIDEM TARTRATE 5 MG TABLET NG SCH (21:13)
[2019-12-02] MEDS: INSULIN LISPRO 100 UNIT/ML 3 ML VIAL SUBCUT SCH ×4 (00:48→18:07)
[2019-12-02] MEDS: GABAPENTIN 300 MG CAPSULE NG SCH ×3 (06:01→22:07)
[2019-12-02] MEDS: BENZTROPINE MESYLATE 1 MG TABLET NG SCH ×3 (06:02→22:07)
[2019-12-02] MEDS: HEPARIN SOD (PORCINE) 5,000 UNIT/ML 1 ML VIAL SUBCUT SCH ×3 (06:04→22:07)
[2019-12-02] MEDS: FAMOTIDINE 20 MG TABLET NG SCH (09:22)
[2019-12-02] MEDS: ASPIRIN 325 MG TABLET NG SCH (09:24)
[2019-12-02] MEDS: OLANZAPINE 5 MG TABLET PO SCH ×2 (09:24→22:07)
[2019-12-02] MEDS: SERTRALINE HCL 50 MG TABLET NG SCH (09:24)
--- NOTE | 2019-12-02 12:01 | PDOC PROGRESS REPORT ---
Subjective Progress Note for:: 12/02/19 Subjective:: AMISHA ABBOTT is a 54 year old male with past medical history of previous CVA events, TIA, T2 DM, HTN, HLD, COPD, CAD, bipolar disorder who presented to ED with complaints of LUE weakness worse than baseline weakness from previous stroke, dysarthria, word finding difficulty, slurred speech. Patient states the symptoms are consistent with his previous CVAs. He states he takes 81 mg aspirin daily which was given to him by his daughter and endorses full compliance with this. He states he takes all his medications that are given to him by his daughter. He was not a candidate for TPA as his symptoms began at 8:30 AM and he did not present to ED until 4 PM that same day. Symptoms gradually improving on admission. Admitted for further stroke work-up 11/29/2019. No acute events overnight. Saw patient this morning resting in bed comfortably, no apparent distress, patient stating that he has some chronic deficits from previous stroke on left upper and lower extremity but he feels like it is getting worse on this admission. 11/30/2019. No acute events overnight. Patient reports mild improvement of left upper extremity numbness, no changes from left lower extremity, still have left facial droop and dysphagia, MRI, CT, 2D carotid and 2D echo has all been negative for any acute changes, unfortunately patient failed swallow eval yesterday and as per speech therapy did not recommend any p.o. intake until Tuesday when they can repeat the study again. Meanwhile patient is complaining of being extremely hungry and also he is on several medications that could not be crushed, minimal will put an NG tube for medication administration and feeding until Tuesday when speech therapy has reevaluated the patient again. Patient denies any fever, chills, nausea, vomiting, diarrhea, constipation. 12/01/2019. No acute events overnight. Patient reporting mild improvement of his left lower extremity, moderate improvement of left lower extremity numbness, and mild improvement of left facial droop and dysarthria, alert and oriented x3 no apparent distress, denies any fever, chills, nausea, vomiting, diarrhea, constipation or any urinary symptoms. NG tube was placed yesterday feeds had been started but unfortunately accidentally patient removed his NG tube today which will be reinserted. Patient is aware if he failed modified barium swallow on Tuesday he would likely need to have a PEG tube placed and he agrees with the plan. 12/02/2019. No acute events overnight. Reporting some improvement of dysphagia, facial droop and left upper extremity numbness and tingling, denies any fever, chills, nausea, vomiting, diarrhea, constipation or any urinary symptoms. NG tube in place, tolerating feeds. Scheduled for modified barium swallow tomorrow. Reason For Visit: ACUTE CVA VS TIA Physical Exam Vital Signs: Temp Pulse Resp BP Pulse Ox 97.6 F 60 16 100/50 L 97 12/02/19 04:20 12/02/19 08:25 12/02/19 08:25 12/02/19 08:25 12/02/19 08:25 Intake & Output 12/01/19 12/02/19 12/03/19 05:59 06:59 06:59 Intake Total 300 Output Total Balance 300 Weight General appearance: PRESENT: no acute distress, well-developed, well-nourished Head exam: PRESENT: atraumatic, normocephalic Respiratory exam: PRESENT: clear to auscultation roshan. ABSENT: rales, rhonchi, wheezes Cardiovascular exam: PRESENT: RRR. ABSENT: diastolic murmur, rubs, systolic murmur GI/Abdominal exam: PRESENT: normal bowel sounds, soft. ABSENT: distended, guarding, mass, organolmegaly, rebound, tenderness Neurological exam: PRESENT: alert, awake, oriented to person, oriented to place, oriented to time, oriented to situation, CN II-XII grossly intact - Facial droop.. ABSENT: motor sensory deficit - Left lower extremity strength 3/5. Results Laboratory Results: 11/29/19 05:10 11/29/19 05:10 11/28/19 16:18 Troponin I < 0.012 Impressions: Chest X-Ray 11/28/19 00:00 IMPRESSION: Chronic lung changes with no acute cardiopulmonary finding. Head CT 11/28/19 16:11 IMPRESSION: No acute intracranial abnormality. EVIDENCE OF ACUTE STROKE: NO. Head MRI 11/29/19 00:00 IMPRESSION: MINIMAL MICROVASCULAR ISCHEMIC CHANGE. OTHERWISE NORMAL STUDY. EVIDENCE OF ACUTE STROKE: NO. Modified Barium Swallow 11/29/19 00:00 IMPRESSION: LARYNGEAL PENETRATION WITHOUT ASPIRATION. PLEASE SEE SPEECH PATHOLOGIST REPORT FOR OTHER FINDINGS AND RECOMMENDATIONS. Carotid Doppler Study 11/29/19 21:55 IMPRESSION: NO HEMODYNAMICALLY SIGNIFICANT STENOSIS IN THE INTERNAL CAROTID ARTERIES. THE LEFT VERTEBRAL ARTERY IS NOT VISUALIZED. THE VESSEL MAY BE SMALL OR OCCLUDED. RIGHT VERTEBRAL ARTERY ANTEGRADE FLOW. KUB X-Ray 12/01/19 00:00 IMPRESSION: NG tube tip in the stomach. Assessment and Plan - Diagnosis (1) CVA (cerebrovascular accident) Qualifiers: CVA mechanism: unspecified Qualified Code(s): I63.9 - Cerebral infarction, unspecified Is this a current diagnosis for this admission?: Yes Plan: Suspect acute CVA/TIA initially however patient's work-up is all negative. Left lower extremity numbness improving compared to admission. Mild improvement of left facial droop and left lower extremity weakness. Of note patient had history of previous CVA and has had deficits on left upper and lower extremities CT head negative for any acute stroke. MRI brain negative for any acute stroke. 2D carotid negative for any hemodynamically significant stenosis except for left vertebral artery occlusion. 2D echo LVEF WNL. PFO/ASD could not be determined. Please refer to echo report. Continue fall, aspiration and seizure precautions. PT/ST/OT. DAPT. Optimize BP. High intensity statins. Optimize diabetic control. (2) Dysphagia Qualifiers: Dysphagia type: oropharyngeal phase Qualified Code(s): R13.12 - Dysphagia, oropharyngeal phase Is this a current diagnosis for this admission?: Yes Plan: Due to chronic CVA. Failed modified barium swallow eval. Repeat modified barium swallow eval recommended on Tuesday. Possible PEG tube placement if fails modified barium swallow eval again on Tuesday. Possible PEG tube placement has been discussed with patient and he seems to be in agreement. Patient is on multiple p.o. medication including his antipsychotics which could not be crushed and there is no IV or IM forms of them and also patient is diabetic and complaining of being extremely hungry. While patient is waiting to be reevaluated by speech therapy on Tuesday we will start on NG tube for continuing his feeds and medication administration. Patient is in agreement with the plan. Continue NG-tube care. Monitor for aspiration. Note. Not sure if this dysphagia is due to previous stroke or he has tardive dyskinesia oropharyngeal muscles. Patient has been on antipsychotic for several years and stopping them at this point may not reverse side effects. Patient states his dysphagia has been sudden onset which makes tardive dyskinesia less likely. (3) Bipolar disorder Is this a current diagnosis for this admission?: Yes Plan: Restart home meds. Outpatient PCP and psychiatry follow-up. (4) CAD (coronary artery disease) Qualifiers: Associated angina: without angina Is this a current diagnosis for this admission?: Yes Plan: Denies any anginal symptoms. EKG no acute changes. Troponins negative. Continue DAPT, statins, NINA and beta-blockers. (5) COPD (chronic obstructive pulmonary disease) Is this a current diagnosis for this admission?: Yes Plan: Not acutely exacerbated. SPO2 WNL on RA. History of non-oxygen dependent COPD. Restart home meds. Monitor vitals. Outpatient PCP and pulmonology follow-up. (6) Diabetes mellitus type 2 in nonobese Is this a current diagnosis for this admission?: Yes Plan: Well controlled on p.o. meds. Hemoglobin A1c 5.3. Diabetic diet. Accu-Chek. Hypoglycemic protocol. Sliding scale insulin. Hold antidiabetics. Resume it upon discharge.
[2019-12-02] MEDS: TRAZODONE HCL 50 MG TABLET NG SCH (22:07)
[2019-12-02] MEDS: ZOLPIDEM TARTRATE 5 MG TABLET NG SCH (22:07)
[2019-12-02] MEDS: ATORVASTATIN CALCIUM 80 MG TABLET NG SCH (22:07)
[2019-12-03] MEDS: INSULIN LISPRO 100 UNIT/ML 3 ML VIAL SUBCUT SCH ×4 (00:31→18:09)
[2019-12-03] MEDS: GABAPENTIN 300 MG CAPSULE NG SCH ×3 (05:27→21:02)
[2019-12-03] MEDS: BENZTROPINE MESYLATE 1 MG TABLET NG SCH ×3 (05:27→21:02)
[2019-12-03] MEDS: HEPARIN SOD (PORCINE) 5,000 UNIT/ML 1 ML VIAL SUBCUT SCH ×3 (05:28→20:59)
[2019-12-03] MEDS: OLANZAPINE 5 MG TABLET PO SCH ×2 (09:05→21:02)
[2019-12-03] MEDS: SERTRALINE HCL 50 MG TABLET NG SCH (09:05)
[2019-12-03] MEDS: ASPIRIN 325 MG TABLET NG SCH (09:05)
[2019-12-03] MEDS: FAMOTIDINE 20 MG TABLET NG SCH (09:05)
--- NOTE | 2019-12-03 10:07 | RADIOLOGY REPORT (SQ) ---
EXAM DESCRIPTION: COOKIE SWALLOW COMPLETED DATE/TIME: 12/03/2019 9:44 am REASON FOR STUDY: dysphagiaCVA, dysphagia, coughing with meals COMPARISON: Modified barium swallow 11/29/2019 TECHNIQUE: Videofluoroscopic swallowing examination was performed in conjunction with speech patholo gy. Videofluoroscopic imaging was obtained and reviewed and these are the findings: RADIATION DOSE: 3 minutes 10 seconds of fluoroscopy was used. 2 images saved to PACS. LIMITATIONS: None FINDINGS: The patient was brought into the fluoro room and placed upright on a modified barium swall ow chair. The patient was then given multiple consistencies mixed with barium to swallow under live fluoroscopic video guidance. According to the Speech Pathologist there was laryngeal penetration and aspiration of thin liquids. Penetration of post swallow residuals. Patient demonstrates a weak swa llow with slow epiglottic excursion, however appears improved from previous study. IMPRESSION: LARYNGEAL PENETRATION WITH ASPIRATION OF THIN LIQUIDS ABOVE. PLEASE SEE SPEECH PATHOL OGIST REPORT FOR OTHER FINDINGS AND RECOMMENDATIONS. COMMENT: Quality ID [id number]: Final reports for procedures using fluoroscopy that document radiation exp osure indices, or exposure time and number of fluorographic images (if radiation exposure indices are not available) TECHNICAL DOCUMENTATION: JOB ID: [id number] 2010 [employer]- All Rights Reserved Reading location - IP/workstation name: [id number]
--- NOTE | 2019-12-03 11:55 | ST Inp Modified Barium Swallow ---
Medical Diagnosis - Medical Diagnoses Medical Diagnosis Description & ICD-10 Code(s): CVA ST Inpatient MBS - General Date: 12/03/19 Date of Onset: 11/28/19 - History History Obtained From: Patient - Pt. reports that he feels like he is gaining more movement in his extremities and that he feels like his swallowing has improved. Reports complying with ice chips for swallowing rehabilitation. -: Medical - Pt. admitted 11/28 for LUE wekaness, dysarthria, word finding difficulties. PMHx includes CVA, TIA, DM, hypertension. Following failed nursing screen seen at bedside for clinical swallow evaluation. Subsequent MBSS on 11/29/2019 revealed severe oropharyngeal dysphagia. Pt currently NPO with NG. Medications: Medications Reviewed Allergies: Refer to medical record - Subjective Current Nutritional Means: NPO Current PO Diet: N/A (NPO) Current Symptoms: Coughing, Wet/gurgly voice Pain: denies pain - Objective Assessment: Upright, Left Lateral - Food Trials Food Trials Used: Thin liquids, [place] thick liquids, Pureed The Patient: Was Able to Self Feed, via spoon, via straw - Assessment Labial Function: Within Normal Limits Lingual Function: Within Normal Limits Mandibular Function: Impaired Dentition: Full Velo-Pharyngeal Function: Not assessed Laryngeal Function: Volitional Cough, Volitional Swallow - Pharyngeal Stage Initiation of Pharyngeal Stage: Delayed Decreased Laryngeal Elevation: Yes Reduced Velo-Pharyngeal Closure: no Reduced Pressure Generation: No Reduced Tongue Base Retraction: Yes Pre-Swallowing Pooling in Valleculae: Mild Pre-Swallowing Pooling in Pyriforms: Mild Reduced Thyro-Hyiod Approximation: Yes Reduced Epiglottic Excursion: Yes Reduced Pharyngeal Peristalsis: Yes Multiple Swallows With: Ineffective Clearance - Multiple swallows able to moderately clear residuals. However, residuals still present. Post Swallow Residuals in Valleculae: Moderate Post Swallow Residuals in Pyriforms: Moderate Post Swallow Residuals: tongue-base Pahryngeal Stage Comments: Pt. continues to present with severe oropharyngeal dysphagia charcterized by delayed swallow initation and reduced elevation. Aspiration on single sips of thin liquid ad penetration on residuals. While epiglottic inversion notably improved from previous MBSS, inversion still impaired. Provided patient with swallowing exercises including sustained ph onation and effortful swallows. Recommend using ice chips to aid in swallowing exercises as needed due to dry oral cavity. Plan to repeat MBSS later this week to determine if improved swallow or if will need more permanent alternative means of nutrition. - Impression/Summary Laryngeal Penetration: Yes, Silent, after swallow Tracheal Aspiration: yes - With thin liquids, cough, during swallow Productive Cough: Yes Effective Clearing: partial clearing Risk of Aspiration: Severe Risk of Nutritional Compromise: Severe - Recommendations NPO: yes Strict Aspitarion Precautions: Yes Dysphagia Therapy with CARBIDER: Inpatient - Provided with swallowing exercises with pt. demonstrating. - Time Total Time: 30 Total Timed Minutes: 30
--- NOTE | 2019-12-03 15:26 | PDOC PROGRESS REPORT ---
Subjective Progress Note for:: 12/03/19 Subjective:: Patient still experiencing significant dysphagia though mildly improved. Denies any other symptoms at this time. Reason For Visit: DYSPHAGIA Physical Exam Vital Signs: Temp Pulse Resp BP Pulse Ox 97.6 F 69 16 132/89 H 98 12/03/19 12:00 12/03/19 12:00 12/03/19 12:00 12/03/19 12:00 12/03/19 12:00 Intake & Output 12/02/19 12/03/19 12/04/19 06:59 06:59 06:59 Intake Total 1589 300 Output Total 675 Balance 914 300 Weight 50.3 kg 50.3 kg General appearance: PRESENT: no acute distress, cooperative Neck exam: ABSENT: JVD Respiratory exam: PRESENT: clear to auscultation roshan, unlabored. ABSENT: tachypnea, wheezes Cardiovascular exam: PRESENT: RRR, +S1, +S2. ABSENT: tachycardia GI/Abdominal exam: PRESENT: normal bowel sounds, soft. ABSENT: rebound, rigid, tenderness Neurological exam: PRESENT: alert, awake, oriented to person, oriented to place, oriented to time Results Laboratory Results: 11/29/19 05:10 11/29/19 05:10 11/28/19 16:18 Troponin I < 0.012 Impressions: Chest X-Ray 11/28/19 00:00 IMPRESSION: Chronic lung changes with no acute cardiopulmonary finding. Head CT 11/28/19 16:11 IMPRESSION: No acute intracranial abnormality. EVIDENCE OF ACUTE STROKE: NO. Head MRI 11/29/19 00:00 IMPRESSION: MINIMAL MICROVASCULAR ISCHEMIC CHANGE. OTHERWISE NORMAL STUDY. EVIDENCE OF ACUTE STROKE: NO. Carotid Doppler Study 11/29/19 21:55 IMPRESSION: NO HEMODYNAMICALLY SIGNIFICANT STENOSIS IN THE INTERNAL CAROTID ARTERIES. THE LEFT VERTEBRAL ARTERY IS NOT VISUALIZED. THE VESSEL MAY BE SMALL OR OCCLUDED. RIGHT VERTEBRAL ARTERY ANTEGRADE FLOW. KUB X-Ray 12/01/19 00:00 IMPRESSION: NG tube tip in the stomach. Modified Barium Swallow 12/03/19 06:00 IMPRESSION: LARYNGEAL PENETRATION WITH ASPIRATION OF THIN LIQUIDS ABOVE. PLEASE SEE SPEECH PATHOLOGIST REPORT FOR OTHER FINDINGS AND RECOMMENDATIONS. Assessment and Plan - Diagnosis (1) CVA (cerebrovascular accident) Qualifiers: CVA mechanism: unspecified Qualified Code(s): I63.9 - Cerebral infarction, unspecified Is this a current diagnosis for this admission?: Yes (2) Dysphagia Qualifiers: Dysphagia type: oropharyngeal phase Qualified Code(s): R13.12 - Dysphagia, oropharyngeal phase Is this a current diagnosis for this admission?: Yes (3) Bipolar disorder Is this a current diagnosis for this admission?: Yes (4) CAD (coronary artery disease) Qualifiers: Associated angina: without angina Is this a current diagnosis for this admission?: Yes (5) COPD (chronic obstructive pulmonary disease) Is this a current diagnosis for this admission?: Yes (6) Diabetes mellitus type 2 in nonobese Is this a current diagnosis for this admission?: Yes - Plan Summary Summary: 12/03/2019 Unfortunately, patient has failed his modified barium swallow study again today which showed very significant aspiration. I have discussed with the speech pathologist who still recommends n.p.o. status but states that patient has shown very good improvement in swallowing and as such as potential to be able to pass the MBSS in about 2 days. As such, patient will continue on the swallowing exercises and we will reattempt modified barium swallow study in 2 days. Should patient fail that study, patient is willing to proceed with PEG tube placement in order to meet caloric needs. In the meantime, will continue with [place]obb[place] enteral feedings. Continue current management for diabetes. Of note, patient's MRI was negative for any acute stroke but his dysphagia likely stems from his prior strokes. - Time Time Spent with patient: Less than 15 minutes
[2019-12-03] MEDS: ATORVASTATIN CALCIUM 80 MG TABLET NG SCH (21:01)
[2019-12-03] MEDS: ZOLPIDEM TARTRATE 5 MG TABLET NG SCH (21:02)
[2019-12-03] MEDS: TRAZODONE HCL 50 MG TABLET NG SCH (21:02)
[2019-12-04] MEDS: INSULIN LISPRO 100 UNIT/ML 3 ML VIAL SUBCUT SCH ×4 (00:37→18:48)
[2019-12-04] MEDS: HEPARIN SOD (PORCINE) 5,000 UNIT/ML 1 ML VIAL SUBCUT SCH ×3 (05:34→21:26)
[2019-12-04] MEDS: BENZTROPINE MESYLATE 1 MG TABLET NG SCH ×3 (06:28→21:30)
[2019-12-04] MEDS: GABAPENTIN 300 MG CAPSULE NG SCH ×3 (06:28→21:30)
[2019-12-04] MEDS: ASPIRIN 325 MG TABLET NG SCH (09:11)
[2019-12-04] MEDS: SERTRALINE HCL 50 MG TABLET NG SCH (09:11)
[2019-12-04] MEDS: OLANZAPINE 5 MG TABLET PO SCH ×2 (09:11→21:29)
[2019-12-04] MEDS: FAMOTIDINE 20 MG TABLET NG SCH (09:12)
--- NOTE | 2019-12-04 16:39 | PDOC PROGRESS REPORT ---
Subjective Progress Note for:: 12/04/19 Subjective:: Patient states that he has been practicing swallowing exercising. Otherwise has no complaints. Still admits that he is willing to pursue PEG tube if he fails the next modified barium swallow. Reason For Visit: DYSPHAGIA Physical Exam Vital Signs: Temp Pulse Resp BP Pulse Ox 97.7 F 80 16 124/66 94 12/04/19 16:08 12/04/19 16:08 12/04/19 16:08 12/04/19 16:08 12/04/19 16:08 Intake & Output 12/03/19 12/04/19 12/05/19 06:59 06:59 06:59 Intake Total 1589 1916 670 Output Total 675 225 Balance 914 1691 670 Weight 50.3 kg 51.3 kg General appearance: PRESENT: no acute distress, cooperative Neck exam: ABSENT: JVD Respiratory exam: PRESENT: unlabored. ABSENT: accessory muscle use, retraction, tachypnea Neurological exam: PRESENT: alert, awake Psychiatric exam: ABSENT: agitated, anxious Results Laboratory Results: 11/29/19 05:10 11/29/19 05:10 11/28/19 16:18 Troponin I < 0.012 Impressions: Chest X-Ray 11/28/19 00:00 IMPRESSION: Chronic lung changes with no acute cardiopulmonary finding. Head CT 11/28/19 16:11 IMPRESSION: No acute intracranial abnormality. EVIDENCE OF ACUTE STROKE: NO. Head MRI 11/29/19 00:00 IMPRESSION: MINIMAL MICROVASCULAR ISCHEMIC CHANGE. OTHERWISE NORMAL STUDY. EVIDENCE OF ACUTE STROKE: NO. Carotid Doppler Study 11/29/19 21:55 IMPRESSION: NO HEMODYNAMICALLY SIGNIFICANT STENOSIS IN THE INTERNAL CAROTID ARTERIES. THE LEFT VERTEBRAL ARTERY IS NOT VISUALIZED. THE VESSEL MAY BE SMALL OR OCCLUDED. RIGHT VERTEBRAL ARTERY ANTEGRADE FLOW. KUB X-Ray 12/01/19 00:00 IMPRESSION: NG tube tip in the stomach. Modified Barium Swallow 12/03/19 06:00 IMPRESSION: LARYNGEAL PENETRATION WITH ASPIRATION OF THIN LIQUIDS ABOVE. PLEASE SEE SPEECH PATHOLOGIST REPORT FOR OTHER FINDINGS AND RECOMMENDATIONS. Assessment and Plan - Diagnosis (1) CVA (cerebrovascular accident) Qualifiers: CVA mechanism: unspecified Qualified Code(s): I63.9 - Cerebral infarction, unspecified Is this a current diagnosis for this admission?: Yes (2) Dysphagia Qualifiers: Dysphagia type: oropharyngeal phase Qualified Code(s): R13.12 - Dysphagia, oropharyngeal phase Is this a current diagnosis for this admission?: Yes (3) Bipolar disorder Is this a current diagnosis for this admission?: Yes (4) CAD (coronary artery disease) Qualifiers: Associated angina: without angina Is this a current diagnosis for this admission?: Yes (5) COPD (chronic obstructive pulmonary disease) Is this a current diagnosis for this admission?: Yes (6) Diabetes mellitus type 2 in nonobese Is this a current diagnosis for this admission?: Yes - Plan Summary Summary: 12/03/2019 Unfortunately, patient has failed his modified barium swallow study again today which showed very significant aspiration. I have discussed with the speech pathologist who still recommends n.p.o. status but states that patient has shown very good improvement in swallowing and as such as potential to be able to pass the MBSS in about 2 days. As such, patient will continue on the swallowing exercises and we will reattempt modified barium swallow study in 2 days. Should patient fail that study, patient is willing to proceed with PEG tube placement in order to meet caloric needs. In the meantime, will continue with Dobbhoff e nteral feedings. Continue current management for diabetes. Of note, patient's MRI was negative for any acute stroke but his dysphagia likely stems from his prior strokes. 12/04/2019 Discussed with speech pathologist today who recommends allowing patient to proceed with swallowing exercises today and tomorrow and then pursuing another modified barium swallow study on . We will proceed with this plan. Continue NG tube feedings for now. Continue other management for his COPD and bipolar. - Time Time Spent with patient: Less than 15 minutes
[2019-12-04] MEDS: TRAZODONE HCL 50 MG TABLET NG SCH (21:29)
[2019-12-04] MEDS: ZOLPIDEM TARTRATE 5 MG TABLET NG SCH (21:29)
[2019-12-04] MEDS: ATORVASTATIN CALCIUM 80 MG TABLET NG SCH (21:30)
[2019-12-05] MEDS: INSULIN LISPRO 100 UNIT/ML 3 ML VIAL SUBCUT SCH ×4 (00:28→18:00)
[2019-12-05] MEDS: HEPARIN SOD (PORCINE) 5,000 UNIT/ML 1 ML VIAL SUBCUT SCH ×3 (05:34→21:55)
[2019-12-05] MEDS: BENZTROPINE MESYLATE 1 MG TABLET NG SCH ×3 (06:06→21:55)
[2019-12-05] MEDS: GABAPENTIN 300 MG CAPSULE NG SCH ×3 (06:07→21:54)
[2019-12-05] MEDS: FAMOTIDINE 20 MG TABLET NG SCH (09:52)
[2019-12-05] MEDS: OLANZAPINE 5 MG TABLET PO SCH ×2 (09:52→21:55)
[2019-12-05] MEDS: ASPIRIN 325 MG TABLET NG SCH (09:52)
[2019-12-05] MEDS: SERTRALINE HCL 50 MG TABLET NG SCH (09:52)
--- NOTE | 2019-12-05 13:02 | PDOC PROGRESS REPORT ---
Subjective Progress Note for:: 12/05/19 Subjective:: Patient has no complaints today. Denies shortness of breath. Reason For Visit: DYSPHAGIA Physical Exam Vital Signs: Temp Pulse Resp BP Pulse Ox 98.7 F 68 16 113/48 L 99 12/05/19 07:41 12/05/19 08:00 12/05/19 08:00 12/05/19 08:00 12/05/19 08:00 Intake & Output 12/04/19 12/05/19 12/06/19 06:59 06:59 06:59 Intake Total 1916 1887 20 Output Total 225 Balance 1691 1886 Weight 51.3 kg 51 kg General appearance: PRESENT: no acute distress, cooperative Neurological exam: PRESENT: alert, awake, oriented to person, oriented to place Results Laboratory Results: 11/29/19 05:10 11/29/19 05:10 11/28/19 16:18 Troponin I < 0.012 Impressions: Chest X-Ray 11/28/19 00:00 IMPRESSION: Chronic lung changes with no acute cardiopulmonary finding. Head CT 11/28/19 16:11 IMPRESSION: No acute intracranial abnormality. EVIDENCE OF ACUTE STROKE: NO. Head MRI 11/29/19 00:00 IMPRESSION: MINIMAL MICROVASCULAR ISCHEMIC CHANGE. OTHERWISE NORMAL STUDY. EVIDENCE OF ACUTE STROKE: NO. Carotid Doppler Study 11/29/19 21:55 IMPRESSION: NO HEMODYNAMICALLY SIGNIFICANT STENOSIS IN THE INTERNAL CAROTID ARTERIES. THE LEFT VERTEBRAL ARTERY IS NOT VISUALIZED. THE VESSEL MAY BE SMALL OR OCCLUDED. RIGHT VERTEBRAL ARTERY ANTEGRADE FLOW. KUB X-Ray 12/01/19 00:00 IMPRESSION: NG tube tip in the stomach. Modified Barium Swallow 12/03/19 06:00 IMPRESSION: LARYNGEAL PENETRATION WITH ASPIRATION OF THIN LIQUIDS ABOVE. PLEASE SEE SPEECH PATHOLOGIST REPORT FOR OTHER FINDINGS AND RECOMMENDATIONS. Assessment and Plan - Diagnosis (1) CVA (cerebrovascular accident) Qualifiers: CVA mechanism: unspecified Qualified Code(s): I63.9 - Cerebral infarction, unspecified Is this a current diagnosis for this admission?: Yes (2) Dysphagia Qualifiers: Dysphagia type: oropharyngeal phase Qualified Code(s): R13.12 - Dysphagia, oropharyngeal phase Is this a current diagnosis for this admission?: Yes (3) Bipolar disorder Is this a current diagnosis for this admission?: Yes (4) CAD (coronary artery disease) Qualifiers: Associated angina: without angina Is this a current diagnosis for this admission?: Yes (5) COPD (chronic obstructive pulmonary disease) Is this a current diagnosis for this admission?: Yes (6) Diabetes mellitus type 2 in nonobese Is this a current diagnosis for this admission?: Yes - Plan Summary Summary: 12/03/2019 Unfortunately, patient has failed his modified barium swallow study again today which showed very significant aspiration. I have discussed with the speech pathologist who still recommends n.p.o. status but states that patient has shown very good improvement in swallowing and as such as potential to be able to pass the MBSS in about 2 days. As such, patient will continue on the swallowing exercises and we will reattempt modified barium swallow study in 2 days. Should patient fail that study, patient is willing to proceed with PEG tube placement in order to meet caloric needs. In the meantime, will continue with Dobbhoff enteral feedings. Continue current management for diabetes. Of note, patient's MRI was negative for any acute stroke but his dysphagia likely stems from his prior strokes. 12/04/2019 Discussed with speech pathologist today who recommends allowing patient to proceed with swallowing exercises today and tomorrow and then pursuing another modified barium swallow study on . We will proceed with this plan. Continue NG tube feedings for now. Continue other management for his COPD and bipolar. 12/05/2019 Patient continues with swallowing exercises. Modified barium swallow study scheduled for tomorrow morning. - Time Time Spent with patient: Less than 15 minutes
--- NOTE | 2019-12-05 19:57 | RADIOLOGY REPORT (SQ) ---
EXAM DESCRIPTION: KUB/ABDOMEN (SINGLE VIEW) COMPLETED DATE/TIME: 12/05/2019 7:48 pm REASON FOR STUDY: NG tube placement COMPARISON: 12/01/2019 NUMBER OF VIEWS: One view. TECHNIQUE: Supine radiographic image of the abdomen acquired. LIMITATIONS: None. FINDINGS: BOWEL GAS PATTERN: Nonobstructive gas pattern. There is large amount retained contrast in the colon. CALCIFICATIONS: No suspicious calcifications. SOFT TISSUES: No gross mass or suggestion of organomegaly. HARDWARE: NG tube extends to the greater curvature of the stomach. BONES: No acute fracture. No worrisome bone lesions. OTHER: No other significant finding. IMPRESSION: NG tube placement as described. TECHNICAL DOCUMENTATION: JOB ID: [id number] 2010 [employer]- All Rights Reserved Reading location - IP/workstation name: [email or web address]
[2019-12-05] MEDS: TRAZODONE HCL 50 MG TABLET NG SCH (21:54)
[2019-12-05] MEDS: ZOLPIDEM TARTRATE 5 MG TABLET NG SCH (21:54)
[2019-12-05] MEDS: ATORVASTATIN CALCIUM 80 MG TABLET NG SCH (21:55)
[2019-12-06] MEDS: INSULIN LISPRO 100 UNIT/ML 3 ML VIAL SUBCUT SCH ×4 (00:30→18:48)
[2019-12-06] MEDS: HEPARIN SOD (PORCINE) 5,000 UNIT/ML 1 ML VIAL SUBCUT SCH ×3 (05:42→22:38)
[2019-12-06] MEDS: BENZTROPINE MESYLATE 1 MG TABLET NG SCH ×3 (05:42→22:20)
[2019-12-06] MEDS: GABAPENTIN 300 MG CAPSULE NG SCH ×3 (05:42→22:20)
[2019-12-06] MEDS ORDERED: ACETAMINOPHEN SOLN 325 MG/10.15 ML UDCUP NG PRN (07:19)
--- NOTE | 2019-12-06 10:36 | RADIOLOGY REPORT (SQ) ---
EXAM DESCRIPTION: COOKIE SWALLOW COMPLETED DATE/TIME: 12/06/2019 9:27 am REASON FOR STUDY: Evaluation of Dysphagia CVA, aspiration COMPARISON: Cookie swallows 12/03/2019 and 11/29/2019. TECHNIQUE: Videofluoroscopic swallowing examination was performed in conjunction with speech patholo gy. Videofluoroscopic imaging was obtained and reviewed and these are the findings: RADIATION DOSE: 3 minutes 7 seconds of fluoroscopy was used. 1 images saved to PACS. LIMITATIONS: None FINDINGS: The patient was brought into the fluoro room and placed upright on a modified barium swall ow chair. The patient was then given multiple consistencies mixed with barium to swallow under live fluoroscopic video guidance. According to the Speech Pathologist there was laryngeal penetration see n. No aspiration identified although suspected with the thin liquids. Patient has shown improvement in swallowing function as compared to previous procedures. IMPRESSION: LARYNGEAL PENETRATION. TRACE ASPIRATION OF THIN LIQUIDS SUSPECTED BUT NOT SEEN. PLEASE SEE SPEECH PATHOLOGIST REPORT FOR OTHER FINDINGS AND RECOMMENDATIONS. COMMENT: Quality ID [id number]: Final reports for procedures using fluoroscopy that document radiation exp osure indices, or exposure time and number of fluorographic images (if radiation exposure indices are not available) TECHNICAL DOCUMENTATION: JOB ID: [id number] 2010 [employer]- All Rights Reserved Reading location - IP/workstation name: [email or web address]
[2019-12-06] MEDS: OLANZAPINE 5 MG TAB.RAPDIS NG SCH ×2 (11:01→22:20)
[2019-12-06] MEDS: FAMOTIDINE 20 MG TABLET NG SCH (11:01)
[2019-12-06] MEDS: ASPIRIN 325 MG TABLET NG SCH (11:02)
[2019-12-06] MEDS: SERTRALINE HCL 50 MG TABLET NG SCH (11:02)
--- NOTE | 2019-12-06 11:25 | ST Inp Modified Barium Swallow ---
Medical Diagnosis - Medical Diagnoses Medical Diagnosis Description & ICD-10 Code(s): CVA, dysphagia - ICD-10 Tx Diagnosis Coding (1) CVA (cerebrovascular accident) ICD-10 Code(s): I63.9 - CEREBRAL INFARCTION, UNSPECIFIED (2) Dysphagia ICD-10 Code(s): R13.10 - DYSPHAGIA, UNSPECIFIED ST [place] [facility] [place] Date: 12/06/19 - History Medications: Medications Reviewed Allergies: Refer to medical record - Subjective Current Nutritional Means: NG Current PO Diet: N/A (NPO) Current Symptoms: Aspiration Pain: Patient reports - headache, no visible signs of pain - Objective Assessment: Upright, Left Lateral - Food Trials Food Trials Used: Thin liquids, [place]-thickened liquids, [place] thick liquids, Pureed The Patient: Required Assist - Assessment Labial Function: Within Functional Limits Lingual Function: Within Functional Limits Velo-Pharyngeal Function: Unremarkable - Pharyngeal Stage Initiation of Pharyngeal Stage: Delayed - bolus entered valleculae into pyriform prior to swallow initiation Reduced Pressure Generation: Yes Reduced Tongue Base Retraction: Yes Pre-Swallowing Pooling in Valleculae: Moderate Pre-Swallowing Pooling in Pyriforms: Mild Post Swallow Residuals in Valleculae: Moderate Post Swallow Residuals in Pyriforms: Mild Post Swallow Residuals: throughout pharynx Pahryngeal Stage Comments: Patient demonstrates overall discoordinated swallow, characterized by delay in swallow reflex, decreased pharyngeal squeeze. This resulted in significant pharyngeal residue with all trial textures, and penetration with liquids, as well as penetration of pharyngeal residue. No aspiration was observed, however, patient is at high risk of aspiration due to nature of swallowing deficits. While patient continues to present with severe pharyngeal dysphagia, this is improved over his last study, as residue is now not as significiant, and airway appears better protected. - Impression/Summary Laryngeal Penetration: Yes Patient Presents With: Pharyngeal stage dysph., Severe Risk of Aspiration: Severe - Recommendations NPO: yes, therapeutic trials - ice chips and smooth puree trials Strict Aspitarion Precautions: Yes Dysphagia Therapy with SAMPLE BODY BUILDER: Yes - plan to treat 3x next week for dysphagia to address timing of the swallow, and pharyngeal constriction. Other Recommendations: Patient has shown improvement with swallow function, however, is still not adequate for resuming PO diet. Recommend continued dysphagia treatment with longer term form of alternative nutrition/hydration. - Time Total Time: 30 Total Timed Minutes: 30
--- NOTE | 2019-12-06 12:52 | PDOC PROGRESS REPORT ---
Subjective Progress Note for:: 12/06/19 Subjective:: Unfortunately, patient feels his modified barium swallow again today. He is disappointed but willing now to go for the PEG tube placement. Reason For Visit: DYSPHAGIA Physical Exam Vital Signs: Temp Pulse Resp BP Pulse Ox 98.3 F 73 16 115/64 95 12/06/19 12:03 12/06/19 12:03 12/06/19 12:03 12/06/19 12:03 12/06/19 12:03 Intake & Output 12/05/19 12/06/19 12/07/19 06:59 06:59 06:59 Intake Total 1887 1402 335 Balance 1887 1402 335 Weight 51 kg 51.3 kg General appearance: PRESENT: no acute distress, cooperative Eye exam: ABSENT: scleral icterus Mouth exam: PRESENT: neck supple Neck exam: ABSENT: JVD Respiratory exam: PRESENT: symmetrical, unlabored. ABSENT: accessory muscle use, retraction, tachypnea GI/Abdominal exam: PRESENT: normal bowel sounds, soft. ABSENT: rebound, rigid, tenderness Extremities exam: ABSENT: calf tenderness Musculoskeletal exam: PRESENT: ambulatory Neurological exam: PRESENT: alert, awake, oriented to person, oriented to place, oriented to time Psychiatric exam: ABSENT: agitated, anxious Focused psych exam: ABSENT: pressured speech Skin exam: ABSENT: jaundice Results Laboratory Results: 11/29/19 05:10 11/29/19 05:10 11/28/19 16:18 Troponin I < 0.012 Impressions: Chest X-Ray 11/28/19 00:00 IMPRESSION: Chronic lung changes with no acute cardiopulmonary finding. Head CT 11/28/19 16:11 IMPRESSION: No acute intracranial abnormality. EVIDENCE OF ACUTE STROKE: NO. Head MRI 11/29/19 00:00 IMPRESSION: MINIMAL MICROVASCULAR ISCHEMIC CHANGE. OTHERWISE NORMAL STUDY. EVIDENCE OF ACUTE STROKE: NO. Carotid Doppler Study 11/29/19 21:55 IMPRESSION: NO HEMODYNAMICALLY SIGNIFICANT STENOSIS IN THE INTERNAL CAROTID ARTERIES. THE LEFT VERTEBRAL ARTERY IS NOT VISUALIZED. THE VESSEL MAY BE SMALL OR OCCLUDED. RIGHT VERTEBRAL ARTERY ANTEGRADE FLOW. KUB X-Ray 12/05/19 00:00 IMPRESSION: NG tube placement as described. Modified Barium Swallow 12/06/19 00:00 IMPRESSION: LARYNGEAL PENETRATION. TRACE ASPIRATION OF THIN LIQUIDS SUSPECTED BUT NOT SEEN. PLEASE SEE SPEECH PATHOLOGIST REPORT FOR OTHER FINDINGS AND RECOMMENDATIONS. Assessment and Plan - Diagnosis (1) CVA (cerebrovascular accident) Qualifiers: CVA mechanism: unspecified Qualified Code(s): I63.9 - Cerebral infarction, unspecified Is this a current diagnosis for this admission?: Yes (2) Dysphagia Qualifiers: Dysphagia type: oropharyngeal phase Qualified Code(s): R13.12 - Dysphagia, oropharyngeal phase Is this a current diagnosis for this admission?: Yes (3) Bipolar disorder Is this a current diagnosis for this admission?: Yes (4) CAD (coronary artery disease) Qualifiers: Associated angina: without angina Is this a current diagnosis for this admission?: Yes (5) COPD (chronic obstructive pulmonary disease) Is this a current diagnosis for this admission?: Yes (6) Diabetes mellitus type 2 in nonobese Is this a current diagnosis for this admission?: Yes - Plan Summary Summary: 12/03/2019 Unfortunately, patient has failed his modified barium swallow study again today which showed very significant aspiration. I have discussed with the speech pathologist who still recommends n.p.o. status but states that patient has shown very good improvement in swallowing and as such as potential to be able to pass the MBSS in about 2 days. As such, patient will continue on the swallowing exercises and we will reattempt modified barium swallow study in 2 days. Should patient fail that study, patient is willing to proceed with PEG tube placement in order to meet caloric needs. In the meantime, will continue with Dobbhoff enteral feedings. Continue current management for diabetes. Of note, patient's MRI was negative for any acute stroke but his dysphagia likely stems from his prior strokes. 12/04/2019 Discussed with speech pathologist today who recommends allowing patient to proceed with swallowing exercises today and tomorrow and then pursuing another modified barium swallow study on . We will proceed with this plan. Continue NG tube feedings for now. Continue other management for his COPD and bipolar. 12/05/2019 Patient continues with swallowing exercises. Modified barium swallow study scheduled for tomorrow morning. 12/06/2019 Unfortunately, patient has failed his modified barium swallow study again today. Discussed with speech pathologist who is recommending proceeding with longer term enteral feeding placement however patient continues to work to see if the swallowing improves. I will go ahead and plan for PEG tube placement. Continue aspirin and statin. COPD seems to be at baseline and not acutely exacerbated. - Time Time Spent with patient: Less than 15 minutes
[2019-12-06 13:53] LABS: HEMOGLOBIN 12.4 g/dL (13.5-17.0); MEAN CORPUSCULAR HEMOGLOBIN 25.9 pg (27.0-33.4); MEAN CORPUSCULAR HGB CONC 33.5 g/dL (32.0-36.0); MEAN CORPUSCULAR VOLUME 78 fl (80-97); PLATELET COUNT 210 10^3/uL (150-450); RED BLOOD COUNT 4.78 10^6/uL (4.35-5.55); RED CELL DISTRIBUTION WIDTH 14.1 % (11.5-14.0); WHITE BLOOD COUNT 9.2 10^3/uL (4.0-10.5)
[2019-12-06 14:15] LABS: ALBUMIN 3.9 g/dL (3.5-5.0); ALKALINE PHOSPHATASE 79 U/L (38-126); ANION GAP 12 (5-19); ASPARTATE AMINO TRANSFERASE 18 U/L (17-59); BILIRUBIN,DIRECT 0.3 mg/dL (0.0-0.4); BILIRUBIN,TOTAL 0.4 mg/dL (0.2-1.3); BLOOD UREA NITROGEN 19 mg/dL (7-20); CALCIUM 9.9 mg/dL (8.4-10.2); CARBON DIOXIDE 31 mmol/L (22-30); CHLORIDE 96 mmol/L (98-107); GLUCOSE 101 mg/dL (75-110); TOTAL PROTEIN 7.4 g/dL (6.3-8.2)
--- NOTE | 2019-12-06 16:34 | PDOC CONSULTATION ---
Consultation Consult Date: 12/06/19 Attending physician:: SAUL GARCIA Provider Consulted: DAI LEW Consult reason:: PEG placement History of Present Illness Admission Date/PCP: 12/02/19 15:51 BASHIR KELLY History of Present Illness: AMISHA ABBOTT is a 54 year old male Admitted to the hospitalist service for neurologic dysfunction. 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 He is failed multiple swallowing studies. He is now being fed via nasogastric tube. Surgery was consulted for PEG tube placement. Patient is receptive to the procedure. Past Medical History Cardiac Medical History: Reports: Coronary Artery Disease, Hyperlipidema, Hypertension Denies: Congestive Heart Failure, Myocardial Infarction Pulmonary Medical History: Reports: Chronic Obstructive Pulmonary Disease (COPD), Pneumonia Denies: Asthma, Bronchitis, Tuberculosis Neurological Medical History: Denies: Seizures Renal/ Medical History: Denies: End Stage Renal Disease GI Medical History: Reports: Gastroesophageal Reflux Disease Denies: Cirrhosis Musculoskeltal Medical History: Reports: Arthritis Psychiatric Medical History: Reports: Bipolar Disorder, Depression Hematology: Reports: Anemia Denies: Bleeding Tendencies Past Surgical History Past Surgical History: Reports: Herniorrhaphy - Hernia repair x2 Social History Lives with: Family Smoking Status: Current Some Day Smoker Electronic Cigarette use?: No Frequency of Alcohol Use: None Hx Recreational Drug Use: No Drugs: None Hx Prescription Drug Abuse: No - Advance Directive Resuscitation Status: Full Code Family History Family History: None, Reviewed & Not Pertinent, COPD Parental Family History Reviewed: No Children Family History Reviewed: No Sibling(s) Family History Reviewed.: No Medication/Allergy Home Medications: Benztropine Mesylate [Benztropine Mesylate 2 mg Tablet] 2 mg PO Q8 08/29/17 Metformin HCl [Glucophage 500 mg Tablet] 500 mg PO BIDBS 08/29/17 Ranitidine HCl [Zantac 150 mg Tablet] 300 mg PO DAILY 08/29/17 Simvastatin [Zocor 40 mg Tablet] 40 mg PO QHS 08/29/17 Trazodone HCl [Desyrel] 300 mg PO QHS 08/29/17 Eszopiclone [Lunesta] 2 mg PO QHS 02/24/19 Sertraline HCl [Zoloft 50 mg Tablet] 50 mg PO DAILY 02/24/19 Valbenazine Tosylate [Ingrezza] 80 mg PO DAILY 02/24/19 Ziprasidone HCl [Geodon 60 Mg Capsule] 60 mg PO Q12 02/24/19 Cholecalciferol (Vitamin D3) [Vitamin D3] 50,000 unit PO Q7D 11/28/19 Aspirin [Ecotrin 81 mg EC Tablet] 81 mg PO DAILY 11/29/19 Gabapentin [Neurontin] 600 mg PO Q8 11/29/19 Allergies/Adverse Reactions: varenicline tartrate [From Chantix] Allergy (Unknown, Verified 11/28/19 16:09) amoxicillin Allergy (Verified 11/28/19 16:09) Penicillins Allergy (Verified 11/28/19 16:09) Review of Systems Constitutional: PRESENT: as per HPI Eyes: PRESENT: other - Disconjugate gaze Nose, Mouth, and Throat: PRESENT: other - Repetitive oral pharyngeal dysfunction, dysphasia Respiratory: PRESENT: other - COPD; current smoker Gastrointestinal: PRESENT: other - As above Physical Exam Vital Signs: Temp Pulse Resp BP Pulse Ox 98.3 F 73 16 115/64 95 12/06/19 12:03 12/06/19 12:03 12/06/19 12:03 12/06/19 12:03 12/06/19 12:03 Intake & Output 12/05/19 12/06/19 12/07/19 06:59 06:59 06:59 Intake Total 1887 1402 665 Balance 1887 1402 665 Weight 51 kg 51.3 kg 51.3 kg General appearance: PRESENT: no acute distress Eye exam: PRESENT: other - Disconjugate gaze Mouth exam: PRESENT: dry mucosa Teeth exam: PRESENT: poor dentation Respiratory exam: PRESENT: rhonchi Cardiovascular exam: PRESENT: RRR Pulses: PRESENT: normal carotid pulses, normal femoral pulses GI/Abdominal exam: PRESENT: other - Soft, nontender no peritoneal signs no rigidity Rectal exam: PRESENT: deferred Musculoskeletal exam: PRESENT: other - Incompletely assessed while patient in supine position Neurological exam: PRESENT: oriented to person, oriented to place, oriented to time, oriented to situation Psychiatric exam: PRESENT: appropriate affect Results Laboratory Results: 12/06/19 13:43 12/06/19 13:43 12/06/19 12/06/19 13:43 13:43 WBC 9.2 RBC 4.78 Hgb 12.4 L Hct 37.0 L MCV 78 L MCH 25.9 L MCHC 33.5 RDW 14.1 H Plt Count 210 Sodium 138.7 Potassium 4.0 Chloride 96 L Carbon Dioxide 31 H Anion Gap 12 BUN 19 Creatinine 0.99 Est GFR ( Amer) > 60 Glucose 101 Calcium 9.9 Magnesium 1.7 Total Bilirubin 0.4 AST 18 Alkaline Phosphatase 79 Total Protein 7.4 Albumin 3.9 11/28/19 16:18 Troponin I < 0.012 Impressions: Chest X-Ray 11/28/19 00:00 IMPRESSION: Chronic lung changes with no acute cardiopulmonary finding. Head CT 11/28/19 16:11 IMPRESSION: No acute intracranial abnormality. EVIDENCE OF ACUTE STROKE: NO. Head MRI 11/29/19 00:00 IMPRESSION: MINIMAL MICROVASCULAR ISCHEMIC CHANGE. OTHERWISE NORMAL STUDY. EVIDENCE OF ACUTE STROKE: NO. Carotid Doppler Study 11/29/19 21:55 IMPRESSION: NO HEMODYNAMICALLY SIGNIFICANT STENOSIS IN THE INTERNAL CAROTID ARTERIES. THE LEFT VERTEBRAL ARTERY IS NOT VISUALIZED. THE VESSEL MAY BE SMALL OR OCCLUDED. RIGHT VERTEBRAL ARTERY ANTEGRADE FLOW. KUB X-Ray 12/05/19 00:00 IMPRESSION: NG tube placement as described. Modified Barium Swallow 12/06/19 00:00 IMPRESSION: LARYNGEAL PENETRATION. TRACE ASPIRATION OF THIN LIQUIDS SUSPECTED BUT NOT SEEN. PLEASE SEE SPEECH PATHOLOGIST REPORT FOR OTHER FINDINGS AND RECOMMENDATIONS. 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 Alternative feeding source recommended. Recommendations 1. We will proceed with feeding tube placement, PEG, tomorrow, by Dr. Shields; patient is agreement to proceed. 2. We will keep n.p.o. after midnight, and hold all anticoagulation. (2) Smoker Is this a current diagnosis for this admission?: Yes (3) CVA (cerebrovascular accident) Qualifiers: CVA mechanism: unspecified Qualified Code(s): I63.9 - Cerebral infarction, unspecified Is this a current diagnosis for this admission?: Yes (4) Bipolar disorder Is this a current diagnosis for this admission?: Yes (5) CAD (coronary artery disease) Qualifiers: Associated angina: without angina Is this a current diagnosis for this admission?: Yes (6) COPD (chronic obstructive pulmonary disease) Is this a current diagnosis for this admission?: Yes - Time Time Spent: 30 to 50 Minutes Smoking Cessation Education: 3 to 10 minutes Medications reviewed and adjusted accordingly: Yes - Inpatient Certification Based on my medical assessment, after consideration of the patient's comorbidities, presenting symptoms, or acuity I expect that the services needed warrant INPATIENT care.: Yes I certify that my determination is in accordance with my understanding of Medicare's requirements for reasonable and necessary INPATIENT services [42 CFR 412.3e].: Yes Medical Necessity: Need For IV Fluids, Need for Surgery
[2019-12-06] MEDS: ATORVASTATIN CALCIUM 80 MG TABLET NG SCH (22:20)
[2019-12-06] MEDS: TRAZODONE HCL 50 MG TABLET NG SCH (22:20)
[2019-12-07] MEDS: INSULIN LISPRO 100 UNIT/ML 3 ML VIAL SUBCUT SCH ×5 (00:51→23:58)
[2019-12-07] MEDS: HEPARIN SOD (PORCINE) 5,000 UNIT/ML 1 ML VIAL SUBCUT SCH ×3 (05:44→22:03)
[2019-12-07] MEDS: GABAPENTIN 300 MG CAPSULE NG SCH ×3 (05:44→22:03)
[2019-12-07] MEDS: BENZTROPINE MESYLATE 1 MG TABLET NG SCH ×3 (05:44→22:04)
[2019-12-07] MEDS: OLANZAPINE 5 MG TAB.RAPDIS NG SCH ×2 (10:17→22:04)
[2019-12-07] MEDS: SERTRALINE HCL 50 MG TABLET NG SCH (10:17)
[2019-12-07] MEDS: ASPIRIN 325 MG TABLET NG SCH (11:19)
[2019-12-07] MEDS: FAMOTIDINE 20 MG TABLET NG SCH (11:19)
[2019-12-07] MEDS ORDERED: NALOXONE HCL INJ/PF 0.4 MG/1 ML SDV ONE (13:35)
[2019-12-07] MEDS ORDERED: FLUMAZENIL INJ 0.5 MG/5 ML VIAL ONE (13:35)
[2019-12-07] MEDS ORDERED: EPINEPHRINE INJ 1 MG/10 ML DISP.SYRIN ONE (13:35)
[2019-12-07] MEDS ORDERED: DIPHENHYDRAMINE HCL 50 MG/ML VIAL ONE (13:35)
[2019-12-07] MEDS ORDERED: ONDANSETRON HCL INJ/PF 4 MG/2 ML SDV ONE (13:35)
[2019-12-07] MEDS ORDERED: GLUCAGON,HUMAN RECOMB 1 MG INJ ONE (13:36)
[2019-12-07] MEDS: MIDAZOLAM 2 MG/2 ML INJ ONE ×2 (13:51→13:55)
[2019-12-07] MEDS: FENTANYL CITRATE INJ/PF 100 MCG/2 ML AMPUL ONE ×2 (13:53→14:00)
--- NOTE | 2019-12-07 15:34 | Operative Report ---
Nonrecallable Operative Report DATE OF SURGERY: 12/07/19 PREOPERATIVE DIAGNOSIS: aspiration, hx of cva POSTOPERATIVE DIAGNOSIS: aspiration, hx cva OPERATION: percutaneous endoscopic gastrostomy tube SURGEON: ISAIAS PRESLEY ANESTHESIA: Moderate Sedation TISSUE REMOVED OR ALTERED: none COMPLICATIONS: None ESTIMATED BLOOD LOSS: 5cc INTRAOPERATIVE FINDINGS: see note PROCEDURE: Patient's procedure was done in the endoscopy suite. After appropriate timeout and site verification the procedure commenced. The Olympus gastroscope was passed into the posterior pharynx and down the esophagus to the GE junction. The GE junction was examined appeared to be normal the scope was then passed into the antrum were able to intubate the pylorus and examined the duodenum which also appeared to be normal. As we withdrew the scope we retroflexed the scope in the J maneuver and identified the GE junction there was no obvious hiatal hernia. We then commenced the percutaneous gastrostomy portion of the procedure. Stomach was transilluminated on the anterior abdominal wall of the abdomen in the left upper quadrant. The area in the left upper quadrant was was prepped and draped. It was anesthetized with 1% lidocaine plain. A small transverse incision was made with a 15 blade and the 18-gauge needle was passed into to the stomach under direct vision with the Endo endoscope. Through the needle we passed the wire. The wire was grasped with the endoscope and pulled out through the mouth. The needle was removed. The wire was then attached to the percutaneous gastrostomy tube which was pulled in a retrograde fashion through the posterior pharynx into the stomach and then out the anterior abdominal wall. We then rescoped the patient and confirm good abutment of the PEG mushroom to the anterior abdominal wall. It was then fixed in place with the retention clip was applied with a kit and sewn to the skin with 3 stitches of 2-0 nylon suture. A sterile dressing was applied. The scope was then removed and this completed the procedure.
--- NOTE | 2019-12-07 16:05 | PDOC PROGRESS REPORT ---
Subjective Progress Note for:: 12/07/19 Subjective:: Time of encounter was this morning. Patient ready for PEG tube placement today. Has no new complaints. Reason For Visit: DYSPHAGIA Physical Exam Vital Signs: Temp Pulse Resp BP Pulse Ox 99.3 F 71 16 128/70 H 99 12/07/19 13:25 12/07/19 15:00 12/07/19 14:30 12/07/19 14:30 12/07/19 14:30 Intake & Output 12/06/19 12/07/19 12/08/19 06:59 06:59 06:59 Intake Total 1402 1185 500 Balance 1402 1185 500 Weight 51.3 kg 50.9 kg General appearance: PRESENT: no acute distress, cooperative, thin. ABSENT: disheveled, hard of hearing Neck exam: PRESENT: JVD Respiratory exam: PRESENT: clear to auscultation roshan, symmetrical, unlabored. ABSENT: tachypnea, wheezes Cardiovascular exam: PRESENT: RRR, +S1, +S2. ABSENT: tachycardia GI/Abdominal exam: PRESENT: normal bowel sounds, soft. ABSENT: rebound, rigid, tenderness Neurological exam: PRESENT: alert, awake, oriented to person, oriented to place, oriented to time Results Laboratory Results: 12/06/19 13:43 12/06/19 13:43 11/28/19 16:18 Troponin I < 0.012 Impressions: Chest X-Ray 11/28/19 00:00 IMPRESSION: Chronic lung changes with no acute cardiopulmonary finding. Head CT 11/28/19 16:11 IMPRESSION: No acute intracranial abnormality. EVIDENCE OF ACUTE STROKE: NO. Head MRI 11/29/19 00:00 IMPRESSION: MINIMAL MICROVASCULAR ISCHEMIC CHANGE. OTHERWISE NORMAL STUDY. EVIDENCE OF ACUTE STROKE: NO. Carotid Doppler Study 11/29/19 21:55 IMPRESSION: NO HEMODYNAMICALLY SIGNIFICANT STENOSIS IN THE INTERNAL CAROTID ARTERIES. THE LEFT VERTEBRAL ARTERY IS NOT VISUALIZED. THE VESSEL MAY BE SMALL OR OCCLUDED. RIGHT VERTEBRAL ARTERY ANTEGRADE FLOW. KUB X-Ray 12/05/19 00:00 IMPRESSION: NG tube placement as described. Modified Barium Swallow 12/06/19 00:00 IMPRESSION: LARYNGEAL PENETRATION. TRACE ASPIRATION OF THIN LIQUIDS SUSPECTED BUT NOT SEEN. PLEASE SEE SPEECH PATHOLOGIST REPORT FOR OTHER FINDINGS AND RECOMMENDATIONS. Assessment and Plan - Diagnosis (1) CVA (cerebrovascular accident) Qualifiers: CVA mechanism: unspecified Qualified Code(s): I63.9 - Cerebral infarction, unspecified Is this a current diagnosis for this admission?: Yes (2) Dysphagia Qualifiers: Dysphagia type: oropharyngeal phase Qualified Code(s): R13.12 - Dysphagia, oropharyngeal phase Is this a current diagnosis for this admission?: Yes (3) Bipolar disorder Is this a current diagnosis for this admission?: Yes (4) CAD (coronary artery disease) Qualifiers: Associated angina: without angina Is this a current diagnosis for this admission?: Yes (5) COPD (chronic obstructive pulmonary disease) Is this a current diagnosis for this admission?: Yes (6) Diabetes mellitus type 2 in nonobese Is this a current diagnosis for this admission?: Yes - Plan Summary Summary: 12/03/2019 Unfortunately, patient has failed his modified barium swallow study again today which showed very significant aspiration. I have discussed with the speech pathologist who still recommends n.p.o. status but states that patient has shown very good improvement in swallowing and as such as potential to be able to pass the MBSS in about 2 days. As such, patient will continue on the swallowing exercises and we will reattempt modified barium swallow study in 2 days. Should patient fail that study, patient is willing to proceed with PEG tube placement in order to meet caloric needs. In the meantime, will continue with Dobbhoff enteral feedings. Continue current management for diabetes. Of note, patient's MRI was negative for any acute stroke but his dysphagia likely stems from his prior strokes. 12/04/2019 Discussed with speech pathologist today who recommends allowing patient to proceed with swallowing exercises today and tomorrow and then pursuing another modified barium swallow study on . We will proceed with this plan. Continue NG tube feedings for now. Continue other management for his COPD and bipolar. 12/05/2019 Patient continues with swallowing exercises. Modified barium swallow study scheduled for tomorrow morning. 12/06/2019 Unfortunately, patient has failed his modified barium swallow study again today. Discussed with speech pathologist who is recommending proceeding with longer term enteral feeding placement however patient continues to work to see if the swallowing improves. I will go ahead and plan for PEG tube placement. Continue aspirin and statin. COPD seems to be at baseline and not acutely exacerbated. 12/07/2019 Patient underwent PEG tube placement today. Patient will be started on tube feedings via PEG tube once surgery gives the okay to commence usage of PEG tube. Will check CBC and metabolic panel in the morning. Patient will still continue swallowing exercises even despite PEG placement. Continue antipsychotic medications and antidepressants. - Time Time Spent with patient: Less than 15 minutes
[2019-12-07] MEDS: ATORVASTATIN CALCIUM 80 MG TABLET NG SCH (22:03)
[2019-12-07] MEDS: TRAZODONE HCL 50 MG TABLET NG SCH (22:04)
[2019-12-08] MEDS: BENZTROPINE MESYLATE 1 MG TABLET NG SCH (05:29)
[2019-12-08] MEDS: GABAPENTIN 300 MG CAPSULE NG SCH (05:29)
[2019-12-08] MEDS: HEPARIN SOD (PORCINE) 5,000 UNIT/ML 1 ML VIAL SUBCUT SCH ×3 (05:29→21:09)
[2019-12-08] MEDS ORDERED: MORPHINE SULFATE 10 MG/ML INJ IV ONE (06:00)
[2019-12-08 06:10] LABS: HEMATOCRIT 37.4 % (37.9-51.0); HEMOGLOBIN 12.5 g/dL (13.5-17.0); MEAN CORPUSCULAR HEMOGLOBIN 25.6 pg (27.0-33.4); MEAN CORPUSCULAR HGB CONC 33.5 g/dL (32.0-36.0); MEAN CORPUSCULAR VOLUME 77 fl (80-97); PLATELET COUNT 210 10^3/uL (150-450); RED BLOOD COUNT 4.89 10^6/uL (4.35-5.55); RED CELL DISTRIBUTION WIDTH 13.9 % (11.5-14.0); WHITE BLOOD COUNT 9.7 10^3/uL (4.0-10.5)
[2019-12-08] MEDS: INSULIN LISPRO 100 UNIT/ML 3 ML VIAL SUBCUT SCH ×3 (06:13→18:08)
[2019-12-08 06:26] LABS: ANION GAP 13 (5-19); BLOOD UREA NITROGEN 22 mg/dL (7-20); CALCIUM 9.7 mg/dL (8.4-10.2); CARBON DIOXIDE 27 mmol/L (22-30); CHLORIDE 100 mmol/L (98-107); GLUCOSE 103 mg/dL (75-110)
[2019-12-08] MEDS ORDERED: ACETAMINOPHEN SOLN 325 MG/10.15 ML UDCUP PEG PRN (08:00)
[2019-12-08] MEDS ORDERED: ONDANSETRON 4 MG TAB.RAPDIS PEG PRN (08:00)
[2019-12-08] MEDS ORDERED: DOCUSATE SODIUM 100 MG/10 ML UDC PEG PRN (08:00)
[2019-12-08] MEDS ORDERED: ACETAMINOPHEN 325 MG TABLET PO PRN (09:59)
[2019-12-08] MEDS ORDERED: OXYCODONE-ACETAMINOPHEN 5-325 MG TABLET PO PRN (09:59)
--- NOTE | 2019-12-08 10:07 | PDOC PROGRESS REPORT ---
Subjective Progress Note for:: 12/08/19 Subjective:: Patient complains of abdominal pain around the site of his PEG tube. Was seen in his epigastric region. Denies any nausea vomiting. Reason For Visit: DYSPHAGIA Physical Exam Vital Signs: Temp Pulse Resp BP Pulse Ox 98.1 F 77 16 131/79 H 95 12/08/19 08:05 12/08/19 08:05 12/08/19 08:05 12/08/19 08:05 12/08/19 08:05 Intake & Output 12/07/19 12/08/19 12/09/19 06:59 06:59 06:59 Intake Total 1185 520 Balance 1185 520 Weight 50.9 kg 51.7 kg General appearance: PRESENT: no acute distress, cooperative Head exam: PRESENT: normocephalic Mouth exam: PRESENT: neck supple Respiratory exam: PRESENT: symmetrical, unlabored. ABSENT: accessory muscle use, retraction, tachypnea Cardiovascular exam: PRESENT: RRR, +S1, +S2. ABSENT: tachycardia GI/Abdominal exam: PRESENT: soft, tenderness. ABSENT: distended, firm, guarding, rebound, rigid Neurological exam: PRESENT: alert, awake, oriented to person, oriented to place, oriented to time Psychiatric exam: ABSENT: agitated, anxious Focused psych exam: ABSENT: pressured speech Skin exam: ABSENT: jaundice Results Laboratory Results: 12/08/19 05:50 12/08/19 05:50 12/08/19 12/08/19 05:50 05:50 WBC 9.7 RBC 4.89 Hgb 12.5 L Hct 37.4 L MCV 77 L MCH 25.6 L MCHC 33.5 RDW 13.9 Plt Count 210 Sodium 139.9 Potassium 4.0 Chloride 100 Carbon Dioxide 27 Anion Gap 13 BUN 22 H Creatinine 0.98 Est GFR ( Amer) > 60 Glucose 103 Calcium 9.7 11/28/19 16:18 Troponin I < 0.012 Impressions: Chest X-Ray 11/28/19 00:00 IMPRESSION: Chronic lung changes with no acute cardiopulmonary finding. Head CT 11/28/19 16:11 IMPRESSION: No acute intracranial abnormality. EVIDENCE OF ACUTE STROKE: NO. Head MRI 11/29/19 00:00 IMPRESSION: MINIMAL MICROVASCULAR ISCHEMIC CHANGE. OTHERWISE NORMAL STUDY. EVIDENCE OF ACUTE STROKE: NO. Carotid Doppler Study 11/29/19 21:55 IMPRESSION: NO HEMODYNAMICALLY SIGNIFICANT STENOSIS IN THE INTERNAL CAROTID ARTERIES. THE LEFT VERTEBRAL ARTERY IS NOT VISUALIZED. THE VESSEL MAY BE SMALL OR OCCLUDED. RIGHT VERTEBRAL ARTERY ANTEGRADE FLOW. KUB X-Ray 12/05/19 00:00 IMPRESSION: NG tube placement as described. Modified Barium Swallow 12/06/19 00:00 IMPRESSION: LARYNGEAL PENETRATION. TRACE ASPIRATION OF THIN LIQUIDS SUSPECTED BUT NOT SEEN. PLEASE SEE SPEECH PATHOLOGIST REPORT FOR OTHER FINDINGS AND RECOMMENDATIONS. Assessment and Plan - Diagnosis (1) Dysphagia Qualifiers: Dysphagia type: oropharyngeal phase Qualified Code(s): R13.12 - Dysphagia, oropharyngeal phase Is this a current diagnosis for this admission?: Yes (2) CVA (cerebrovascular accident) Qualifiers: CVA mechanism: unspecified Qualified Code(s): I63.9 - Cerebral infarction, unspecified Is this a current diagnosis for this admission?: Yes (3) Bipolar disorder Is this a current diagnosis for this admission?: Yes (4) CAD (coronary artery disease) Qualifiers: Associated angina: without angina Is this a current diagnosis for this admission?: Yes (5) COPD (chronic obstructive pulmonary disease) Is this a current diagnosis for this admission?: Yes (6) Diabetes mellitus type 2 in nonobese Is this a current diagnosis for this admission?: Yes - Plan Summary Summary: 12/03/2019 Unfortunately, patient has failed his modified barium swallow study again today which showed very significant aspiration. I have discussed with the speech pathologist who still recommends n.p.o. status but states that patient has shown very good improvement in swallowing and as such as potential to be able to pass the MBSS in about 2 days. As such, patient will continue on the swallowing exercises and we will reattempt modified barium swallow study in 2 days. Should patient fail that study, patient is willing to proceed with PEG tube placement in order to meet caloric needs. In the meantime, will continue with Dobbhoff enteral feedings. Continue current management for diabetes. Of note, patient's MRI was negative for any acute stroke but his dysphagia likely stems from his prior strokes. 12/04/2019 Discussed with speech pathologist today who recommends allowing patient to proceed with swallowing exercises today and tomorrow and then pursuing another modified barium swallow study on . We will proceed with this plan. Continue NG tube feedings for now. Continue other management for his COPD and bipolar. 12/05/2019 Patient continues with swallowing exercises. Modified barium swallow study scheduled for tomorrow morning. 12/06/2019 Unfortunately, patient has failed his modified barium swallow study again today. Discussed with speech pathologist who is recommending proceeding with longer term enteral feeding placement however patient continues to work to see if the swallowing improves. I will go ahead and plan for PEG tube placement. Continue aspirin and statin. COPD seems to be at baseline and not acutely exacerbated. 12/07/2019 Patient underwent PEG tube placement today. Patient will be started on tube feedings via PEG tube once surgery gives the okay to commence usage of PEG tube. Will check CBC and metabolic panel in the morning. Patient will still continue swallowing exercises even despite PEG placement. Continue antipsychotic medications and antidepressants. 12/08/2019 PEG tube currently in use. We will prescribe lidocaine gel to be placed around the site of PEG tube to help with abdominal pain. We will also place on Tylenol and Percocet as needed for pain. Tube feeds restarted earlier this morning. Will monitor residuals and see if patient can achieve goal rate. Discharge planning consulted for home health for tube feedings. Patient will still continue swallowing exercises even despite PEG placement. Continue antipsychotic medications and antidepressants. - Time Time Spent with patient: Less than 15 minutes
[2019-12-08] MEDS: ASPIRIN 325 MG TABLET PEG SCH (10:10)
[2019-12-08] MEDS: OLANZAPINE 5 MG TAB.RAPDIS PEG SCH ×2 (10:11→21:10)
[2019-12-08] MEDS: FAMOTIDINE 20 MG TABLET PEG SCH (10:11)
[2019-12-08] MEDS: SERTRALINE HCL 50 MG TABLET PEG SCH (10:11)
--- NOTE | 2019-12-08 11:59 | PDOC PROGRESS REPORT ---
Subjective Progress Note for:: 12/08/19 Reason For Visit: DYSPHAGIA POST peg tube placment Physical Exam Vital Signs: Temp Pulse Resp BP Pulse Ox 98.1 F 77 16 131/79 H 95 12/08/19 08:05 12/08/19 08:05 12/08/19 08:05 12/08/19 08:05 12/08/19 08:05 Intake & Output 12/07/19 12/08/19 12/09/19 06:59 06:59 06:59 Intake Total 1185 520 Balance 1185 520 Weight 50.9 kg 51.7 kg General appearance: PRESENT: no acute distress Eye exam: PRESENT: EOMI Mouth exam: PRESENT: moist Neck exam: PRESENT: full ROM Respiratory exam: PRESENT: clear to auscultation roshan Cardiovascular exam: PRESENT: RRR Pulses: PRESENT: normal radial pulses, normal femoral pulses Vascular exam: PRESENT: normal capillary refill Breast: PRESENT: Normal GI/Abdominal exam: PRESENT: soft, other - peg tube functioning, wound clean Rectal exam: PRESENT: deferred Extremities exam: PRESENT: full ROM Musculoskeletal exam: PRESENT: full ROM Neurological exam: PRESENT: alert, awake, oriented to person, oriented to place Psychiatric exam: PRESENT: appropriate affect Skin exam: PRESENT: dry Results Laboratory Results: 12/08/19 05:50 12/08/19 05:50 12/08/19 12/08/19 05:50 05:50 WBC 9.7 RBC 4.89 Hgb 12.5 L Hct 37.4 L MCV 77 L MCH 25.6 L MCHC 33.5 RDW 13.9 Plt Count 210 Sodium 139.9 Potassium 4.0 Chloride 100 Carbon Dioxide 27 Anion Gap 13 BUN 22 H Creatinine 0.98 Est GFR ( Amer) > 60 Glucose 103 Calcium 9.7 11/28/19 16:18 Troponin I < 0.012 Impressions: Chest X-Ray 11/28/19 00:00 IMPRESSION: Chronic lung changes with no acute cardiopulmonary finding. Head CT 11/28/19 16:11 IMPRESSION: No acute intracranial abnormality. EVIDENCE OF ACUTE STROKE: NO. Head MRI 11/29/19 00:00 IMPRESSION: MINIMAL MICROVASCULAR ISCHEMIC CHANGE. OTHERWISE NORMAL STUDY. EVIDENCE OF ACUTE STROKE: NO. Carotid Doppler Study 11/29/19 21:55 IMPRESSION: NO HEMODYNAMICALLY SIGNIFICANT STENOSIS IN THE INTERNAL CAROTID ARTERIES. THE LEFT VERTEBRAL ARTERY IS NOT VISUALIZED. THE VESSEL MAY BE SMALL OR OCCLUDED. RIGHT VERTEBRAL ARTERY ANTEGRADE FLOW. KUB X-Ray 12/05/19 00:00 IMPRESSION: NG tube placement as described. Modified Barium Swallow 12/06/19 00:00 IMPRESSION: LARYNGEAL PENETRATION. TRACE ASPIRATION OF THIN LIQUIDS SUSPECTED BUT NOT SEEN. PLEASE SEE SPEECH PATHOLOGIST REPORT FOR OTHER FINDINGS AND RECOM MENDATIONS. Assessment & Plan - Plan Summary Plan Summary: s/p peg tube placemtn tube functioing well surgery will sign off 'please reconsult as necessary.
[2019-12-08] MEDS: GABAPENTIN 300 MG CAPSULE PEG SCH ×2 (15:37→21:10)
[2019-12-08] MEDS: BENZTROPINE MESYLATE 1 MG TABLET PEG SCH ×2 (15:37→21:10)
[2019-12-08] MEDS: LIDOCAINE 4% CREAM 5 GM TUBE TP SCH ×2 (15:38→18:08)
[2019-12-08] MEDS: TRAZODONE HCL 50 MG TABLET PEG SCH (21:09)
[2019-12-08] MEDS: ATORVASTATIN CALCIUM 80 MG TABLET PEG SCH (21:09)
[2019-12-09] MEDS: INSULIN LISPRO 100 UNIT/ML 3 ML VIAL SUBCUT SCH ×4 (00:30→18:10)
[2019-12-09] MEDS: HEPARIN SOD (PORCINE) 5,000 UNIT/ML 1 ML VIAL SUBCUT SCH ×3 (05:56→21:17)
[2019-12-09] MEDS: GABAPENTIN 300 MG CAPSULE PEG SCH ×3 (05:57→21:17)
[2019-12-09] MEDS: BENZTROPINE MESYLATE 1 MG TABLET PEG SCH ×3 (05:57→21:17)
[2019-12-09] MEDS: ASPIRIN 325 MG TABLET PEG SCH (10:08)
[2019-12-09] MEDS: OLANZAPINE 5 MG TAB.RAPDIS PEG SCH ×2 (10:08→21:16)
[2019-12-09] MEDS: LIDOCAINE 4% CREAM 5 GM TUBE TP SCH ×2 (10:08→18:11)
[2019-12-09] MEDS: FAMOTIDINE 20 MG TABLET PEG SCH (10:08)
[2019-12-09] MEDS: SERTRALINE HCL 50 MG TABLET PEG SCH (10:08)
--- NOTE | 2019-12-09 10:22 | PDOC PROGRESS REPORT ---
Subjective Progress Note for:: 12/09/19 Subjective:: Patient states that abdominal pain has significantly improved. However he has not had a bowel movement for a while now. Reason For Visit: DYSPHAGIA Physical Exam Vital Signs: Temp Pulse Resp BP Pulse Ox 97.5 F 75 16 140/73 H 97 12/09/19 08:27 12/09/19 08:27 12/09/19 08:27 12/09/19 08:27 12/09/19 08:27 Intake & Output 12/08/19 12/09/19 12/10/19 06:59 06:59 06:59 Intake Total 520 2157 Balance 520 2157 Weight 51.7 kg 53.2 kg General appearance: PRESENT: no acute distress, cooperative Neck exam: ABSENT: JVD Respiratory exam: PRESENT: symmetrical, unlabored. ABSENT: accessory muscle use, retraction, tachypnea Cardiovascular exam: PRESENT: RRR, +S1, +S2. ABSENT: tachycardia GI/Abdominal exam: PRESENT: distended, normal bowel sounds, soft, tenderness - mild. ABSENT: firm, guarding, rebound, rigid Neurological exam: PRESENT: alert, awake, oriented to person, oriented to place, oriented to time, oriented to situation Results Laboratory Results: 12/08/19 05:50 12/08/19 05:50 11/28/19 16:18 Troponin I < 0.012 Impressions: Chest X-Ray 11/28/19 00:00 IMPRESSION: Chronic lung changes with no acute cardiopulmonary finding. Head CT 11/28/19 16:11 IMPRESSION: No acute intracranial abnormality. EVIDENCE OF ACUTE STROKE: NO. Head MRI 11/29/19 00:00 IMPRESSION: MINIMAL MICROVASCULAR ISCHEMIC CHANGE. OTHERWISE NORMAL STUDY. EVIDENCE OF ACUTE STROKE: NO. Carotid Doppler Study 11/29/19 21:55 IMPRESSION: NO HEMODYNAMICALLY SIGNIFICANT STENOSIS IN THE INTERNAL CAROTID ARTERIES. THE LEFT VERTEBRAL ARTERY IS NOT VISUALIZED. THE VESSEL MAY BE SMALL OR OCCLUDED. RIGHT VERTEBRAL ARTERY ANTEGRADE FLOW. KUB X-Ray 12/05/19 00:00 IMPRESSION: NG tube placement as described. Modified Barium Swallow 12/06/19 00:00 IMPRESSION: LARYNGEAL PENETRATION. TRACE ASPIRATION OF THIN LIQUIDS SUSPECTED BUT NOT SEEN. PLEASE SEE SPEECH PATHOLOGIST REPORT FOR OTHER FINDINGS AND RECOMMENDATIONS. Assessment and Plan - Diagnosis (1) Dysphagia Qualifiers: Dysphagia type: oropharyngeal phase Qualified Code(s): R13.12 - Dysphagia, oropharyngeal phase Is this a current diagnosis for this admission?: Yes (2) Constipation Qualifiers: Constipation type: unspecified constipation type Qualified Code(s): K59.00 - Constipation, unspecified Is this a current diagnosis for this admission?: Yes (3) CVA (cerebrovascular accident) Qualifiers: CVA mechanism: unspecified Qualified Code(s): I63.9 - Cerebral infarction, unspecified Is this a current diagnosis for this admission?: Yes (4) Bipolar disorder Is this a current diagnosis for this admission?: Yes (5) CAD (coronary artery disease) Qualifiers: Associated angina: without angina Is this a current diagnosis for this admission?: Yes (6) COPD (chronic obstructive pulmonary disease) Is this a current diagnosis for this admission?: Yes (7) Diabetes mellitus type 2 in nonobese Is this a current diagnosis for this admission?: Yes - Plan Summary Summary: 12/03/2019 Unfortunately, patient has failed his modified barium swallow study again today which showed very significant aspiration. I have discussed with the speech pathologist who still recommends n.p.o. status but states that patient has shown very good improvement in swallowing and as such as potential to be able to pass the MBSS in about 2 days. As such, patient will continue on the swallowing exercises and we will reattempt modified barium swallow study in 2 days. Should patient fail that study, patient is willing to proceed with PEG tube placement in order to meet caloric needs. In the meantime, will continue with Dobbhoff enteral feedings. Continue current management for diabetes. Of note, patient's MRI was negative for any acute stroke but his dysphagia likely stems from his prior strokes. 12/04/2019 Discussed with speech pathologist today who recommends allowing patient to proceed with swallowing exercises today and tomorrow and then pursuing another modified barium swallow study on . We will proceed with this plan. Continue NG tube feedings for now. Continue other management for his COPD and bipolar. 12/05/2019 Patient continues with swallowing exercises. Modified barium swallow study scheduled for tomorrow morning. 12/06/2019 Unfortunately, patient has failed his modified barium swallow study again today. Discussed with speech pathologist who is recommending proceeding with longer term enteral feeding placement however patient continues to work to see if the swallowing improves. I will go ahead and plan for PEG tube placement. Continue aspirin and statin. COPD seems to be at baseline and not acutely exacerbated. 12/07/2019 Patient underwent PEG tube placement today. Patient will be started on tube feedings via PEG tube once surgery gives the okay to commence usage of PEG tube. Will check CBC and metabolic panel in the morning. Patient will still continue swallowing exercises even despite PEG placement. Continue antipsychotic medications and antidepressants. 12/08/2019 PEG tube currently in use. We will prescribe lidocaine gel to be placed around the site of PEG tube to help with abdominal pain. We will also place on Tylenol and Percocet as needed for pain. Tube feeds restarted earlier this morning. Will monitor residuals and see if patient can achieve goal rate. Discharge planning consulted for home health for tube feedings. Patient will still continue swallowing exercises even despite PEG placement. Continue antipsychotic medications and antidepressants. 12/09/2019 PEG tube currently in use. Jevity tube feeds ongoing with monitoring of residuals. I have reconsulted dietitian for recommendations for adequate tube feeding that patient can be discharged on rather than continuous tube feeding. I will also give a dose of Bisacodyl as patient states he has not had a bowel movement in close to a week. Stool softeners. Pain control. Patient to continue with swallow exercises. Discharge planning consulted for home health. - Time Anticipated discharge: Home with Homehealth Within: within 24 hours
[2019-12-09] MEDS ORDERED: POLYETHYLENE GLYCOL 3350 POWDER 17 GM/1 PACKET PO PRN (10:31)
[2019-12-09] MEDS ORDERED: BISACODYL 10 MG SUPP.RECT PR ONE (11:00)
[2019-12-09] MEDS ORDERED: POLYETHYLENE GLYCOL 3350 POWDER 17 GM/1 PACKET PO ONE (11:00)
[2019-12-09] MEDS: DOCUSATE SODIUM 100 MG/10 ML UDC PEG SCH ×2 (13:32→18:10)
[2019-12-09] MEDS: OXYCODONE-ACETAMINOPHEN 5-325 MG TABLET PO PRN (16:21)
[2019-12-09] MEDS: ATORVASTATIN CALCIUM 80 MG TABLET PEG SCH (21:16)
[2019-12-09] MEDS: TRAZODONE HCL 50 MG TABLET PEG SCH (21:17)
[2019-12-10] MEDS: INSULIN LISPRO 100 UNIT/ML 3 ML VIAL SUBCUT SCH ×4 (00:25→18:59)
[2019-12-10] MEDS: OXYCODONE-ACETAMINOPHEN 5-325 MG TABLET PO PRN (00:28)
[2019-12-10] MEDS: BENZTROPINE MESYLATE 1 MG TABLET PEG SCH ×3 (05:31→23:04)
[2019-12-10] MEDS: HEPARIN SOD (PORCINE) 5,000 UNIT/ML 1 ML VIAL SUBCUT SCH ×3 (05:31→23:04)
[2019-12-10] MEDS: GABAPENTIN 300 MG CAPSULE PEG SCH ×3 (05:31→23:03)
[2019-12-10] MEDS ORDERED: BISACODYL 10 MG SUPP.RECT PR ONE (09:30)
[2019-12-10] MEDS: FAMOTIDINE 20 MG TABLET PEG SCH (10:20)
[2019-12-10] MEDS: OLANZAPINE 5 MG TAB.RAPDIS PEG SCH ×2 (10:20→23:04)
[2019-12-10] MEDS: DOCUSATE SODIUM 100 MG/10 ML UDC PEG SCH ×2 (10:21→17:45)
[2019-12-10] MEDS: ASPIRIN 325 MG TABLET PEG SCH (10:21)
[2019-12-10] MEDS: SERTRALINE HCL 50 MG TABLET PEG SCH (10:21)
[2019-12-10] MEDS: LIDOCAINE 4% CREAM 5 GM TUBE TP SCH ×2 (10:21→17:46)
--- NOTE | 2019-12-10 13:43 | PDOC PROGRESS REPORT ---
Subjective Progress Note for:: 12/10/19 Subjective:: Patient is still yet to have a bowel movement today. Very constipated. Reason For Visit: DYSPHAGIA Physical Exam Vital Signs: Temp Pulse Resp BP Pulse Ox 97.4 F 74 16 131/68 H 92 12/10/19 03:39 12/10/19 12:00 12/10/19 12:00 12/10/19 12:00 12/10/19 12:00 Intake & Output 12/09/19 12/10/19 12/11/19 06:59 06:59 06:59 Intake Total 2156 1916 Balance 2156 1916 Weight 53.2 kg 52.7 kg 52.7 kg General appearance: PRESENT: no acute distress, cooperative Neck exam: ABSENT: JVD Respiratory exam: PRESENT: symmetrical, unlabored. ABSENT: accessory muscle use, retraction, tachypnea GI/Abdominal exam: PRESENT: distended, soft, tenderness. ABSENT: firm, guarding, rebound, rigid Neurological exam: PRESENT: alert, awake, oriented to person, oriented to place, oriented to time, other - Dysarthric Psychiatric exam: PRESENT: normal mood. ABSENT: agitated, anxious, flat affect Focused psych exam: ABSENT: pressured speech Results Laboratory Results: 12/08/19 05:50 12/08/19 05:50 11/28/19 16:18 Troponin I < 0.012 Impressions: Chest X-Ray 11/28/19 00:00 IMPRESSION: Chronic lung changes with no acute cardiopulmonary finding. Head CT 11/28/19 16:11 IMPRESSION: No acute intracranial abnormality. EVIDENCE OF ACUTE STROKE: NO. Head MRI 11/29/19 00:00 IMPRESSION: MINIMAL MICROVASCULAR ISCHEMIC CHANGE. OTHERWISE NORMAL STUDY. EVIDENCE OF ACUTE STROKE: NO. Carotid Doppler Study 11/29/19 21:55 IMPRESSION: NO HEMODYNAMICALLY SIGNIFICANT STENOSIS IN THE INTERNAL CAROTID ARTERIES. THE LEFT VERTEBRAL ARTERY IS NOT VISUALIZED. THE VESSEL MAY BE SMALL OR OCCLUDED. RIGHT VERTEBRAL ARTERY ANTEGRADE FLOW. KUB X-Ray 12/05/19 00:00 IMPRESSION: NG tube placement as described. Modified Barium Swallow 12/06/19 00:00 IMPRESSION: LARYNGEAL PENETRATION. TRACE ASPIRATION OF THIN LIQUIDS SUSPECTED BUT NOT SEEN. PLEASE SEE SPEECH PATHOLOGIST REPORT FOR OTHER FINDINGS AND RECOMMENDATIONS. Assessment and Plan - Diagnosis (1) Dysphagia Qualifiers: Dysphagia type: oropharyngeal phase Qualified Code(s): R13.12 - Dysphagia, oropharyngeal phase Is this a current diagnosis for this admission?: Yes (2) Constipation Qualifiers: Constipation type: unspecified constipation type Qualified Code(s): K59.00 - Constipation, unspecified Is this a current diagnosis for this admission?: Yes (3) CVA (cerebrovascular accident) Qualifiers: CVA mechanism: unspecified Qualified Code(s): I63.9 - Cerebral infarction, unspecified Is this a current diagnosis for this admission?: Yes (4) Bipolar disorder Is this a current diagnosis for this admission?: Yes (5) CAD (coronary artery disease) Qualifiers: Associated angina: without angina Is this a current diagnosis for this admission?: Yes (6) COPD (chronic obstructive pulmonary disease) Is this a current diagnosis for this admission?: Yes (7) Diabetes mellitus type 2 in nonobese Is this a current diagnosis for this admission?: Yes - Plan Summary Summary: 12/03/2019 Unfortunately, patient has failed his modified barium swallow study again today which showed very significant aspiration. I have discussed with the speech pathologist who still recommends n.p.o. status but states that patient has shown very good improvement in swallowing and as such as potential to be able to pass the MBSS in about 2 days. As such, patient will continue on the swallowing exercises and we will reattempt modified barium swallow study in 2 days. Should patient fail that study, patient is willing to proceed with PEG tube placement in order to meet caloric needs. In the meantime, will continue with Dobbhoff enteral feedings. Continue current management for diabetes. Of note, patient's MRI was negative for any acute stroke but his dysphagia likely stems from his prior strokes. 12/04/2019 Discussed with speech pathologist today who recommends allowing patient to proceed with swallowing exercises today and tomorrow and then pursuing another modified barium swallow study on . We will proceed with this plan. Con tinue NG tube feedings for now. Continue other management for his COPD and bipolar. 12/05/2019 Patient continues with swallowing exercises. Modified barium swallow study scheduled for tomorrow morning. 12/06/2019 Unfortunately, patient has failed his modified barium swallow study again today. Discussed with speech pathologist who is recommending proceeding with longer term enteral feeding placement however patient continues to work to see if the swallowing improves. I will go ahead and plan for PEG tube placement. Continue aspirin and statin. COPD seems to be at baseline and not acutely exacerbated. 12/07/2019 Patient underwent PEG tube placement today. Patient will be started on tube feedings via PEG tube once surgery gives the okay to commence usage of PEG tube. Will check CBC and metabolic panel in the morning. Patient will still continue swallowing exercises even despite PEG placement. Continue antipsychotic medications and antidepressants. 12/08/2019 PEG tube currently in use. We will prescribe lidocaine gel to be placed around the site of PEG tube to help with abdominal pain. We will also place on Tylenol and Percocet as needed for pain. Tube feeds restarted earlier this morning. Will monitor residuals and see if patient can achieve goal rate. Discharge hansel araujo consulted for home health for tube feedings. Patient will still continue swallowing exercises even despite PEG placement. Continue antipsychotic medications and antidepressants. 12/09/2019 PEG tube currently in use. Jevity tube feeds ongoing with monitoring of residuals. I have reconsulted dietitian for recommendations for adequate tube feeding that patient can be discharged on rather than continuous tube feeding. I will also give a dose of Bisacodyl as patient states he has not had a bowel movement in close to a week. Stool softeners. Pain control. Patient to continue with swallow exercises. Discharge planning consulted for home health. 12/10/2019 Dietitian consulted and has given recommendation for bolus feeds. Patient will be started on bolus feeds today and slowly advanced to see if patient tolerates feeding. However residuals this morning was about 130 cc. This is partly due to patient's significant constipation as he has not had a bowel movement yet. I gave a dose of 10 mg Doculax rectal suppository earlier this morning but still no bowel movement. I will give a dose of magnesium citrate and if no bowel movement by later this afternoon, we will pursue an enema. In the meantime we will continue stool softeners. Stop Percocet. Continue lidocaine jelly application at the PEG site. Continue Tylenol as needed. Continue diabetes regimen with sliding scale insulin and Accu-Cheks. - Time Time Spent with patient: Less than 15 minutes
[2019-12-10] MEDS ORDERED: MAGNESIUM CITRATE 296 ML BOTTLE PEG ONE (14:00)
[2019-12-10] MEDS: TRAZODONE HCL 50 MG TABLET PEG SCH (23:03)
[2019-12-10] MEDS: ATORVASTATIN CALCIUM 80 MG TABLET PEG SCH (23:04)
[2019-12-11] MEDS: INSULIN LISPRO 100 UNIT/ML 3 ML VIAL SUBCUT SCH ×3 (00:15→13:28)
[2019-12-11] MEDS: HEPARIN SOD (PORCINE) 5,000 UNIT/ML 1 ML VIAL SUBCUT SCH ×2 (06:53→13:27)
[2019-12-11] MEDS: GABAPENTIN 300 MG CAPSULE PEG SCH ×2 (06:53→13:26)
[2019-12-11] MEDS: BENZTROPINE MESYLATE 1 MG TABLET PEG SCH ×2 (06:53→13:26)
[2019-12-11] MEDS: SERTRALINE HCL 50 MG TABLET PEG SCH (10:05)
[2019-12-11] MEDS: OLANZAPINE 5 MG TAB.RAPDIS PEG SCH (10:05)
[2019-12-11] MEDS: ASPIRIN 325 MG TABLET PEG SCH (10:05)
[2019-12-11] MEDS: DOCUSATE SODIUM 100 MG/10 ML UDC PEG SCH (10:05)
[2019-12-11] MEDS: LIDOCAINE 4% CREAM 5 GM TUBE TP SCH (13:27)
[2019-12-11] MEDS: FAMOTIDINE 20 MG TABLET PEG SCH (13:28)
[2019-12-11 14:14] VITALS: BP 114/68
[2019-12-11] MEDS ORDERED: INFLUENZA QUAD (6MOS+) 2019-20 VAC 0.5 ML SYR IM ONE (14:30)
--- NOTE | 2019-12-11 14:39 | PDOC DISCHARGE SUMMARY ---
Impression - Admit/DC Date/PCP Admission Date/Primary Care Provider: 12/02/19 15:51 BASHIR KELLY Discharge Date: 12/11/19 - Discharge Diagnosis (1) Dysphagia Is this a current diagnosis for this admission?: Yes (2) Constipation Is this a current diagnosis for this admission?: Yes (3) CVA (cerebrovascular accident) Is this a current diagnosis for this admission?: Yes (4) Bipolar disorder Is this a current diagnosis for this admission?: Yes (5) CAD (coronary artery disease) Is this a current diagnosis for this admission?: Yes (6) COPD (chronic obstructive pulmonary disease) Is this a current diagnosis for this admission?: Yes (7) Diabetes mellitus type 2 in nonobese Is this a current diagnosis for this admission?: Yes - Assessment Summary: 12/03/2019 Unfortunately, patient has failed his modified barium swallow study again today which showed very significant aspiration. I have discussed with the speech pa thologist who still recommends n.p.o. status but states that patient has shown very good improvement in swallowing and as such as potential to be able to pass the MBSS in about 2 days. As such, patient will continue on the swallowing exercises and we will reattempt modified barium swallow study in 2 days. Should patient fail that study, patient is willing to proceed with PEG tube placement in order to meet caloric needs. In the meantime, will continue with Dobbhoff enteral feedings. Continue current management for diabetes. Of note, patient's MRI was negative for any acute stroke but his dysphagia likely stems from his prior strokes. 12/04/2019 Discussed with speech pathologist today who recommends allowing patient to proceed with swallowing exercises today and tomorrow and then pursuing another modified barium swallow study on . We will proceed with this plan. Continue NG tube feedings for now. Continue other management for his COPD and bipolar. 12/05/2019 Patient continues with swallowing exercises. Modified barium swallow study scheduled for tomorrow morning. 12/06/2019 Unfortunately, patient has failed his modified barium swallow study again today. Discussed with speech pathologist who is recommending proceeding with longer term enteral feeding placement however patient continues to work to see if the swallowing improves. I will go ahead and plan for PEG tube placement. Continue aspirin and statin. COPD seems to be at baseline and not acutely exacerbated. 12/07/2019 Patient underwent PEG tube placement today. Patient will be started on tube fee dings via PEG tube once surgery gives the okay to commence usage of PEG tube. Will check CBC and metabolic panel in the morning. Patient will still continue swallowing exercises even despite PEG placement. Continue antipsychotic medications and antidepressants. 12/08/2019 PEG tube currently in use. We will prescribe lidocaine gel to be placed around the site of PEG tube to help with abdominal pain. We will also place on Tylenol and Percocet as needed for pain. Tube feeds restarted earlier this morning. Will monitor residuals and see if patient can achieve goal rate. Discharge planning consulted for home health for tube feedings. Patient will still continue swallowing exercises even despite PEG placement. Continue antipsychotic medications and antidepressants. 12/09/2019 PEG tube currently in use. Jevity tube feeds ongoing with monitoring of residuals. I have reconsulted dietitian for recommendations for adequate tube feeding that patient can be discharged on rather than continuous tube feeding. I will also give a dose of Bisacodyl as patient states he has not had a bowel movement in close to a week. Stool softeners. Pain control. Patient to continue with swallow exercises. Discharge planning consulted for home health. 12/10/2019 Dietitian consulted and has given recommendation for bolus feeds. Patient will be started on bolus feeds today and slowly advanced to see if patient tolerates feeding. However residuals this morning was about 130 cc. This is partly due to patient's significant constipation as he has not had a bowel movement yet. I gave a dose of 10 mg Doculax rectal suppository earlier this morning but still no bowel movement. I will give a dose of magnesium citrate and if no bowel movement by later this afternoon, we will pursue an enema. In the meantime we will continue stool softeners. Stop Percocet. Continue lidocaine jelly application at the PEG site. Continue Tylenol as needed. Continue diabetes regimen with sliding scale insulin and Accu-Cheks. - Additional Information Resuscitation Status: Full Code Discharge Diet: Tube Feeding (Comments) Discharge Activity: Activity As Tolerated, Balance Activity w/Rest Referrals: BASHIR KELLY MD [Primary Care Provider] - 12/19/19 1:00 pm Prescriptions: Lidocaine [Anecream 4% Tube 5 gm] 1 applic TP BID 15 Days tube Aspirin [Aspirin 81 mg Chewable Tablet] 81 mg PEG DAILY #30 tab Docusate Sodium [Colace Udc 100 mg/10 ml Oral Soln] 100 mg PEG BID 30 Days udc Atorvastatin Calcium [Lipitor 80 mg Tablet] 80 mg PEG QHS #30 tablet Home Medications: Benztropine Mesylate [Benztropine Mesylate 2 mg Tablet] 2 mg PO Q8 08/29/17 Ranitidine HCl [Zantac 150 mg Tablet] 300 mg PO DAILY 08/29/17 Trazodone HCl [Desyrel] 300 mg PO QHS 08/29/17 Ziprasidone HCl [Geodon 60 Mg Capsule] 60 mg PO Q12 02/24/19 Aspirin [Aspirin 81 mg Chewable Tablet] 81 mg PEG DAILY #30 tab 12/11/19 Atorvastatin Calcium [Lipitor 80 mg Tablet] 80 mg PEG QHS #30 tablet 12/11/19 Cholecalciferol (Vitamin D3) [Vitamin D3] 50,000 unit PEG Q7D #0 12/11/19 Docusate Sodium [Colace Udc 100 mg/10 ml Oral Soln] 100 mg PEG BID 30 Days udc 12/11/19 Eszopiclone [Lunesta] 2 mg PEG QHS #0 12/11/19 Gabapentin [Neurontin] 600 mg PEG Q8 #0 12/11/19 Lidocaine [Anecream 4% Tube 5 gm] 1 applic TP BID 15 Days tube 12/11/19 Polyethylene Glycol 3350 [Miralax Powder 17 gm/Packet] 17 gm PO DAILYP PRN #0 powd.pack 12/11/19 Sertraline HCl [Zoloft 50 mg Tablet] 50 mg PEG DAILY #0 12/11/19 Valbenazine Tosylate [Ingrezza] 80 mg PEG DAILY #0 12/11/19 History of Present Illiness History of Present Illness: AMISHA ABBOTT is a 54 year old male with past medical history of previous CVA events, TIA, T2 DM, HTN, HLD, COPD, CAD, bipolar disorder who presented to ED with complaints of LUE weakness worse than baseline weakness from previous stroke, dysarthria, word finding difficulty, slurred speech. Patient states the symptoms are consistent with his previous CVAs. He states he takes 81 mg aspirin daily which was given to him by his daughter and endorses full compliance with this. He states he takes all his medications that are given to him by his daughter. He was not a candidate for TPA as his symptoms began at 8:30 AM and he did not present to ED until 4 PM that same day. Symptoms gradually improving on admission. Admitted for further stroke work-up Hospital Course Hospital Course: Patient admitted for work-up for stroke. Patient received work-up for stroke with MRI of the brain which was negative for any acute stroke but did show multiple old infarcts. Patient's dysphagia was evaluated. His dysphagia was thought to be oropharyngeal mechanism and thought to be secondary to his prior multiple strokes. Patient underwent modified barium swallow studies about 3 times and failed all 3 of them noticed significant oropharyngeal dysphagia on all the studies. In between these studies, he was working with a speech pathologist and practicing different swallowing exercises with the hope that his swallowing would improve. After failing the third modified barium swallow study, patient decided to proceed with PEG tube placement in order to be able to take his medications and achieve proper nutritional intake. PEG tube was placed and patient was started on tube feeds. Dietitian give recommendations for bolus feeding. Patient was also treated for constipation with bowel regimen, MiraLAX, magnesium citrate, Dulcolax and finally had a large bowel movement today. At this time patient has very minimal residuals from PEG tube and has been tolerating feeding. As such he is being discharged and has been set up with home health and his tube feedings have been set up for him to be continue to use at home. Patient is stable and safe for discharge at this time. Physical Exam Vital Signs: Temp Pulse Resp BP Pulse Ox 97.9 F 85 16 114/68 95 12/11/19 14:05 12/11/19 14:05 12/11/19 14:05 12/11/19 14:05 12/11/19 14:05 Intake & Output 12/10/19 12/11/19 12/12/19 06:59 06:59 06:59 Intake Total 1916 1133 705 Output Total 360 Balance 1916 1133 345 Weight 52.7 kg 52.5 kg General appearance: PRESENT: no acute distress, cooperative Neck exam: ABSENT: JVD Respiratory exam: PRESENT: unlabored Neurological exam: PRESENT: alert, awake Results Laboratory Results: WBC 9.7 10^3/uL (4.0-10.5) 12/08/19 05:50 RBC 4.89 10^6/uL (4.35-5.55) 12/08/19 05:50 Hgb 12.5 g/dL (13.5-17.0) L 12/08/19 05:50 Hct 37.4 % (37.9-51.0) L 12/08/19 05:50 MCV 77 fl (80-97) L 12/08/19 05:50 MCH 25.6 pg (27.0-33.4) L 12/08/19 05:50 MCHC 33.5 g/dL (32.0-36.0) 12/08/19 05:50 RDW 13.9 % (11.5-14.0) 12/08/19 05:50 Plt Count 210 10^3/uL (150-450) 12/08/19 05:50 Lymph % (Auto) 33.4 % (13-45) 11/29/19 05:10 Talbot % (Auto) 10.1 % (3-13) 11/29/19 05:10 Eos % (Auto) 8.6 % (0-6) H 11/29/19 05:10 Baso % (Auto) 1.2 % (0-2) 11/29/19 05:10 Absolute Neuts (auto) 2.7 10^3/uL (1.7-8.2) 11/29/19 05:10 Absolute Lymphs (auto) 1.9 10^3/uL (0.5-4.7) 11/29/19 05:10 Absolute Monos (auto) 0.6 10^3/uL (0.1-1.4) 11/29/19 05:10 Absolute Eos (auto) 0.5 10^3/uL (0.0-0.6) 11/29/19 05:10 Absolute Basos (auto) 0.1 10^3/uL (0.0-0.2) 11/29/19 05:10 Seg Neutrophils % 46.7 % (42-78) 11/29/19 05:10 PT 14.0 SEC (11.4-15.4) 11/28/19 16:18 INR 1.08 11/28/19 16:18 APTT 47.8 SEC (23.5-35.8) H 11/28/19 16:18 Sodium 139.9 mmol/L (137-145) 12/08/19 05:50 Potassium 4.0 mmol/L (3.6-5.0) 12/08/19 05:50 Chloride 100 mmol/L (98-107) 12/08/19 05:50 Carbon Dioxide 27 mmol/L (22-30) 12/08/19 05:50 Anion Gap 13 (5-19) 12/08/19 05:50 BUN 22 mg/dL (7-20) H 12/08/19 05:50 Creatinine 0.98 mg/dL (0.52-1.25) 12/08/19 05:50 Est GFR ( Amer) > 60 (>60) 12/08/19 05:50 Est GFR (MDRD) Non-Af > 60 (>60) 12/08/19 05:50 Glucose 103 mg/dL (75-110) 12/08/19 05:50 POC Glucose 129 mg/dL (70-110) H 12/11/19 13:34 Hemoglobin A1c % 5.3 % (4.7-6.0) 11/29/19 05:10 Calcium 9.7 mg/dL (8.4-10.2) 12/08/19 05:50 Magnesium 1.7 mg/dL (1.6-2.3) 12/06/19 13:43 Total Bilirubin 0.4 mg/dL (0.2-1.3) 12/06/19 13:43 Direct Bilirubin 0.3 mg/dL (0.0-0.4) 12/06/19 13:43 Neonat Total Bilirubin Not Reportable 12/06/19 13:43 Neonat Direct Bilirubin Not Reportable 12/06/19 13:43 Neonat Indirect Bili Not Reportable 12/06/19 13:43 AST 18 U/L (17-59) 12/06/19 13:43 ALT 13 U/L (<50) 12/06/19 13:43 Alkaline Phosphatase 79 U/L (38-126) 12/06/19 13:43 Troponin I < 0.012 ng/mL 11/28/19 16:18 Total Protein 7.4 g/dL (6.3-8.2) 12/06/19 13:43 Albumin 3.9 g/dL (3.5-5.0) 12/06/19 13:43 Triglycerides 91 mg/dL (<150) 11/29/19 05:10 Cholesterol 120.09 mg/dL (0-200) 11/29/19 05:10 LDL Cholesterol Direct 64 mg/dL (<100) 11/29/19 05:10 VLDL Cholesterol 18.0 mg/dL (10-31) 11/29/19 05:10 HDL Cholesterol 43 mg/dL (>40) 11/29/19 05:10 11/28/19 16:18 Troponin I < 0.012 Impressions: Chest X-Ray 11/28/19 00:00 IMPRESSION: Chronic lung changes with no acute cardiopulmonary finding. Head CT 11/28/19 16:11 IMPRESSION: No acute intracranial abnormality. EVIDENCE OF ACUTE STROKE: NO. Head MRI 11/29/19 00:00 IMPRESSION: MINIMAL MICROVASCULAR ISCHEMIC CHANGE. OTHERWISE NORMAL STUDY. EVIDENCE OF ACUTE STROKE: NO. Modified Barium Swallow 11/29/19 00:00 IMPRESSION: LARYNGEAL PENETRATION WITHOUT ASPIRATION. PLEASE SEE SPEECH PATHOLOGIST REPORT FOR OTHER FINDINGS AND RECOMMENDATIONS. Carotid Doppler Study 11/29/19 21:55 IMPRESSION: NO HEMODYNAMICALLY SIGNIFICANT STENOSIS IN THE INTERNAL CAROTID ARTERIES. THE LEFT VERTEBRAL ARTERY IS NOT VISUALIZED. THE VESSEL MAY BE SMALL OR OCCLUDED. RIGHT VERTEBRAL ARTERY ANTEGRADE FLOW. KUB X-Ray 11/30/19 08:49 IMPRESSION: NO RADIOGRAPHIC EVIDENCE FOR ACUTE ABDOMINAL DISEASE. KUB X-Ray 12/01/19 00:00 IMPRESSION: NG tube tip in the stomach. Modified Barium Swallow 12/03/19 06:00 IMPRESSION: LARYNGEAL PENETRATION WITH ASPIRATION OF THIN LIQUIDS ABOVE. PLEASE SEE SPEECH PATHOLOGIST REPORT FOR OTHER FINDINGS AND RECOMMENDATIONS. KUB X-Ray 12/05/19 00:00 IMPRESSION: NG tube placement as described. Modified Barium Swallow 12/06/19 00:00 IMPRESSION: LARYNGEAL PENETRATION. TRACE ASPIRATION OF THIN LIQUIDS SUSPECTED BUT NOT SEEN. PLEASE SEE SPEECH PATHOLOGIST REPORT FOR OTHER FINDINGS AND RECOMMENDATIONS. Plan Time Spent: Greater than 30 Minutes Stroke Is this a Stroke Patient?: Yes Stroke Pt being discharged on Anti-thrombolytic therapy?: Yes Stroke Pt being discharged on Anti-coagulation therapy?: No Reason(s) for not prescribing Anti-coagulation therapy:: Not indicated Stroke Pt being discharged on Statins?: Yes Acute Heart Failure - Is this a Heart Failure Patient?: No
== END 2019-12-11 17:04 | disposition home health service (06) | DRG 57 ==
LOC: ER 15:43 → EH 21:09 → 3S 23:20 → OBSVTOIN 12-02 15:51
PROVIDERS: ADMIT Internal Medicine; ATTEND Internal Medicine
PROC: 0DH67UZ Insertion of Feeding Device into Stomach, Via Natural or Artificial Opening (ICD-10-PCS; 2019-11-30)
PROC: 0DH68UZ Insertion of Feeding Device into Stomach, Via Natural or Artificial Opening Endoscopic (ICD-10-PCS; principal; 2019-12-07 14:00)
DX: I69.391 Dysphagia following cerebral infarction (principal); I69.354 Hemiplegia and hemiparesis following cerebral infarction affecting left non-dominant side; R47.81 Slurred speech; R47.1 Dysarthria and anarthria; R29.810 Facial weakness; K59.00 Constipation, unspecified; I25.10 Atherosclerotic heart disease of native coronary artery without angina pectoris; I10 Essential (primary) hypertension; J44.9 Chronic obstructive pulmonary disease, unspecified; K21.9 Gastro-esophageal reflux disease without esophagitis; M19.90 Unspecified osteoarthritis, unspecified site; F31.9 Bipolar disorder, unspecified; D64.9 Anemia, unspecified; F17.200 Nicotine dependence, unspecified, uncomplicated; E78.2 Mixed hyperlipidemia; E11.9 Type 2 diabetes mellitus without complications; Z79.82 Long term (current) use of aspirin; Z79.899 Other long term (current) drug therapy; Z88.0 Allergy status to penicillin; Z88.8 Allergy status to other drugs, medicaments and biological substances; Z79.84 Long term (current) use of oral hypoglycemic drugs
CPT/HCPCS: 36415; 70450; 70551; 71046; 74018; 74230; 80048; 80053; 80061; 82962; 83036; 83735; 84484; 85025; 85027; 85610; 85730; 90686; 93005; 93010; 93306; 93880; 99285; G0378; J0171; J1200; J1610; J1644; J1815; J2250; J2270; J2310; J2405; J3010; J3490

== ENCOUNTER 2020-03-14 10:02 | Emergency (ER) | payer MEDICARE ==
--- NOTE | 2020-03-14 10:22 | ER Document Report ---
ED Medical Screen (RME) - General Chief Complaint: Problem with Feeding Tube Stated Complaint: FEEDING TUBE ISSUE Time Seen by Provider: 03/14/20 10:16 Primary Care Provider: BASHIR KELLY MD [Primary Care Provider] - Follow up as needed Notes: Patient is a 54-year-old male who presents the emergency department with a chief complaint of his feeding tube issues. Patient states that yesterday his feeding tube button area had popped out. States that he had some leaking from it also. Patient just recently had his feeding tube placed in November for dysphasia. Patient reports that he was able to feed himself today. Denies pain during feeding. Exam: Tenderness around feeding tube insertion site. I have greeted and performed a rapid initial assessment of this patient. A comprehensive ED assessment and evaluation of the patient, analysis of test results and completion of medical decision making process will be conducted by an additional ED providers. TRAVEL OUTSIDE OF THE [place] IN LAST 30 DAYS: No - Related Data Allergies/Adverse Reactions: varenicline tartrate [From Chantix] Allergy (Unknown, Verified 03/14/20 10:16) amoxicillin Allergy (Verified 03/14/20 10:16) Penicillins Allergy (Verified 03/14/20 10:16) Past Medical History - Past Medical History Cardiac Medical History: Reports: Hx Coronary Artery Disease, Hx Hypercholesterolemia, Hx Hypertension Denies: Hx Congestive Heart Failure, Hx Heart Attack Pulmonary Medical History: Reports: Hx COPD, Hx Pneumonia Denies: Hx Asthma, Hx Bronchitis, Hx Tuberculosis Neurological Medical History: Reports: Hx Cerebrovascular Accident - left side effected. Denies: Hx Seizures, Hx Parkinson's Disease Renal/ Medical History: Denies: Hx Benign Prostatic Hyperplasia, Hx End Stage Renal Disease, Hx Kidney Stones, Hx Peritoneal Dialysis GI Medical History: Reports: Hx Gastroesophageal Reflux Disease, Hx Ulcer. Denies: Hx Cirrhosis Musculoskeltal Medical History: Reports Hx Arthritis, Denies Hx Multiple Sclerosis Psychiatric Medical History: Reports: Hx Bipolar Disorder, Hx Depression, Hx Schizophrenia Past Surgical History: Reports: Hx Abdominal Surgery - hernia x 2, Hx Herniorrhaphy - Hernia repair x2 - Immunizations Hx Diphtheria, Pertussis, Tetanus Vaccination: No Physical Exam - Vital signs Vitals: Temp Pulse Resp BP Pulse Ox 97.0 F 91 16 106/65 96 03/14/20 10:06 03/14/20 10:06 03/14/20 10:06 03/14/20 10:06 03/14/20 10:06 Course - Vital Signs Vital signs: Temp Pulse Resp BP Pulse Ox 97.0 F 91 16 106/65 96 03/14/20 10:06 03/14/20 10:06 03/14/20 10:06 03/14/20 10:06 03/14/20 10:06 Doctor's Discharge - Discharge Referrals: BASHIR KELLY MD [Primary Care Provider] - Follow up as needed
[2020-03-14] MEDS ORDERED: LIDOCAINE 2% JELLY 5 ML TUBE TOP ONE (10:35)
[2020-03-14] MEDS ORDERED: CEFTRIAXONE INJ 1000 MG VIAL IM ONE (10:46)
--- NOTE | 2020-03-14 10:50 | ER Document Report ---
ED GI/ - General Chief Complaint: Problem with Feeding Tube Stated Complaint: FEEDING TUBE ISSUE Time Seen by Provider: 03/14/20 10:16 Primary Care Provider: BASHIR KELLY MD [Primary Care Provider] - Follow up as needed Notes: 54-year-old man presents to the emergency department with a history of drainage/bleeding at his gastrostomy tube site. Patient states that he had the tube placed 3 months ago. He has not had any follow-up with GI or surgery due to the coronavirus pandemic. He notes that he began noticing the drainage yesterday. He denies fever or abdominal pain or associated nausea and vomiting. He has been doing daily dressing changes. He used the tube this morning it functioned well. History of CVA and swallowing difficulties. TRAVEL OUTSIDE OF THE [place] IN LAST 30 DAYS: No - Related Data Allergies/Adverse Reactions: varenicline tartrate [From Chantix] Allergy (Unknown, Verified 03/14/20 10:16) amoxicillin Allergy (Verified 03/14/20 10:16) Penicillins Allergy (Verified 03/14/20 10:16) Past Medical History - Social History Smoking Status: Current Every Day Smoker Chew tobacco use (# tins/day): No Frequency of alcohol use: None Drug Abuse: None Family History: None, Reviewed & Not Pertinent, COPD Patient has homicidal ideation: No - Past Medical History Cardiac Medical History: Reports: Hx Coronary Artery Disease, Hx Hypercholesterolemia, Hx Hypertension Denies: Hx Congestive Heart Failure, Hx Heart Attack Pulmonary Medical History: Reports: Hx COPD, Hx Pneumonia Denies: Hx Asthma, Hx Bronchitis, Hx Tuberculosis Neurological Medical History: Reports: Hx Cerebrovascular Accident - left side effected. Denies: Hx Seizures, Hx Parkinson's Disease Renal/ Medical History: Denies: Hx Benign Prostatic Hyperplasia, Hx End Stage Renal Disease, Hx Kidney Stones, Hx Peritoneal Dialysis GI Medical History: Reports: Hx Gastroesophageal Reflux Disease, Hx Ulcer. Denies: Hx Cirrhosis Musculoskeletal Medical History: Reports Hx Arthritis, Denies Hx Multiple Sclerosis Psychiatric Medical History: Reports: Hx Bipolar Disorder, Hx Depression, Hx Schizophrenia Past Surgical History: Reports: Hx Abdominal Surgery - hernia x 2, Hx Herniorrhaphy - Hernia repair x2 - Immunizations Hx Diphtheria, Pertussis, Tetanus Vaccination: No Review of Systems - Review of Systems Notes: Constitutional: Negative for fever. HENT: Negative for sore throat. Eyes: Negative for visual changes. Cardiovascular: Negative for chest pain. Respiratory: Negative for shortness of breath. Gastrointestinal: + Gastrostomy tube site drainage Genitourinary: Negative for dysuria. Musculoskeletal: Negative for back pain. Skin: Negative for rash. Neurological: Negative for headaches, weakness or numbness. 10 point ROS negative except as marked above and in HPI. Physical Exam - Vital signs Vitals: Temp Pulse Resp BP Pulse Ox 97.0 F 91 16 106/65 96 03/14/20 10:06 03/14/20 10:06 03/14/20 10:03/14/20 10:06 03/14/20 10:06 - Notes Notes: PHYSICAL EXAMINATION: Physical Exam: General: Well-nourished well-developed 54-year-old man in no acute distress HEENT: NC/AT, pupils equal round and reactive to light, MM moist,nares clear, oropharynx clear, airway patent Neck: supple, no adenopathy, no masses. Good range of motion Lungs: clear, no wheezing, no rales no rhonchi CVS: Regular rate and rhythm no murmur gallop or rub Abdomen: Soft, active, nontender, gastrostomy tube in the left abdominal wall. + Probable flash at the superior margin of the gastrostomy, mucopurulent dr moreno noted around the G-tube site. No cellulitis, no abscess, no masses, no hepatosplenomegaly Ext: No edema, clubbing or cyanosis. Neuro: Alert and responsive, moving all 4 extremities on command, cranial nerves intact, no focal findings Skin: Intact no open lesions, no rash PSYCH: Normal mood, normal affect. Course - Vital Signs Vital signs: Temp Pulse Resp BP Pulse Ox 97.0 F 91 16 106/65 96 03/14/20 10:06 03/14/20 10:03/14/20 10:03/14/20 10:03/14/20 10:06 Discharge - Discharge Clinical Impression: Irritation around percutaneous endoscopic gastrostomy (PEG) tube site, Hypertrophic granulation tissue Condition: Good Disposition: HOME, SELF-CARE Additional Instructions: You were seen in the emergency department today with complaint of irritation and pain at your G-tube site. Please take the antibiotics as prescribed, please keep the area of the tube site dry as possible. Please schedule an appointment with your surgeon regarding the hypertrophic granulation tissue at the tube site. If your symptoms are worsening or if you have other concerns you may return to the emergency department for further evaluation and treatment. HOME CARE INSTRUCTIONS & INFORMATION: Thank you for choosing us for your medical needs. We hope you're satisfied with the care you received. After you leave, you must properly care for your problem and, at the same time, observe its progress. Any condition can change. Some illnesses can change rapidly over hours or days. If your condition worsens, return to the Emergency Department or see your physician promptly. ABOUT YOUR X-RAYS AND EKG'S: If you had an EKG or X-rays taken, they have been read by the Emergency Physician. The X-rays and EKG's will also be read by a Radiologist or Pre Algebra Teacher within 24 hours. If discrepancies are noted, you will be notified by telephone. Please be certain the ED has a correct telephone number & address where you can be reached. Also, realize that some fractures or abnormalities do not show up on initial X-rays. If your symptoms continue, see your physician. ABOUT YOUR LABORATORY TEST: If you had laboratory tests, the results have been reviewed by the Emergency Physician. Some test results (for example cultures) may not be available for several days. You will be contacted if any test result shows you need additional treatment. Please be certain the ED has a correct telephone number and address where you can be reached. ABOUT YOUR MEDICATIONS: You will receive instructions on how to take your medicine on the prescription label you receive. Additional information may be provided by the Pharmacy. If you have questions afterwards, call the ED for clarification or further instructions. Some prescribed medications may cause d rowsiness. Do not perform tasks such as driving a car or operating machinery without consulting your Pharmacist. If you feel you need a refill of pain medication, your condition will need re-evaluation. Please do not call for a refill of any medication. ABOUT YOUR SIGNATURE: Signature of this document acknowledges to followin. Understanding that you received emergency treatment and that you may be released before al medical problems are known or treated. Please be certain the ED has a correct phone number & address where you can be reached. 2. Acknowledgement that you will arrange for follow-up care as recommended. 3. Authorization for the Emergency Physician to provide information to your follow-up Physician in order to maximize your care. AT ANY TIME, IF YOUR SYMPTOMS CHANGE SIGNIFICANTLY OR WORSEN OR YOU DEVELOP NEW SYMPTOMS, RETURN TO THE EMERGENCY DEPARTMENT IMMEDIATELY FOR RE-EVALUATION. OUR GOAL IS TO PROVIDE EXCELLENT MEDICAL CARE! WE HOPE THAT WE HAVE MET YOUR EXPECTATIONS DURING YOUR EMERGENCY DEPARTMENT VISIT AND THAT YOU FEEL YOU HAVE RECEIVED EXCELLENT CARE! Prescriptions: Cephalexin Monohydrate [Keflex 500 mg Capsule] 500 mg PO Q8 10 Days capsule Referrals: BASHIR KELLY MD [Primary Care Provider] - Follow up as needed
[2020-03-14] MEDS ORDERED: LIDOCAINE 1% INJ-PF (10 MG/ML) 30 ML SDV ONE (10:58)
[2020-03-14] MEDS ORDERED: LIDOCAINE 1% INJ-PF (10 MG/ML) 30 ML SDV IM ONE (11:21)
[2020-03-14] MEDS ORDERED: ACETAMINOPHEN 325 MG TABLET PO ONE (11:32)
[2020-03-14 12:13] VITALS: BP 115/63
== END 2020-03-14 12:13 | disposition home or self-care (01) ==
LOC: ER 10:02
DX: Z43.1 Encounter for attention to gastrostomy (principal); L91.0 Hypertrophic scar; F17.200 Nicotine dependence, unspecified, uncomplicated; E78.00 Pure hypercholesterolemia, unspecified; I10 Essential (primary) hypertension; I25.10 Atherosclerotic heart disease of native coronary artery without angina pectoris; J44.9 Chronic obstructive pulmonary disease, unspecified; I69.998 Other sequelae following unspecified cerebrovascular disease; Z88.0 Allergy status to penicillin
CPT/HCPCS: 99282; 96372; A9270; J3490; J0696